=== PATIENT | male | born 1950 | race Caucasian/White ===

== ENCOUNTER 2016-10-21 09:46 | Inpatient (IN) | payer MEDICARE, BC ==
[2016-10-21] MEDS ORDERED: SODIUM CHLORIDE 0.9% 1,000 ML IV ONE (10:01)
--- NOTE | 2016-10-21 10:16 | ED ---
Altered Mental Status HPI - General Chief Complaint: Altered Mental Status Stated Complaint: Lethargic, Confusion Time Seen by Provider: 10/21/16 09:49 Source: EMS, RN notes reviewed Mode of arrival: EMS - History of Present Illness Initial Comments: 66-year-old male presents to the emergency department with a chief complaint of lethargic and altered mental status from the residential. The patient per the residential woke up feeling confused. The patient he doesn't remember waking up in the residential last thing he remembers is waking up in the ambulance. The patient has no complaints. He does suffer from chronic back pain and leg pain the state that he got something for pain in the ambulance and now he is feeling better. The patient at this time has no complaints. The states that they called because he said that he was confused. The patient did suffer a recent hip surgery and is currently at rehabilitation to get better. The states that he normally knows what year it is. The patient at this time thinks it is 2071 when asked. Patient denies any pain at this time. Patient denies any chest pain or shortness of breath he denies headache. - Related Data Home Medications Medication Instructions Recorded Confirmed Aspirin 81 mg PO DAILY 12/21/15 10/21/16 Ergocalciferol [Vitamin D2 50,000 unit PO Q14D 12/21/15 10/21/16 (DRISDOL)] Ranolazine [Ranexa] 500 mg PO BID 12/21/15 10/21/16 Sevelamer [Renvela] 800 mg PO TID 12/21/15 10/21/16 Tamsulosin HCl [Flomax] 0.4 mg PO DAILY 12/21/15 10/21/16 Nitroglycerin Sl Tabs [Nitrostat] 0.4 mg SUBLINGUAL Q5M PRN 02/16/16 10/21/16 Allopurinol [Zyloprim] 200 mg PO HS 06/14/16 10/21/16 Pramipexole [Mirapex] 1 mg PO BID 06/14/16 10/21/16 Rosuvastatin Calcium [Crestor] 5 mg PO DAILY 06/14/16 10/21/16 Imatinib Mesylate [Gleevec] 200 mg PO BID 08/20/16 10/21/16 Cinacalcet [Sensipar] 30 mg PO MOWEFR 09/07/16 10/21/16 Magnesium Oxide [Mag-Ox] 400 mg PO BID 09/07/16 10/21/16 Acetaminophen Tab [Tylenol] 650 mg PO Q6HR PRN 10/21/16 10/21/16 Bisacodyl [Dulcolax] 10 mg RECTAL DAILY PRN 10/21/16 10/21/16 Darbepoetin Richy [Aranesp] 100 mcg SQ DAILY 10/21/16 10/21/16 Folic Acid-Vit B Complex-Vit C 1 cap PO DAILY 10/21/16 10/21/16 [Nephrocaps] Fosrenol Chew Tab 1 tab PO AC-TID 10/21/16 10/21/16 HYDROcodone/APAP 7.5-325MG [[place] 1 tab PO Q4H PRN 10/21/16 10/21/16 7.5-325] INSULIN LISPRO (humaLOG) [humaLOG 0 unit SQ ACHS 10/21/16 10/21/16 (formulary)] Levothyroxine Sodium [Synthroid] 300 mcg PO MOTUWETHFRSA 10/21/16 10/21/16 Levothyroxine Sodium [Synthroid] 450 mcg PO LEON 10/21/16 10/21/16 Magnesium Hydroxide [Milk of 2,400 mg PO BID 10/21/16 10/21/16 Magnesia] Midodrine HCl [ProAmatine] 10 mg PO AC-TID 10/21/16 10/21/16 Midodrine [ProAmatine] 10 mg PO TUTHSA 10/21/16 10/21/16 Na Phos,M-B/Na Phos,Di-Ba [[place] 133 ml RECTAL DAILY PRN 10/21/16 10/21/16 Adult] Sulfamethox-Tmp 800-160Mg [Bactrim 1 tab PO Q12HR 10/21/16 10/21/16 DS 800-160 mg] Warfarin [Coumadin] 2.5 mg PO SUMOTUTHSA 10/21/16 10/21/16 Warfarin [Coumadin] 5 mg PO WEFR 10/21/16 10/21/16 Previous Rx's Medication Instructions Recorded Budesonide-Formot 160-4.5 Mcg 2 puff INHALATION RT-BID puff 10/01/16 [Symbicort 160-4.5 Mcg Inhaler] Furosemide [Lasix] 80 mg PO BID@0900,1600 tab 10/01/16 INSULIN LISPRO (humaLOG) [humaLOG 5 unit SQ AC-TID vial 10/01/16 (formulary)] Insulin Glargine [Lantus] 15 unit SQ DAILY vial 10/01/16 Ipratropium-Albuterol Nebulize 3 ml INHALATION RT-QID ampul.neb 10/01/16 [Duoneb 0.5 mg-3 mg/3 ml Soln] Isosorbide Mononitrate ER [Imdur] 15 mg PO DAILY #30 dose 10/01/16 Lactulose [Cephulac] 30 gm PO TID PRN #0 ml 10/01/16 Lisinopril [Zestril] 2.5 mg PO DAILY #30 tablet 10/01/16 Metoprolol Tartrate 12.5 mg PO DAILY #30 tab 10/01/16 Pantoprazole [Protonix] 40 mg PO AC-BRKFST tablet. 10/01/16 Pregabalin [Lyrica] 50 mg PO HS #30 cap 10/01/16 Allergies Allergy/AdvReac Type Severity Reaction Status Date / Time No Known Allergies Allergy Verified 10/21/16 11:58 Review of Systems ROS Statement: Those systems with pertinent positive or pertinent negative responses have been documented in the HPI. ROS Other: All systems not noted in ROS Statement are negative. Past Medical History Past Medical History: Atrial Fibrillation, Coronary Artery Disease (CAD), Cancer , Chest Pain / Angina, COPD, CVA/TIA, Diabetes Mellitus, Dialysis, Eye Disorder , Hyperlipidemia, Hypertension, Myocardial Infarction ([place]), Prostate Disorder, Renal Disease, Sleep Apnea/CPAP/BIPAP, Thyroid Disorder Additional Past Medical History / Comment(s): Pt recently admitted to [facility] on with cellulitis bilateral lower extremities, toe cyanosis, mild acute/ chronic CHF. 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 Last Myocardial Infarction Date:: unknown History of Any Multi-Drug Resistant Organisms: None Reported Past Surgical History: Back Surgery, Cholecystectomy, Heart Catheterization, Orthopedic Surgery Additional Past Surgical History / Comment(s): 10/21/15 Unsuccessful PTCA proximal RCA, laminectomy, L knee surgery (stapled ligaments back to bone), heart cath x3 (no stents), insertion of peritoneal catheter, Removal of benign cyst from neck, colonoscopy. Past Anesthesia/Blood Transfusion Reactions: No Reported Reaction Past Psychological History: No Psychological Hx Reported Additional Psychological History / Comment(s): Pt resides with his spouse. He has a walker. He no longer drives, his spouse can drive. Smoking Status: Current every day smoker Past Alcohol Use History: None Reported Additional Past Alcohol Use History / Comment(s): started smoking age 13, now down to less than 1 PPD Past Drug Use History: None Reported Additional Drug Use History / Comment(s): . - Past Family History Mother Family Medical History: Cancer Additional Family Medical History / Comment(s): Mother of lung cancer at 86 yrs of age. Father Family Medical History: Cancer Additional Family Medical History / Comment(s): Patient has 2 brothers and 2 sisters which patient states are in good health. General Exam General appearance: alert, in no apparent distress Eye exam: Present: normal appearance, PERRL, EOMI. Absent: scleral icterus, conjunctival injection, periorbital swelling ENT exam: Present: normal exam, mucous membranes moist Neck exam: Present: normal inspection. Absent: tenderness, meningismus, lymphadenopathy Respiratory exam: Present: normal lung sounds bilaterally. Absent: respiratory distress, wheezes, rales, rhonchi, stridor Cardiovascular Exam: Present: regular rate, normal rhythm, normal heart sounds. Absent: systolic murmur, diastolic murmur, rubs, gallop, clicks GI/Abdominal exam: Present: soft, normal bowel sounds. Absent: distended, tenderness, guarding, rebound, rigid Neurological exam: Present: alert, altered (Patient is oriented to self and birthday patient is on oriented to day and date time.), CN II-XII intact. Absent: motor sensory deficit Psychiatric exam: Present: normal affect, normal mood Skin exam: Present: warm, dry, intact, normal color. Absent: rash Course Vital Signs 10/21/16 10/21/16 09:50 11:38 Temperature 97.8 F Pulse Rate 80 75 Respiratory 16 18 Rate Blood Pressure 102/59 97/52 O2 Sat by Pulse 94 L 99 Oximetry Medical Decision Making - Medical Decision Making 66-year-old male presents to the emergency department chief complaint of altered mental status. At this time patient's mentation has returned returned to normal. Laboratory is reviewed that does show stable hemoglobin as well as stable kidney function patient does appear to have an elevated BNP and there is fluid overloaded and evident on the x-ray. This time we will admit the patient we will consult nephrology for fluid assessment due to the fact the patient does not cry urine Lasix will not be used. This was discussed with the patient and family and their plan. All questions have been answered. Patient's admitting physician was contacted who does agree. Dr. Erickson was contacted. - Lab Data Result diagrams: 10/21/16 10:15 10/21/16 10:15 Lab Results 10/21/16 10/21/16 10/21/16 Range/Units 10:15 10:15 10:15 WBC 8.0 (3.8-10.6) k/uL RBC 2.56 L (4.30-5.90) m/uL Hgb 7.5 L (13.0-17.5) gm/dL Hct 24.9 L (39.0-53.0) % MCV 97.2 D (80.0-100.0) fL MCH 29.3 (25.0-35.0) pg MCHC 30.1 L (31.0-37.0) g/dL RDW 18.3 H (11.5-15.5) % Plt Count 177 (150-450) k/uL Neutrophils % 78 % Lymphocytes % 13 % Monocytes % 6 % Eosinophils % 1 % Basophils % 0 % Neutrophils # 6.2 (1.3-7.7) k/uL Lymphocytes # 1.1 (1.0-4.8) k/uL Monocytes # 0.5 (0-1.0) k/uL Eosinophils # 0.1 (0-0.7) k/uL Basophils # 0.0 (0-0.2) k/uL Hypochromasia Slight Anisocytosis Slight Macrocytosis Slight PT (9.0-12.0) sec INR (<1.1) APTT (22.0-30.0) sec Sodium (137-145) mmol/L Potassium (3.5-5.1) mmol/L Chloride (98-107) mmol/L Carbon Dioxide (22-30) mmol/L Anion Gap mmol/L BUN (9-20) mg/dL Creatinine (0.66-1.25) mg/dL Est GFR (MDRD) Af Amer (>60 ml/min/1.73 sqM) Est GFR (MDRD) Non-Af (>60 ml/min/1.73 sqM) Glucose (74-99) mg/dL Calcium (8.4-10.2) mg/dL Total Bilirubin (0.2-1.3) mg/dL AST (17-59) U/L ALT (21-72) U/L Alkaline Phosphatase (38-126) U/L Ammonia <9 (<30) umol/L Total Creatine Kinase 81 (55-170) U/L CK-MB (CK-2) 5.0 H* (0.0-2.4) ng/mL CK-MB (CK-2) Rel Index 6.2 Troponin I 0.067 H* (0.000-0.034) ng/mL NT-Pro-B Natriuret Pep pg/mL Total Protein (6.3-8.2) g/dL Albumin (3.5-5.0) g/dL 10/21/16 10/21/16 10/21/16 Range/Units 10:15 10:15 11:30 WBC (3.8-10.6) k/uL RBC (4.30-5.90) m/uL Hgb (13.0-17.5) gm/dL Hct (39.0-53.0) % MCV (80.0-100.0) fL MCH (25.0-35.0) pg MCHC (31.0-37.0) g/dL RDW (11.5-15.5) % Plt Count (150-450) k/uL Neutrophils % % Lymphocytes % % Monocytes % % Eosinophils % % Basophils % % Neutrophils # (1.3-7.7) k/uL Lymphocytes # (1.0-4.8) k/uL Monocytes # (0-1.0) k/uL Eosinophils # (0-0.7) k/uL Basophils # (0-0.2) k/uL Hypochromasia Anisocytosis Macrocytosis PT 18.4 H (9.0-12.0) sec INR 1.9 (<1.1) APTT 35.8 H (22.0-30.0) sec Sodium 139 (137-145) mmol/L Potassium 4.6 (3.5-5.1) mmol/L Chloride 97 L (98-107) mmol/L Carbon Dioxide 32 H (22-30) mmol/L Anion Gap 10 mmol/L BUN 26 H (9-20) mg/dL Creatinine 3.44 H (0.66-1.25) mg/dL Est GFR (MDRD) Af Amer 22 (>60 ml/min/1.73 sqM) Est GFR (MDRD) Non-Af 18 (>60 ml/min/1.73 sqM) Glucose 68 L (74-99) mg/dL Calcium 7.4 L (8.4-10.2) mg/dL Total Bilirubin 0.4 (0.2-1.3) mg/dL AST 22 (17-59) U/L ALT 29 (21-72) U/L Alkaline Phosphatase 143 H (38-126) U/L Ammonia (<30) umol/L Total Creatine Kinase (55-170) U/L CK-MB (CK-2) (0.0-2.4) ng/mL CK-MB (CK-2) Rel Index Troponin I (0.000-0.034) ng/mL NT-Pro-B Natriuret Pep 03883 pg/mL Total Protein 4.8 L (6.3-8.2) g/dL Albumin 2.5 L (3.5-5.0) g/dL - Radiology Data Radiology results: report reviewed, image reviewed Disposition Clinical Impression: CHF (congestive heart failure), Altered mental status, Elevated troponin I level, Anemia, Acute exacerbation of chronic low back pain, End stage renal failure on dialysis, Volume overload Disposition: ADMITTED IP TO THIS [facility] Condition: Stable Time of Disposition: 13:04 Decision Date: 10/21/16 Decision Time: 13:04
[2016-10-21 10:38] LABS: Anisocytosis Slight; Basophils % (A) 0 %; CH 30.6; CHCM 31.7; Eosinophils # (A) 0.1 k/uL (0-0.7); Eosinophils % (A) 1 %; HCT 24.9 % (39.0-53.0); HDW 3.18; HGB 7.5 gm/dL (13.0-17.5); Hypochromasia Slight; Luc # (Auto) 0.09; Luc % (Auto) 1; Lymphocytes # (A) 1.1 k/uL (1.0-4.8); Lymphocytes % (A) 13 %; MCH 29.3 pg (25.0-35.0); MCHC 30.1 g/dL (31.0-37.0); Macrocytosis Slight; Mean Platelet Volume 8.5; Monocytes # (A) 0.5 k/uL (0-1.0); Monocytes % (A) 6 %; Neutrophils # (A) 6.2 k/uL (1.3-7.7); Neutrophils % (A) 78 %; RBC 2.56 m/uL (4.30-5.90); RDW 18.3 % (11.5-15.5); WBC (Perox) 8.35
[2016-10-21 10:41] LABS: MCV 97.2 fL (80.0-100.0)
[2016-10-21 10:47] LABS: Calcium 7.4 mg/dL (8.4-10.2); INR 1.9 (<1.1); Partial Thromboplastin Time 35.8 sec (22.0-30.0); Potassium 4.6 mmol/L (3.5-5.1); Prothrombin Time 18.4 sec (9.0-12.0); Total Bilirubin 0.4 mg/dL (0.2-1.3); Total Protein 4.8 g/dL (6.3-8.2)
[2016-10-21 11:20] LABS: Troponin I 0.067 ng/mL (0.000-0.034)
--- NOTE | 2016-10-21 11:24 | CT ---
EXAMINATION TYPE: CT brain wo con DATE OF EXAM: 10/21/2016 10:42 AM COMPARISON: 09/14/2016 HISTORY: altered mental status, lethargic CT DLP: 978.[address] of the brain was performed. The ventricles, basal cisterns and sulci overlying the cerebral convexities demonstrate mild enlargem ent. There is no evidence for intracranial hemorrhage or sulcal effacement. There is decreased attenuation about the periventricular white matter and deep white matter of both c erebral hemispheres, compatible with chronic small vessel ischemia. Differential diagnosis does inclu de demyelination. No mass effects are seen.No midline shift. Osseous calvarium is intact. Chronic sinusitis right maxillary sinus. If symptoms persist consider MRI. IMPRESSION: 1. Age related atrophic and chronic small vessel ischemic change without acute intracranial process s een at this time.
--- NOTE | 2016-10-21 11:26 | XR ---
EXAMINATION TYPE: XR chest 2V DATE OF EXAM: 10/21/2016 10:46 AM COMPARISON: 09/29/2016 HISTORY: Shortness of breath TECHNIQUE: Frontal and lateral views of the chest are obtained. FINDINGS: Large bore central venous line. Scattered senescent parenchymal changes noted. Hyperinflation compatible with COPD. The heart is enlarged. Pulmonary venous congestion with scattered areas of infiltrate may reflect vas cular overload. Mediastinal structures are stable and grossly unremarkable. No evidence for hilar prominence. Degenerative changes dorsal spine. IMPRESSION: 1. The heart is enlarged. Pulmonary venous congestion with scattered areas of infiltrate may reflect vascular overload.
[2016-10-21] MEDS ORDERED: ACETAMINOPHEN TAB 325 MG TAB PO PRN (13:05)
[2016-10-21] MEDS ORDERED: NITROGLYCERIN SL TABS 0.4 MG TAB SUBLINGUAL PRN (13:05)
[2016-10-21] MEDS ORDERED: NA PHOS,M-B/NA PHOS,DI-BA 133 ML ENEMA RECTAL PRN (13:05)
[2016-10-21] MEDS ORDERED: LACTULOSE 20 GM/30 ML CUP PO PRN (13:05)
[2016-10-21] MEDS ORDERED: BISACODYL 10 MG SUPP RECTAL PRN (13:05)
[2016-10-21] MEDS: HYDROcodone/APAP 7.5-325MG 1 EACH TAB PO PRN ×3 (13:39→20:16)
[2016-10-21] MEDS: SEVELAMER 800 MG TAB PO SCH ×2 (15:31→15:32)
[2016-10-21] MEDS: IPRATROPIUM-ALBUTEROL 3 ML NEB INHALATION SCH ×2 (15:34→19:53)
[2016-10-21 16:49] LABS: Glucose,Whole Blood 135 mg/dL (75-99)
[2016-10-21] MEDS: MIDODRINE 5 MG TAB PO SCH (16:49)
[2016-10-21] MEDS: COLLAGENASE 250 UNIT/GM OINTMENT 30 GM TUBE TOPICAL SCH (16:49)
[2016-10-21] MEDS ORDERED: WARFARIN 2.5 MG TAB PO SCH (18:00)
[2016-10-21] MEDS: INSULIN LISPRO (humaLOG) 300 UNIT/3 ML VIAL SQ SCH ×2 (18:05→21:34)
[2016-10-21] MEDS: FUROSEMIDE 80 MG TAB PO SCH (18:30)
[2016-10-21] MEDS: SYMBICORT 160-4.5 MCG INHALER INHALATION SCH (19:52)
[2016-10-21 20:10] LABS: Creatine Kinase MB 6.2 ng/mL (0.0-2.4); Troponin I 0.072 ng/mL (0.000-0.034)
[2016-10-21] MEDS: ALLOPURINOL 100 MG TAB PO SCH (20:19)
[2016-10-21] MEDS: MAGNESIUM OXIDE 400 MG TAB PO SCH (20:20)
[2016-10-21] MEDS: PRAMIPEXOLE 1 MG TAB PO SCH (20:20)
[2016-10-21] MEDS: MAGNESIUM HYDROXIDE 2,400 MG/10 ML CUP PO SCH ×2 (20:20→20:26)
[2016-10-21] MEDS: PREGABALIN 50 MG CAP PO SCH (20:21)
[2016-10-21] MEDS: RANOLAZINE 500 MG TAB.ER.12H PO SCH (20:21)
[2016-10-21] MEDS: SULFAMETHOX-TMP 800-160MG 1 EACH TAB PO SCH (20:21)
[2016-10-21 20:45] LABS: Glucose,Whole Blood 159 mg/dL (75-99)
[2016-10-22] MEDS: HYDROcodone/APAP 7.5-325MG 1 EACH TAB PO PRN ×3 (00:08→13:51)
[2016-10-22] MEDS ORDERED: HEPARIN SODIUM,PORCINE 5,000 UNIT/ML 1 ML VIAL ONE (01:10)
[2016-10-22 02:29] LABS: Creatine Kinase MB 6.2 ng/mL (0.0-2.4)
[2016-10-22 02:30] LABS: Troponin I 0.067 ng/mL (0.000-0.034)
[2016-10-22 05:48] LABS: Glucose,Whole Blood 115 mg/dL (75-99)
[2016-10-22 06:14] LABS: Anisocytosis Slight; Basophils % (A) 0 %; CH 29.9; CHCM 30.1; Eosinophils # (A) 0.1 k/uL (0-0.7); Eosinophils % (A) 1 %; HCT 25.5 % (39.0-53.0); HDW 3.06; HGB 7.8 gm/dL (13.0-17.5); Hypochromasia Marked; Luc # (Auto) 0.11; Luc % (Auto) 2; Lymphocytes # (A) 0.7 k/uL (1.0-4.8); Lymphocytes % (A) 10 %; MCH 30.6 pg (25.0-35.0); MCHC 30.6 g/dL (31.0-37.0); MCV 100.1 fL (80.0-100.0); Macrocytosis Slight; Mean Platelet Volume 7.8; Monocytes # (A) 0.4 k/uL (0-1.0); Monocytes % (A) 5 %; Neutrophils # (A) 6.3 k/uL (1.3-7.7); Neutrophils % (A) 83 %; RBC 2.55 m/uL (4.30-5.90); RDW 17.9 % (11.5-15.5); WBC 7.7 k/uL (3.8-10.6); WBC (Perox) 8.19
[2016-10-22 06:20] LABS: INR 1.9 (<1.1); Prothrombin Time 18.5 sec (9.0-12.0)
[2016-10-22 06:29] LABS: Calcium 7.6 mg/dL (8.4-10.2); Potassium 4.9 mmol/L (3.5-5.1); Total Bilirubin 0.4 mg/dL (0.2-1.3); Total Protein 4.8 g/dL (6.3-8.2)
[2016-10-22] MEDS: MIDODRINE 5 MG TAB PO SCH ×3 (06:40→17:21)
[2016-10-22] MEDS: INSULIN LISPRO (humaLOG) 300 UNIT/3 ML VIAL SQ SCH ×3 (06:40→17:23)
[2016-10-22] MEDS: LEVOTHYROXINE 100 MCG TAB PO SCH (06:40)
[2016-10-22] MEDS: SEVELAMER 800 MG TAB PO SCH ×3 (06:40→17:21)
[2016-10-22] MEDS: PANTOPRAZOLE 40 MG TABLET PO SCH (06:40)
--- NOTE | 2016-10-22 07:59 | P.HPIM ---
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 under the care of hematology oncology, was recently hospitalized at [facility] for a prolonged period of time after he fell at dialysis ended up with left intertrochanteric hip fracture subsequently was found to have a third-degree of blood for which she was placed on transvenous pacemaker subsequent he was switched to a permanent pacemaker because of that, his hospital stay was complicated by acute respiratory failure , severe medical debility, pneumonia, he ended up getting transferred to [facility] for physical therapy rehabitation patient has been doing fine up until recently when he developed to have a significant pain and the gangrenous changes in the bilateral total secondary to severe PAD and has been under the care of Dr. Farrell and he was supposed to follow-up with him as an outpatient. Yesterday in the morning patient became quite unresponsive his blood glucose dropped to 67 and the patient became quite unresponsive he was transferred to the emergency department at [facility] and computed tomography scan the brain did not show any evidence of acute infarct or bleed a chest x-ray showed congestive heart failure even though the patient didn't receive dialysis 4 times last week, and the patient was having severe gangrenous changes and his left foot for which we contacted Dr. Farrell for possible amputation while his in the hospital. Review of Systems Constitutional: Reports chronic pain, Reports fatigue, Reports lethargy, Reports malaise, Reports weakness, Reports weight loss Eyes: bilateral blurred vision, denies bulging eye, denies decreased vision, denies diplopia Ears: bilateral: decreased hearing Ears, nose, mouth and throat: Denies dysphagia, Denies neck lump, Denies sore throat Cardiovascular: Reports decreased exercise tolerance, Reports dyspnea on exertion, Reports high blood pressure, Reports irregular heart beat, Reports shortness of breath, Denies chest pain, Denies rapid heart beat, Denies syncope Respiratory: Reports dyspnea, Reports sleep apnea, Reports snoring, Denies congestion, Denies cough, Denies cough with sputum, Denies home oxygen, Denies wheezing Gastrointestinal: Reports nausea, Denies abdominal pain, Denies bloating, Denies BRBPR, Denies heartburn, Denies hematemesis, Denies hematochezia, Denies indigestion, Denies melena, Denies vomiting Genitourinary: Reports dysuria, Denies polyuria Musculoskeletal: Reports fractures, Reports frequent falls, Reports gait dysfunction, Reports low back pain, Reports morning stiffness Musculoskeletal: left: ankle pain, ankle stiffness, ankle swelling, hip pain, bilateral: foot pain, absent: as per HPI, elbow pain, elbow stiffness, elbow swelling, foot stiffness, hand pain, hand stiffness, hand swelling, hip stiffness, hip swelling, knee pain, knee stiffness, knee swelling, shoulder pain , shoulder stiffness, shoulder swelling, wrist pain, wrist stiffness, wrist swelling Integumentary: Denies pruritus, Denies rash Neurological: Reports confusion, Reports gait dysfunction, Reports weakness, Reports visual changes Psychiatric: Reports anxiety, Reports depression, Reports sleep disturbances, Denies suicidal ideation Endocrine: Denies fatigue, Denies weight change Past Medical History Past Medical History: Atrial Fibrillation, Coronary Artery Disease (CAD), Cancer , Chest Pain / Angina, COPD, CVA/TIA, Diabetes Mellitus, Dialysis, Eye Disorder , Hyperlipidemia, Hypertension, Myocardial Infarction (CA), Prostate Disorder, Renal Disease, Sleep Apnea/CPAP/BIPAP, Thyroid Disorder Additional Past Medical History / Comment(s): Pt recently admitted to [facility] on with cellulitis bilateral lower extremities, toe cyanosis, mild acute/ chronic CHF. Other HX: IDDM type II-insulin pump, ESRD dialysis-peritoneal , nephrolithiasis, chronic anemia, leukemia-CML, metabolic bone disease, abnormal [place] chromosome, "slight stroke"-no deficits, htn cardiovascular disease, chronic CHF, PAD, current discolored toes, chronic low back pain-nerve damage from injury, SAMANTHA doesn't wear his bipap, diabetic neuropathy bilateral legs and feet, diabetic retinopathy, gout, DDD, diverticulosis, vertigo, RLS, BPH. Last Myocardial Infarction Date:: unknown History of Any Multi-Drug Resistant Organisms: None Reported Past Surgical History: Back Surgery, Cholecystectomy, Heart Catheterization, Orthopedic Surgery Additional Past Surgical History / Comment(s): 10/21/15 Unsuccessful PTCA proximal RCA, laminectomy, L knee surgery (stapled ligaments back to bone), heart cath x3 (no stents), insertion of peritoneal catheter, Removal of benign cyst from neck, colonoscopy. Past Anesthesia/Blood Transfusion Reactions: No Reported Reaction Past Psychological History: No Psychological Hx Reported Additional Psychological History / Comment(s): Pt resides with his spouse. He has a walker. He no longer drives, his spouse can drive. Smoking Status: Current every day smoker Past Alcohol Use History: None Reported Additional Past Alcohol Use History / Comment(s): started smoking age 13, now down to less than 1 PPD Past Drug Use History: None Reported Additional Drug Use History / Comment(s): . - Past Family History Mother Family Medical History: Cancer Additional Family Medical History / Comment(s): Mother of lung cancer at 86 yrs of age. Father Family Medical History: Cancer Additional Family Medical History / Comment(s): Patient has 2 brothers and 2 sisters which patient states are in good health. Medications and Allergies Home Medications Medication Instructions Recorded Confirmed Type Aspirin 81 mg PO DAILY 12/21/15 10/21/16 History Ergocalciferol [Vitamin D2 50,000 unit PO Q14D 12/21/15 10/21/16 History (DRISDOL)] Ranolazine [Ranexa] 500 mg PO BID 12/21/15 10/21/16 History Sevelamer [Renvela] 800 mg PO TID 12/21/15 10/21/16 History Tamsulosin HCl [Flomax] 0.4 mg PO DAILY 12/21/15 10/21/16 History Nitroglycerin Sl Tabs [Nitrostat] 0.4 mg SUBLINGUAL Q5M PRN 02/16/16 10/21/16 History Allopurinol [Zyloprim] 200 mg PO HS 06/14/16 10/21/16 History Pramipexole [Mirapex] 1 mg PO BID 06/14/16 10/21/16 History Rosuvastatin Calcium [Crestor] 5 mg PO DAILY 06/14/16 10/21/16 History Imatinib Mesylate [Gleevec] 200 mg PO BID 08/20/16 10/21/16 History Cinacalcet [Sensipar] 30 mg PO MOWEFR 09/07/16 10/21/16 History Magnesium Oxide [Mag-Ox] 400 mg PO BID 09/07/16 10/21/16 History Acetaminophen Tab [Tylenol] 650 mg PO Q6HR PRN 10/21/16 10/21/16 History Bisacodyl [Dulcolax] 10 mg RECTAL DAILY PRN 10/21/16 10/21/16 History Darbepoetin Richy [Aranesp] 100 mcg SQ DAILY 10/21/16 10/21/16 History Folic Acid-Vit B Complex-Vit C 1 cap PO DAILY 10/21/16 10/21/16 History [Nephrocaps] Fosrenol Chew Tab 1 tab PO AC-TID 10/21/16 10/21/16 History HYDROcodone/APAP 7.5-325MG [[place] 1 tab PO Q4H PRN 10/21/16 10/21/16 History 7.5-325] INSULIN LISPRO (humaLOG) [humaLOG 0 unit SQ ACHS 10/21/16 10/21/16 History (formulary)] Levothyroxine Sodium [Synthroid] 300 mcg PO MOTUWETHFRSA 10/21/16 10/21/16 History Levothyroxine Sodium [Synthroid] 450 mcg PO LEON 10/21/16 10/21/16 History Magnesium Hydroxide [Milk of 2,400 mg PO BID 10/21/16 10/21/16 History Magnesia] Midodrine HCl [ProAmatine] 10 mg PO AC-TID 10/21/16 10/21/16 History Midodrine [ProAmatine] 10 mg PO TUTHSA 10/21/16 10/21/16 History Na Phos,M-B/Na Phos,Di-Ba [Fleet 133 ml RECTAL DAILY PRN 10/21/16 10/21/16 History Adult] Sulfamethox-Tmp 800-160Mg [Bactrim 1 tab PO Q12HR 10/21/16 10/21/16 History DS 800-160 mg] Warfarin [Coumadin] 2.5 mg PO SUMOTUTHSA 10/21/16 10/21/16 History Warfarin [Coumadin] 5 mg PO WEFR 10/21/16 10/21/16 History Allergies Allergy/AdvReac Type Severity Reaction Status Date / Time No Known Allergies Allergy Verified 10/21/16 11:58 Physical Exam Vitals: Vital Signs Temp Pulse Resp BP Pulse Ox 10/21/16 13:29 98.0 F 77 18 97/51 96 - Constitutional General appearance: average body habitus, mild distress - EENT Eyes: anicteric sclerae, EOMI, PERRLA, no ptosis, no scleral icterus, normal appearance ENT: hard of hearing, normal oropharynx, no thrush Ears: bilateral: normal - Neck Neck: no lymphadenopathy, normal ROM, no rigidity, no stridor, no thyromegaly Carotids: bilateral: upstroke delayed Thyroid: bilateral: normal size - Respiratory Respiratory: bilateral: diminished, negative: dullness, rales, rhonchi, wheezing , prolonged expiration - Cardiovascular Rhythm: irregularly irregular Heart sounds: normal: S1, S2 Abnormal Heart Sounds: systolic murmur, no rub (Permanent pacemaker ), no click - Gastrointestinal General gastrointestinal: normal bowel sounds, soft, no splenomegaly, no tenderness, no umbilical hernia, no ventral hernia - Integumentary Integumentary: normal, normal turgor, ulcer (Left heel and the right heel with gangrenous changes especially in the left foot more than the right toes.) - Neurologic Neurologic: CNII-XII intact - Musculoskeletal Musculoskeletal: generalized weakness, strength equal bilaterally - Psychiatric Psychiatric: A&O x's 3, appropriate affect, intact judgment & insight Results CBC & Chem 7: 10/22/16 05:28 10/22/16 05:28 Thrombosis Risk Factor Assmnt - DVT/VTE Prophylaxis DVT/VTE Prophylaxis: Pharmacologic Prophylaxis ordered, Mechanical Prophylaxis ordered Assessment and Plan Plan: Assessment and plan: 1. Altered level of consciousness most likely secondary to metabolic encephalopathy and hypoglycemia, has recovered very well since he was seen in the emergency department. 2. Acute diastolic heart failure. Patient will be going for another session of dialysis. Meanwhile continue Lasix 80 mg orally twice every day, lisinopril 2.5 mg orally once every day, metoprolol 12.5 mg orally once every day. 3. Atherosclerotic cardiovascular disease . Continue Imdur 15 mg orally once every day, metoprolol 12.5 mg orally once every day, Lipitor 20 mg orally once every day, aspirin 81 mg orally once every day, Plavix 75 mg orally once every day. 4. Severe PAD . With gangrenous changes to the left foot and the right toes consult general surgery for possible amputation. 5. Chronic diastolic heart failure with mild exacerbation. Continue patient on peritoneal dialysis.IV diuretics Lasix 80 mg every 12 hours. 6. Diabetes mellitus type 2. Hold off his Lantus as well as his Humalog because of hyperglycemia. Restart tomorrow morning 7. hypothyroidism continue levothyroxine to 300 g orally daily. 8. hyperlipidemia. We'll continue Lipitor 10 mg orally once every day. 9.End-stage renal disease . Continue patient on hemodialysis through permanent catheter, patient will have his PD catheter removed by Dr. reis supposedly on Saturday. Continue Sensipar 30 mg and Saturday, continue Renvela 800 mg orally 3 times every day, continue Aranesp 100 g once every week. 10. Hypertension and hypertensive cardiovascular disease. Continue lisinopril 2.5 mg orally once every day, metoprolol 12.5 mg orally once every day. 11. Restless leg syndrome. Continue Mirapex 1 mg orally twice every day. 12. Gout. Stable. 13. Paroxysmal atrial fibrillation. Continue Coumadin keep his INR between 2- 3. 14. 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 15. CML. Stable. 16. BPH. Continue with Flomax 0.4 mg orally once every day. 17.Peripheral neuropathy . Continue Lyrica 50 mg orally bedtime. 18. Status post left IT fracture with IM nail with an infected wound currently on Bactrim double strength twice every day. 19. DVT prophylaxis. Continue Coumadin for now. 20. GI prophylaxis. Continue Protonix 40 mg orally once every day. 21. Patient would want CPR but he does not want intubation. 22. Overall prognosis is guarded. 23. Admit to inpatient. Estimate a length of stay 2 midnights.
[2016-10-22] MEDS: COLLAGENASE 250 UNIT/GM OINTMENT 30 GM TUBE TOPICAL SCH (08:44)
[2016-10-22] MEDS: MAGNESIUM OXIDE 400 MG TAB PO SCH ×2 (08:52→20:38)
[2016-10-22] MEDS: ISOSORBIDE MONONITRATE ER 15 MG TAB PO SCH (08:52)
[2016-10-22] MEDS: FOLIC ACID-VIT B COMPLEX-VIT C 1 CAP PO SCH (08:53)
[2016-10-22] MEDS: ATORVASTATIN 10 MG TAB PO SCH (08:53)
[2016-10-22] MEDS: SULFAMETHOX-TMP 800-160MG 1 EACH TAB PO SCH (08:53)
[2016-10-22] MEDS: TAMSULOSIN 0.4 MG CAP.ER.24H PO SCH (08:53)
[2016-10-22] MEDS: FUROSEMIDE 80 MG TAB PO SCH ×2 (08:53→16:04)
[2016-10-22] MEDS: ASPIRIN 81 MG CHEW PO SCH (08:53)
[2016-10-22] MEDS: MAGNESIUM HYDROXIDE 2,400 MG/10 ML CUP PO SCH ×2 (08:53→20:38)
[2016-10-22] MEDS: PRAMIPEXOLE 1 MG TAB PO SCH ×2 (08:53→20:37)
[2016-10-22] MEDS: LISINOPRIL 2.5 MG TAB PO SCH (08:53)
[2016-10-22] MEDS: METOPROLOL TARTRATE 12.5 MG TAB PO SCH (08:54)
[2016-10-22] MEDS: RANOLAZINE 500 MG TAB.ER.12H PO SCH ×2 (09:02→20:38)
[2016-10-22] MEDS: IPRATROPIUM-ALBUTEROL 3 ML NEB INHALATION SCH ×4 (10:32→20:45)
[2016-10-22] MEDS: SYMBICORT 160-4.5 MCG INHALER INHALATION SCH ×2 (10:32→20:45)
[2016-10-22 11:41] VITALS: BMI 38.1
[2016-10-22] MEDS: DARBEPOETIN ALFA 100MCG/0.5ML SYRINGE SQ SCH (11:41)
[2016-10-22 11:55] LABS: Glucose,Whole Blood 131 mg/dL (75-99)
[2016-10-22] MEDS ORDERED: ASPIRIN 325 MG TAB PO SCH (12:00)
[2016-10-22] MEDS ORDERED: CINACALCET 30 MG TAB PO SCH (12:00)
--- NOTE | 2016-10-22 14:09 | P.PN ---
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 for physical therapy rehabitation patient has been doing fine up until recently when he developed to have a significant pain and the gangrenous changes in the bilateral total secondary to severe PAD and has been under the care of Dr. Farrell and he was supposed to follow-up with him as an outpatient. Yesterday in the morning patient became quite unresponsive his blood glucose dropped to 67 and the patient became quite unresponsive he was transferred to the emergency department at [facility] and computed tomography scan the brain did not show any evidence of acute infarct or bleed a chest x-ray showed congestive heart failure even though the patient didn't receive dialysis 4 times last week, and the patient was having severe gangrenous changes and his left foot for which we contacted Dr. Farrell for possible amputation while his in the hospital. 10/22: Repeat BUN 23 and creatinine 3.27. INR 1.9, alkaline phosphatase 152. Hemoglobin 7.8. Complete blood glucose running between 115 and 159. Consult pending for Dr. Farrell and nephrology are following. Consult with Dr. Winters as patient is scheduled for CAPD removal on Saturday. Objective - Vital Signs Vital signs: Vital Signs Temp 97.0 F L 10/22/16 04:00 Pulse 56 L 10/22/16 04:00 Resp 18 10/22/16 04:00 BP 112/60 10/22/16 04:00 Pulse Ox 90 L 10/22/16 04:00 Intake & Output 10/21/16 10/22/16 10/22/16 18:59 06:59 18:59 Output Total 220 Balance -220 Weight 114 kg 110.5 kg Output: Urine 220 Other: # Voids 1 - Exam General appearance: average body habitus, mild distress - EENT Eyes: anicteric sclerae, EOMI, PERRLA, no ptosis, no scleral icterus, normal appearance ENT: hard of hearing, normal oropharynx, no thrush Ears: bilateral: normal - Neck Neck: no lymphadenopathy, normal ROM, no rigidity, no stridor, no thyromegaly Carotids: bilateral: upstroke delayed Thyroid: bilateral: normal size - Respiratory Respiratory: bilateral: diminished, negative: dullness, rales, rhonchi, wheezing , prolonged expiration - Cardiovascular Rhythm: irregularly irregular Heart sounds: normal: S1, S2 Abnormal Heart Sounds: systolic murmur, no rub (Permanent pacemaker ), no click - Gastrointestinal General gastrointestinal: normal bowel sounds, soft, no splenomegaly, no tenderness, no umbilical hernia, no ventral hernia - Integumentary Integumentary: normal, normal turgor, ulcer (Left heel and the right heel with gangrenous changes especially in the left foot more than the right toes.) - Neurologic Neurologic: CNII-XII intact - Musculoskeletal Musculoskeletal: generalized weakness, strength equal bilaterally - Psychiatric Psychiatric: A&O x's 3, appropriate affect, intact judgment & insight - Labs CBC & Chem 7: 10/22/16 05:28 10/22/16 05:28 Labs: Abnormal Lab Results - Last 24 Hours (Table) 10/21/16 10/21/16 10/21/16 Range/Units 16:48 18:57 20:44 RBC (4.30-5.90) m/uL Hgb (13.0-17.5) gm/dL Hct (39.0-53.0) % MCV (80.0-100.0) fL MCHC (31.0-37.0) g/dL RDW (11.5-15.5) % Lymphocytes # (1.0-4.8) k/uL PT (9.0-12.0) sec Chloride (98-107) mmol/L Carbon Dioxide (22-30) mmol/L BUN (9-20) mg/dL Creatinine (0.66-1.25) mg/dL Glucose (74-99) mg/dL POC Glucose (mg/dL) 135 H 159 H (75-99) mg/dL Calcium (8.4-10.2) mg/dL Alkaline Phosphatase (38-126) U/L CK-MB (CK-2) 6.2 H* (0.0-2.4) ng/mL Troponin I 0.072 H* (0.000-0.034) ng/mL Total Protein (6.3-8.2) g/dL Albumin (3.5-5.0) g/dL 10/22/16 10/22/16 10/22/16 Range/Units 01:26 05:28 05:28 RBC 2.55 L (4.30-5.90) m/uL Hgb 7.8 L (13.0-17.5) gm/dL Hct 25.5 L (39.0-53.0) % MCV 100.1 H (80.0-100.0) fL MCHC 30.6 L (31.0-37.0) g/dL RDW 17.9 H (11.5-15.5) % Lymphocytes # 0.7 L (1.0-4.8) k/uL PT 18.5 H (9.0-12.0) sec Chloride (98-107) mmol/L Carbon Dioxide (22-30) mmol/L BUN (9-20) mg/dL Creatinine (0.66-1.25) mg/dL Glucose (74-99) mg/dL POC Glucose (mg/dL) (75-99) mg/dL Calcium (8.4-10.2) mg/dL Alkaline Phosphatase (38-126) U/L CK-MB (CK-2) 6.2 H* (0.0-2.4) ng/mL Troponin I 0.067 H* (0.000-0.034) ng/mL Total Protein (6.3-8.2) g/dL Albumin (3.5-5.0) g/dL 10/22/16 10/22/16 Range/Units 05:28 05:46 RBC (4.30-5.90) m/uL Hgb (13.0-17.5) gm/dL Hct (39.0-53.0) % MCV (80.0-100.0) fL MCHC (31.0-37.0) g/dL RDW (11.5-15.5) % Lymphocytes # (1.0-4.8) k/uL PT (9.0-12.0) sec Chloride 97 L (98-107) mmol/L Carbon Dioxide 32 H (22-30) mmol/L BUN 23 H (9-20) mg/dL Creatinine 3.27 H (0.66-1.25) mg/dL Glucose 105 H (74-99) mg/dL POC Glucose (mg/dL) 115 H (75-99) mg/dL Calcium 7.6 L (8.4-10.2) mg/dL Alkaline Phosphatase 152 H (38-126) U/L CK-MB (CK-2) (0.0-2.4) ng/mL Troponin I (0.000-0.034) ng/mL Total Protein 4.8 L (6.3-8.2) g/dL Albumin 2.5 L (3.5-5.0) g/dL Assessment and Plan Plan: 1. Metabolic encephalopathy and hypoglycemia, has recovered very well since he was seen in the emergency department. 2. Acute diastolic heart failure. Patient will be going for another session of dialysis. Meanwhile continue Lasix 80 mg orally twice every day, lisinopril 2.5 mg orally once every day, metoprolol 12.5 mg orally once every day. 3. Atherosclerotic cardiovascular disease . Continue Imdur 15 mg orally once every day, metoprolol 12.5 mg orally once every day, Lipitor 20 mg orally once every day, aspirin 81 mg orally once every day, Plavix 75 mg orally once every day. 4. Severe PAD . With gangrenous changes to the left foot and the right toes consult general surgery for possible amputation. 5. Chronic diastolic heart failure with mild exacerbation. Continue patient on peritoneal dialysis.IV diuretics Lasix 80 mg every 12 hours. 6. Diabetes mellitus type 2. Hold off his Lantus as well as his Humalog because of hyperglycemia. Restart tomorrow morning 7. hypothyroidism continue levothyroxine to 300 g orally daily. 8. hyperlipidemia. We'll continue Lipitor 10 mg orally once every day. 9.End-stage renal disease . Continue patient on hemodialysis through permanent catheter, patient will have his PD catheter removed by Dr. reis supposedly on Saturday. Continue Sensipar 30 mg and Saturday, continue Renvela 800 mg orally 3 times every day, continue Aranesp 100 g once every week. Consult for Dr. Winters for CAPD removal 10. Hypertension and hypertensive cardiovascular disease. Continue lisinopril 2.5 mg orally once every day, metoprolol 12.5 mg orally once every day. 11. Restless leg syndrome. Continue Mirapex 1 mg orally twice every day. 12. Gout. Stable. 13. Paroxysmal atrial fibrillation. Continue Coumadin keep his INR between 2- 3. 14. 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 15. CML. Stable. 16. BPH. Continue with Flomax 0.4 mg orally once every day. 17.Peripheral neuropathy . Continue Lyrica 50 mg orally bedtime. 18. Status post left IT fracture with IM nail with an infected wound currently on Bactrim double strength twice every day. 19. DVT prophylaxis. Continue Coumadin for now. 20. GI prophylaxis. Continue Protonix 40 mg orally once every day. 21. Patient would want CPR but he does not want intubation. 22. Overall prognosis is guarded. Discharge plan: Impression and plan of care have been directed as dictated by the signing physician. Lacey Peck nurse practitioner acting as scribe for signing physician. Time with Patient: Greater than 30
--- NOTE | 2016-10-22 16:20 | P.GSCN ---
History of Present Illness Consult date: 10/22/16 Reason for Consult: Renal failure History of present illness: Patient is well known to our service. The patient is a history of renal failure. We placed a peritoneal dialysis catheter previously. He is having good flow but apparently the filtration is poor and for that reason he stopped using the peritoneal catheter. He is actually scheduled as an outpatient to have the catheter removed on 10/24. We are asked to see this patient for possibly removing the catheter while he is here. Review of Systems The patient denies any acute changes in his vision or hearing, no dysphagia or odynophagia, no chest pain or shortness of breath, no dysuria or hematuria, no headache, no runny nose, no rectal bleeding or melena, no unexplained weight loss Past Medical History Past Medical History: Atrial Fibrillation, Coronary Artery Disease (CAD), Cancer , Chest Pain / Angina, COPD, CVA/TIA, Diabetes Mellitus, Dialysis, Eye Disorder , Hyperlipidemia, Hypertension, Myocardial Infarction ([place]), Prostate Disorder, Renal Disease, Sleep Apnea/CPAP/BIPAP, Thyroid Disorder Additional Past Medical History / Comment(s): Pt recently admitted to [facility] on with cellulitis bilateral lower extremities, toe cyanosis, mild acute/ chronic CHF. Other HX: IDDM type II-insulin pump, ESRD dialysis-peritoneal , nephrolithiasis, chronic anemia, leukemia-CML, metabolic bone disease, abnormal [place] chromosome, "slight stroke"-no deficits, htn cardiovascular disease, chronic CHF, PAD, current discolored toes, chronic low back pain-nerve damage from injury, SAMANTHA doesn't wear his bipap, diabetic neuropathy bilateral legs and feet, diabetic retinopathy, gout, DDD, diverticulosis, vertigo, RLS, BPH. Last Myocardial Infarction Date:: unknown History of Any Multi-Drug Resistant Organisms: None Reported Past Surgical History: Back Surgery, Cholecystectomy, Heart Catheterization, Orthopedic Surgery Additional Past Surgical History / Comment(s): 10/21/15 Unsuccessful PTCA proximal RCA, laminectomy, L knee surgery (stapled ligaments back to bone), heart cath x3 (no stents), insertion of peritoneal catheter, Removal of benign cyst from neck, colonoscopy. Past Anesthesia/Blood Transfusion Reactions: No Reported Reaction Past Psychological History: No Psychological Hx Reported Additional Psychological History / Comment(s): Pt resides with his spouse. He has a walker. He no longer drives, his spouse can drive. Smoking Status: Current every day smoker Past Alcohol Use History: None Reported Additional Past Alcohol Use History / Comment(s): started smoking age 13, now down to less than 1 PPD Past Drug Use History: None Reported Additional Drug Use History / Comment(s): . - Past Family History Mother Family Medical History: Cancer Additional Family Medical History / Comment(s): Mother of lung cancer at 86 yrs of age. Father Family Medical History: Cancer Additional Family Medical History / Comment(s): Patient has 2 brothers and 2 sisters which patient states are in good health. Medications and Allergies Home Medications Medication Instructions Recorded Confirmed Type Aspirin 81 mg PO DAILY 12/21/15 10/21/16 History Ergocalciferol [Vitamin D2 50,000 unit PO Q14D 12/21/15 10/21/16 History (DRISDOL)] Ranolazine [Ranexa] 500 mg PO BID 12/21/15 10/21/16 History Sevelamer [Renvela] 800 mg PO TID 12/21/15 10/21/16 History Tamsulosin HCl [Flomax] 0.4 mg PO DAILY 12/21/15 10/21/16 History Nitroglycerin Sl Tabs [Nitrostat] 0.4 mg SUBLINGUAL Q5M PRN 02/16/16 10/21/16 History Allopurinol [Zyloprim] 200 mg PO HS 06/14/16 10/21/16 History Pramipexole [Mirapex] 1 mg PO BID 06/14/16 10/21/16 History Rosuvastatin Calcium [Crestor] 5 mg PO DAILY 06/14/16 10/21/16 History Imatinib Mesylate [Gleevec] 200 mg PO BID 08/20/16 10/21/16 History Cinacalcet [Sensipar] 30 mg PO MOWEFR 09/07/16 10/21/16 History Magnesium Oxide [Mag-Ox] 400 mg PO BID 09/07/16 10/21/16 History Acetaminophen Tab [Tylenol] 650 mg PO Q6HR PRN 10/21/16 10/21/16 History Bisacodyl [Dulcolax] 10 mg RECTAL DAILY PRN 10/21/16 10/21/16 History Darbepoetin Richy [Aranesp] 100 mcg SQ DAILY 10/21/16 10/21/16 History Folic Acid-Vit B Complex-Vit C 1 cap PO DAILY 10/21/16 10/21/16 History [Nephrocaps] HYDROcodone/APAP 7.5-325MG [[place] 1 tab PO Q4H PRN 10/21/16 10/21/16 History 7.5-325] INSULIN LISPRO (humaLOG) [humaLOG 0 unit SQ ACHS 10/21/16 10/21/16 History (formulary)] Levothyroxine Sodium [Synthroid] 300 mcg PO MOTUWETHFRSA 10/21/16 10/21/16 History Levothyroxine Sodium [Synthroid] 450 mcg PO LEON 10/21/16 10/21/16 History Magnesium Hydroxide [Milk of 2,400 mg PO BID 10/21/16 10/21/16 History Magnesia] Midodrine HCl [ProAmatine] 10 mg PO AC-TID 10/21/16 10/21/16 History Midodrine [ProAmatine] 10 mg PO TUTHSA 10/21/16 10/21/16 History Na Phos,M-B/Na Phos,Di-Ba [Fleet 133 ml RECTAL DAILY PRN 10/21/16 10/21/16 History Adult] Sulfamethox-Tmp 800-160Mg [Bactrim 1 tab PO Q12HR 10/21/16 10/21/16 History DS 800-160 mg] Warfarin [Coumadin] 2.5 mg PO SUMOTUTHSA 10/21/16 10/21/16 History Warfarin [Coumadin] 5 mg PO WEFR 10/21/16 10/21/16 History Lanthanum Carbonate [Fosrenol] 1,000 mg PO DIRECTED 10/22/16 10/22/16 History Allergies Allergy/AdvReac Type Severity Reaction Status Date / Time No Known Allergies Allergy Verified 10/21/16 11:58 Surgical - Exam Vital Signs Temp Pulse Resp BP Pulse Ox 97.8 F 80 16 102/59 94 L 10/21/16 09:50 10/21/16 09:50 10/21/16 09:50 10/21/16 09:50 10/21/16 09:50 Physical exam: General: Well-developed, well-nourished HEENT: Normocephalic, sclerae nonicteric Abdomen: Nontender, nondistended, pd Catheter noted Extremities: No edema Neuro: Confused Results - Labs 10/22/16 05:28 10/22/16 05:28 Abnormal Lab Results - Last 24 Hours (Table) 10/21/16 10/21/16 10/21/16 Range/Units 16:48 18:57 20:44 RBC (4.30-5.90) m/uL Hgb (13.0-17.5) gm/dL Hct (39.0-53.0) % MCV (80.0-100.0) fL MCHC (31.0-37.0) g/dL RDW (11.5-15.5) % Lymphocytes # (1.0-4.8) k/uL PT (9.0-12.0) sec Chloride (98-107) mmol/L Carbon Dioxide (22-30) mmol/L BUN (9-20) mg/dL Creatinine (0.66-1.25) mg/dL Glucose (74-99) mg/dL POC Glucose (mg/dL) 135 H 159 H (75-99) mg/dL Calcium (8.4-10.2) mg/dL Alkaline Phosphatase (38-126) U/L CK-MB (CK-2) 6.2 H* (0.0-2.4) ng/mL Troponin I 0.072 H* (0.000-0.034) ng/mL Total Protein (6.3-8.2) g/dL Albumin (3.5-5.0) g/dL 10/22/16 10/22/16 10/22/16 Range/Units 01:26 05:28 05:28 RBC 2.55 L (4.30-5.90) m/uL Hgb 7.8 L (13.0-17.5) gm/dL Hct 25.5 L (39.0-53.0) % MCV 100.1 H (80.0-100.0) fL MCHC 30.6 L (31.0-37.0) g/dL RDW 17.9 H (11.5-15.5) % Lymphocytes # 0.7 L (1.0-4.8) k/uL PT 18.5 H (9.0-12.0) sec Chloride (98-107) mmol/L Carbon Dioxide (22-30) mmol/L BUN (9-20) mg/dL Creatinine (0.66-1.25) mg/dL Glucose (74-99) mg/dL POC Glucose (mg/dL) (75-99) mg/dL Calcium (8.4-10.2) mg/dL Alkaline Phosphatase (38-126) U/L CK-MB (CK-2) 6.2 H* (0.0-2.4) ng/mL Troponin I 0.067 H* (0.000-0.034) ng/mL Total Protein (6.3-8.2) g/dL Albumin (3.5-5.0) g/dL 10/22/16 10/22/16 10/22/16 Range/Units 05:28 05:46 11:54 RBC (4.30-5.90) m/uL Hgb (13.0-17.5) gm/dL Hct (39.0-53.0) % MCV (80.0-100.0) fL MCHC (31.0-37.0) g/dL RDW (11.5-15.5) % Lymphocytes # (1.0-4.8) k/uL PT (9.0-12.0) sec Chloride 97 L (98-107) mmol/L Carbon Dioxide 32 H (22-30) mmol/L BUN 23 H (9-20) mg/dL Creatinine 3.27 H (0.66-1.25) mg/dL Glucose 105 H (74-99) mg/dL POC Glucose (mg/dL) 115 H 131 H (75-99) mg/dL Calcium 7.6 L (8.4-10.2) mg/dL Alkaline Phosphatase 152 H (38-126) U/L CK-MB (CK-2) (0.0-2.4) ng/mL Troponin I (0.000-0.034) ng/mL Total Protein 4.8 L (6.3-8.2) g/dL Albumin 2.5 L (3.5-5.0) g/dL Diabetes panel 10/22/16 Range/Units 05:28 Sodium 138 (137-145) mmol/L Potassium 4.9 (3.5-5.1) mmol/L Chloride 97 L (98-107) mmol/L Carbon Dioxide 32 H (22-30) mmol/L BUN 23 H (9-20) mg/dL Creatinine 3.27 H (0.66-1.25) mg/dL Glucose 105 H (74-99) mg/dL Calcium 7.6 L (8.4-10.2) mg/dL AST 20 (17-59) U/L ALT 28 (21-72) U/L Alkaline Phosphatase 152 H (38-126) U/L Total Protein 4.8 L (6.3-8.2) g/dL Albumin 2.5 L (3.5-5.0) g/dL Calcium panel 10/22/16 Range/Units 05:28 Calcium 7.6 L (8.4-10.2) mg/dL Albumin 2.5 L (3.5-5.0) g/dL Pituitary panel 10/22/16 Range/Units 05:28 Sodium 138 (137-145) mmol/L Potassium 4.9 (3.5-5.1) mmol/L Chloride 97 L (98-107) mmol/L Carbon Dioxide 32 H (22-30) mmol/L BUN 23 H (9-20) mg/dL Creatinine 3.27 H (0.66-1.25) mg/dL Glucose 105 H (74-99) mg/dL Calcium 7.6 L (8.4-10.2) mg/dL Adrenal panel 10/22/16 Range/Units 05:28 Sodium 138 (137-145) mmol/L Potassium 4.9 (3.5-5.1) mmol/L Chloride 97 L (98-107) mmol/L Carbon Dioxide 32 H (22-30) mmol/L BUN 23 H (9-20) mg/dL Creatinine 3.27 H (0.66-1.25) mg/dL Glucose 105 H (74-99) mg/dL Calcium 7.6 L (8.4-10.2) mg/dL Total Bilirubin 0.4 (0.2-1.3) mg/dL AST 20 (17-59) U/L ALT 28 (21-72) U/L Alkaline Phosphatase 152 H (38-126) U/L Total Protein 4.8 L (6.3-8.2) g/dL Albumin 2.5 L (3.5-5.0) g/dL Assessment and Plan (1) Chronic renal failure Narrative/Plan: Will tentatively schedule for PD catheter removal in the next 2 days. Hold Coumadin for now. Status: Acute
--- NOTE | 2016-10-22 16:47 | P.GSCN ---
History of Present Illness History of present illness: 66 old white female, patient is known to me from the past patient had a dry gangrene of the left foot involving the toes and also right foot second toe patient was seen in the last admission when he was in intensive care unit he also has a history of acute chronic renal failure he had this peritoneal dialysis catheter placed which has been infected and scheduled to have a ray removal we placed a right IJ catheter for dialysis Medical history history of cardiovascular hypertensive disease, end-stage renal failure, history of congestive heart failure, history of diabetes mellitus, history of obesity, history of ALLERGY and his leukemia, surgical history patient had a pacemaker placed also patient had a cholecystectomy and a dialysis catheter placed in the past On examination patient was seen in his room his neck is supple chest few crackles the lung bases abdomen soft Patient has a femorals are 1+ bilateral patient has a dry gangrene of the toes and Y involving the right foot and also her left foot at this point the gangrene is dry there is no sign of infection noted we don't have to pulido for any amputation at this point when patient is stable we will consider doing's some toe amputation or BK amputation depending on his circulation at this point to his gangrene is a dry and we will wait till patient is stable for surgical intervention thank you Past Medical History Past Medical History: Atrial Fibrillation, Coronary Artery Disease (CAD), Cancer , Chest Pain / Angina, COPD, CVA/TIA, Diabetes Mellitus, Dialysis, Eye Disorder , Hyperlipidemia, Hypertension, Myocardial Infarction ([place]), Prostate Disorder, Renal Disease, Sleep Apnea/CPAP/BIPAP, Thyroid Disorder Additional Past Medical History / Comment(s): Pt recently admitted to [facility] on with cellulitis bilateral lower extremities, toe cyanosis, mild acute/ chronic CHF. Other HX: IDDM type II-insulin pump, ESRD dialysis-peritoneal , nephrolithiasis, chronic anemia, leukemia-CML, metabolic bone disease, abnormal [place] chromosome, "slight stroke"-no deficits, htn cardiovascular disease, chronic CHF, PAD, current discolored toes, chronic low back pain-nerve damage from injury, SAMANTHA doesn't wear his bipap, diabetic neuropathy bilateral legs and feet, diabetic retinopathy, gout, DDD, diverticulosis, vertigo, RLS, BPH. Last Myocardial Infarction Date:: unknown History of Any Multi-Drug Resistant Organisms: None Reported Past Surgical History: Back Surgery, Cholecystectomy, Heart Catheterization, Orthopedic Surgery Additional Past Surgical History / Comment(s): 10/21/15 Unsuccessful PTCA proximal RCA, laminectomy, L knee surgery (stapled ligaments back to bone), heart cath x3 (no stents), insertion of peritoneal catheter, Removal of benign cyst from neck, colonoscopy. Past Anesthesia/Blood Transfusion Reactions: No Reported Reaction Past Psychological History: No Psychological Hx Reported Additional Psychological History / Comment(s): Pt resides with his spouse. He has a walker. He no longer drives, his spouse can drive. Smoking Status: Current every day smoker Past Alcohol Use History: None Reported Additional Past Alcohol Use History / Comment(s): started smoking age 13, now down to less than 1 PPD Past Drug Use History: None Reported Additional Drug Use History / Comment(s): . - Past Family History Mother Family Medical History: Cancer Additional Family Medical History / Comment(s): Mother of lung cancer at 86 yrs of age. Father Family Medical History: Cancer Additional Family Medical History / Comment(s): Patient has 2 brothers and 2 sisters which patient states are in good health. Medications and Allergies Home Medications Medication Instructions Recorded Confirmed Type Aspirin 81 mg PO DAILY 12/21/15 10/21/16 History Ergocalciferol [Vitamin D2 50,000 unit PO Q14D 12/21/15 10/21/16 History (DRISDOL)] Ranolazine [Ranexa] 500 mg PO BID 12/21/15 10/21/16 History Sevelamer [Renvela] 800 mg PO TID 12/21/15 10/21/16 History Tamsulosin HCl [Flomax] 0.4 mg PO DAILY 12/21/15 10/21/16 History Nitroglycerin Sl Tabs [Nitrostat] 0.4 mg SUBLINGUAL Q5M PRN 02/16/16 10/21/16 History Allopurinol [Zyloprim] 200 mg PO HS 06/14/16 10/21/16 History Pramipexole [Mirapex] 1 mg PO BID 06/14/16 10/21/16 History Rosuvastatin Calcium [Crestor] 5 mg PO DAILY 06/14/16 10/21/16 History Imatinib Mesylate [Gleevec] 200 mg PO BID 08/20/16 10/21/16 History Cinacalcet [Sensipar] 30 mg PO MOWEFR 09/07/16 10/21/16 History Magnesium Oxide [Mag-Ox] 400 mg PO BID 09/07/16 10/21/16 History Acetaminophen Tab [Tylenol] 650 mg PO Q6HR PRN 10/21/16 10/21/16 History Bisacodyl [Dulcolax] 10 mg RECTAL DAILY PRN 10/21/16 10/21/16 History Darbepoetin Richy [Aranesp] 100 mcg SQ DAILY 10/21/16 10/21/16 History Folic Acid-Vit B Complex-Vit C 1 cap PO DAILY 10/21/16 10/21/16 History [Nephrocaps] HYDROcodone/APAP 7.5-325MG [[place] 1 tab PO Q4H PRN 10/21/16 10/21/16 History 7.5-325] INSULIN LISPRO (humaLOG) [humaLOG 0 unit SQ ACHS 10/21/16 10/21/16 History (formulary)] Levothyroxine Sodium [Synthroid] 300 mcg PO MOTUWETHFRSA 10/21/16 10/21/16 History Levothyroxine Sodium [Synthroid] 450 mcg PO LEON 10/21/16 10/21/16 History Magnesium Hydroxide [Milk of 2,400 mg PO BID 10/21/16 10/21/16 History Magnesia] Midodrine HCl [ProAmatine] 10 mg PO AC-TID 10/21/16 10/21/16 History Midodrine [ProAmatine] 10 mg PO TUTHSA 10/21/16 10/21/16 History Na Phos,M-B/Na Phos,Di-Ba [Fleet 133 ml RECTAL DAILY PRN 10/21/16 10/21/16 History Adult] Sulfamethox-Tmp 800-160Mg [Bactrim 1 tab PO Q12HR 10/21/16 10/21/16 History DS 800-160 mg] Warfarin [Coumadin] 2.5 mg PO SUMOTUTHSA 10/21/16 10/21/16 History Warfarin [Coumadin] 5 mg PO WEFR 10/21/16 10/21/16 History Lanthanum Carbonate [Fosrenol] 1,000 mg PO DIRECTED 10/22/16 10/22/16 History Allergies Allergy/AdvReac Type Severity Reaction Status Date / Time No Known Allergies Allergy Verified 10/21/16 11:58 Surgical - Exam Vital Signs Temp Pulse Resp BP Pulse Ox 97.8 F 80 16 102/59 94 L 10/21/16 09:50 10/21/16 09:50 10/21/16 09:50 10/21/16 09:50 10/21/16 09:50 Results - Labs 10/22/16 05:28 10/22/16 05:28 Abnormal Lab Results - Last 24 Hours (Table) 10/21/16 10/21/16 10/21/16 Range/Units 16:48 18:57 20:44 RBC (4.30-5.90) m/uL Hgb (13.0-17.5) gm/dL Hct (39.0-53.0) % MCV (80.0-100.0) fL MCHC (31.0-37.0) g/dL RDW (11.5-15.5) % Lymphocytes # (1.0-4.8) k/uL PT (9.0-12.0) sec Chloride (98-107) mmol/L Carbon Dioxide (22-30) mmol/L BUN (9-20) mg/dL Creatinine (0.66-1.25) mg/dL Glucose (74-99) mg/dL POC Glucose (mg/dL) 135 H 159 H (75-99) mg/dL Calcium (8.4-10.2) mg/dL Alkaline Phosphatase (38-126) U/L CK-MB (CK-2) 6.2 H* (0.0-2.4) ng/mL Troponin I 0.072 H* (0.000-0.034) ng/mL Total Protein (6.3-8.2) g/dL Albumin (3.5-5.0) g/dL 10/22/16 10/22/16 10/22/16 Range/Units 01:26 05:28 05:28 RBC 2.55 L (4.30-5.90) m/uL Hgb 7.8 L (13.0-17.5) gm/dL Hct 25.5 L (39.0-53.0) % MCV 100.1 H (80.0-100.0) fL MCHC 30.6 L (31.0-37.0) g/dL RDW 17.9 H (11.5-15.5) % Lymphocytes # 0.7 L (1.0-4.8) k/uL PT 18.5 H (9.0-12.0) sec Chloride (98-107) mmol/L Carbon Dioxide (22-30) mmol/L BUN (9-20) mg/dL Creatinine (0.66-1.25) mg/dL Glucose (74-99) mg/dL POC Glucose (mg/dL) (75-99) mg/dL Calcium (8.4-10.2) mg/dL Alkaline Phosphatase (38-126) U/L CK-MB (CK-2) 6.2 H* (0.0-2.4) ng/mL Troponin I 0.067 H* (0.000-0.034) ng/mL Total Protein (6.3-8.2) g/dL Albumin (3.5-5.0) g/dL 10/22/16 10/22/16 10/22/16 Range/Units 05:28 05:46 11:54 RBC (4.30-5.90) m/uL Hgb (13.0-17.5) gm/dL Hct (39.0-53.0) % MCV (80.0-100.0) fL MCHC (31.0-37.0) g/dL RDW (11.5-15.5) % Lymphocytes # (1.0-4.8) k/uL PT (9.0-12.0) sec Chloride 97 L (98-107) mmol/L Carbon Dioxide 32 H (22-30) mmol/L BUN 23 H (9-20) mg/dL Creatinine 3.27 H (0.66-1.25) mg/dL Glucose 105 H (74-99) mg/dL POC Glucose (mg/dL) 115 H 131 H (75-99) mg/dL Calcium 7.6 L (8.4-10.2) mg/dL Alkaline Phosphatase 152 H (38-126) U/L CK-MB (CK-2) (0.0-2.4) ng/mL Troponin I (0.000-0.034) ng/mL Total Protein 4.8 L (6.3-8.2) g/dL Albumin 2.5 L (3.5-5.0) g/dL Diabetes panel 10/22/16 Range/Units 05:28 Sodium 138 (137-145) mmol/L Potassium 4.9 (3.5-5.1) mmol/L Chloride 97 L (98-107) mmol/L Carbon Dioxide 32 H (22-30) mmol/L BUN 23 H (9-20) mg/dL Creatinine 3.27 H (0.66-1.25) mg/dL Glucose 105 H (74-99) mg/dL Calcium 7.6 L (8.4-10.2) mg/dL AST 20 (17-59) U/L ALT 28 (21-72) U/L Alkaline Phosphatase 152 H (38-126) U/L Total Protein 4.8 L (6.3-8.2) g/dL Albumin 2.5 L (3.5-5.0) g/dL Calcium panel 10/22/16 Range/Units 05:28 Calcium 7.6 L (8.4-10.2) mg/dL Albumin 2.5 L (3.5-5.0) g/dL Pituitary panel 10/22/16 Range/Units 05:28 Sodium 138 (137-145) mmol/L Potassium 4.9 (3.5-5.1) mmol/L Chloride 97 L (98-107) mmol/L Carbon Dioxide 32 H (22-30) mmol/L BUN 23 H (9-20) mg/dL Creatinine 3.27 H (0.66-1.25) mg/dL Glucose 105 H (74-99) mg/dL Calcium 7.6 L (8.4-10.2) mg/dL Adrenal panel 10/22/16 Range/Units 05:28 Sodium 138 (137-145) mmol/L Potassium 4.9 (3.5-5.1) mmol/L Chloride 97 L (98-107) mmol/L Carbon Dioxide 32 H (22-30) mmol/L BUN 23 H (9-20) mg/dL Creatinine 3.27 H (0.66-1.25) mg/dL Glucose 105 H (74-99) mg/dL Calcium 7.6 L (8.4-10.2) mg/dL Total Bilirubin 0.4 (0.2-1.3) mg/dL AST 20 (17-59) U/L ALT 28 (21-72) U/L Alkaline Phosphatase 152 H (38-126) U/L Total Protein 4.8 L (6.3-8.2) g/dL Albumin 2.5 L (3.5-5.0) g/dL
[2016-10-22 17:00] LABS: Glucose,Whole Blood 104 mg/dL (75-99)
--- NOTE | 2016-10-22 20:03 | CONS ---
DATE OF CONSULTATION: 10/22/2016 REASON FOR CONSULTATION: End-stage renal disease. HISTORY OF PRESENT ILLNESS: Patient is a 66-year-old white male who was admitted to the hospital with complaints of weakness, short of breath, not feeling well. He had his dialysis yesterday and came in with altered mentation as well, along with some shortness of breath and weakness. Patient's x-ray did show evidence of CHF and he was dialyzed last night. He is normally on a Saturday, , Saturday schedule for dialysis. His hemoglobin was noted to be low at 7.8 g/dL, previously he had been as low as 7.1 and did receive packed RBC transfusion recently as outpatient. There are no fever, chills, nausea, vomiting. He is currently awake, comfortable. He denies any major complaints. Patient was recently switched over from peritoneal dialysis to hemodialysis on his last admission. He is currently doing fairly well with hemodialysis and volume status has been much better controlled. PAST MEDICAL HISTORY: Significant for end-stage renal disease, type 2 diabetes, COPD, CVA, TIA, hyperlipidemia, hypertension, obstructive sleep apnea, peripheral vascular disease, diverticulosis, CML, atrial fibrillation, benign prostatic hypertrophy. PAST SURGICAL HISTORY: Back surgery, cholecystectomy, cardiac catheterization, recent orthopedic surgery on the left hip, previous cardiac catheterization, Perm-A-Cath placement, PD catheter placement and removal, status post pacemaker placement, hip surgery on last admission for left intertrochanteric hip fracture. Medications at home: Please see list. ALLERGIES: None. REVIEW OF SYSTEMS: As per HPI. Other systems negative. On examination, the patient is comfortable, awake, alert, oriented x3, not in any acute distress. Blood pressure 112/60, heart rate 56 per minute. He is afebrile. Examination of the heart S1 and S2. Examination of the lungs: Bilateral breath sounds are heard. The abdomen is soft, obese, nontender. Examination of lower extremities shows no significant edema. Chronic skin changes are noted. Labs show sodium 138, potassium 4.9, hemoglobin 7.8 g/dL. ASSESSMENT: 1. End-stage renal disease on hemodialysis on a Saturday, , Saturday schedule via IJ Perm-A-Cath. We will plan for hemodialysis tomorrow. Patient was dialyzed yesterday. 2. Fluid overload. Status post dialysis yesterday. Currently significantly improved. 3. Anemia with no active bleeding noted, maintained on Procrit as outpatient, status post packed RBC transfusion as outpatient sometime last week. We will arrange for a unit of packed RBCs to be transfused with hemodialysis tomorrow. 4. Chronic kidney bone mineral disorder. 5. Recent surgery on the left hip with cellulitis and drain at the site of the surgery. PLAN: Hemodialysis in a.m. Transfuse 1 unit packed RBCs with dialysis tomorrow. Increase UF as tolerated.
[2016-10-22] MEDS: ALLOPURINOL 100 MG TAB PO SCH (20:36)
[2016-10-22] MEDS: PREGABALIN 50 MG CAP PO SCH (20:38)
[2016-10-22] MEDS: SULFAMETHOX-TMP 400-80MG 1 EACH TAB PO SCH (20:39)
[2016-10-22 21:00] LABS: Hemoglobin A1C 5.3 % (4.2-6.1)
[2016-10-22 21:09] LABS: Glucose,Whole Blood 115 mg/dL (75-99)
[2016-10-23] MEDS: INSULIN LISPRO (humaLOG) 300 UNIT/3 ML VIAL SQ SCH ×5 (00:10→22:11)
[2016-10-23] MEDS: HYDROcodone/APAP 7.5-325MG 1 EACH TAB PO PRN ×3 (00:15→12:58)
[2016-10-23 01:17] LABS: Glucose,Whole Blood 123 mg/dL (75-99)
[2016-10-23 05:34] LABS: Glucose,Whole Blood 120 mg/dL (75-99)
[2016-10-23] MEDS: LEVOTHYROXINE 100 MCG TAB PO SCH (07:08)
[2016-10-23] MEDS: MIDODRINE 5 MG TAB PO SCH ×3 (07:09→18:41)
[2016-10-23] MEDS: SEVELAMER 800 MG TAB PO SCH ×3 (07:11→18:42)
[2016-10-23] MEDS: PANTOPRAZOLE 40 MG TABLET PO SCH (07:11)
[2016-10-23 07:22] LABS: Anisocytosis Slight; CH 30.3; CHCM 30.3; HCT 25.5 % (39.0-53.0); HDW 3.06; HGB 7.7 gm/dL (13.0-17.5); Hypochromasia Marked; MCH 30.5 pg (25.0-35.0); MCHC 30.2 g/dL (31.0-37.0); Macrocytosis Moderate; Mean Platelet Volume 8.5; RBC 2.53 m/uL (4.30-5.90); RDW 18.5 % (11.5-15.5); WBC 9.5 k/uL (3.8-10.6)
[2016-10-23 07:50] LABS: Calcium 7.7 mg/dL (8.4-10.2); Potassium 4.5 mmol/L (3.5-5.1)
[2016-10-23 07:55] LABS: INR 1.8 (<1.1); Prothrombin Time 17.1 sec (9.0-12.0)
[2016-10-23] MEDS: IPRATROPIUM-ALBUTEROL 3 ML NEB INHALATION SCH ×4 (08:48→20:24)
[2016-10-23] MEDS: SYMBICORT 160-4.5 MCG INHALER INHALATION SCH ×2 (08:48→20:24)
[2016-10-23] MEDS: DARBEPOETIN ALFA 100MCG/0.5ML SYRINGE SQ SCH (09:00)
[2016-10-23] MEDS: ATORVASTATIN 10 MG TAB PO SCH (10:24)
[2016-10-23] MEDS: FOLIC ACID-VIT B COMPLEX-VIT C 1 CAP PO SCH (10:25)
[2016-10-23] MEDS: FUROSEMIDE 80 MG TAB PO SCH ×2 (10:25→18:41)
[2016-10-23] MEDS: ISOSORBIDE MONONITRATE ER 15 MG TAB PO SCH (10:25)
[2016-10-23] MEDS: LISINOPRIL 2.5 MG TAB PO SCH (10:25)
[2016-10-23] MEDS: MAGNESIUM HYDROXIDE 2,400 MG/10 ML CUP PO SCH ×2 (10:26→22:15)
[2016-10-23] MEDS: METOPROLOL TARTRATE 12.5 MG TAB PO SCH (10:27)
[2016-10-23] MEDS: MAGNESIUM OXIDE 400 MG TAB PO SCH ×2 (10:27→22:15)
[2016-10-23] MEDS: PRAMIPEXOLE 1 MG TAB PO SCH ×2 (10:28→22:15)
[2016-10-23] MEDS: RANOLAZINE 500 MG TAB.ER.12H PO SCH ×2 (10:29→22:15)
[2016-10-23] MEDS: TAMSULOSIN 0.4 MG CAP.ER.24H PO SCH (10:29)
[2016-10-23] MEDS: SULFAMETHOX-TMP 400-80MG 1 EACH TAB PO SCH ×2 (10:29→22:15)
[2016-10-23 10:41] LABS: Glucose,Whole Blood 98 mg/dL (75-99)
--- NOTE | 2016-10-23 11:11 | XR ---
EXAMINATION TYPE: XR chest 2V DATE OF EXAM: 10/23/2016 11:00 AM COMPARISON: 10/21/2016 HISTORY: 66-year-old male CHF TECHNIQUE: Frontal and lateral views FINDINGS: Heart remains enlarged. Atherosclerotic arch calcifications. Diffuse interstitial opacities persist, stable to minimally improved. Trace effusions also stable to minimally improved. Right-sided double-l umen hemodialysis catheter with tips in the SVC. Left anterior chest wall pacemaker generator with ri ght atrial and right ventricular leads. IMPRESSION: CHF with pulmonary vascular congestion/interstitial edema, stable to minimally improved. Trace effusi ons.
[2016-10-23] MEDS: ASPIRIN 81 MG CHEW PO SCH (11:22)
[2016-10-23 12:12] LABS: Glucose,Whole Blood 102 mg/dL (75-99)
[2016-10-23] MEDS: COLLAGENASE 250 UNIT/GM OINTMENT 30 GM TUBE TOPICAL SCH (12:45)
[2016-10-23] MEDS: GLEEVEC 100 MG PO SCH ×2 (12:53→22:13)
[2016-10-23] MEDS ORDERED: MIDODRINE 5 MG TAB PO SCH (13:05)
[2016-10-23] MEDS: DEXTROSE 5% IN WATER 1,000 ML IV SCH (13:22)
--- NOTE | 2016-10-23 13:54 | P.PN ---
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 under the care of hematology oncology, was recently hospitalized at [facility] for a prolonged period of time after he fell at dialysis ended up with left intertrochanteric hip fracture subsequently was found to have a third-degree of blood for which she was placed on transvenous pacemaker subsequent he was switched to a permanent pacemaker because of that, his hospital stay was complicated by acute respiratory failure , severe medical debility, pneumonia, he ended up getting transferred to [facility] for physical therapy rehabitation patient has been doing fine up until recently when he developed to have a significant pain and the gangrenous changes in the bilateral total secondary to severe PAD and has been under the care of Dr. Farrell and he was supposed to follow-up with him as an outpatient. Yesterday in the morning patient became quite unresponsive his blood glucose dropped to 67 and the patient became quite unresponsive he was transferred to the emergency department at [facility] and computed tomography scan the brain did not show any evidence of acute infarct or bleed a chest x-ray showed congestive heart failure even though the patient didn't receive dialysis 4 times last week, and the patient was having severe gangrenous changes and his left foot for which we contacted Dr. Farrell for possible amputation while his in the hospital. 10/22: Repeat BUN 23 and creatinine 3.27. INR 1.9, alkaline phosphatase 152. Hemoglobin 7.8. Complete blood glucose running between 115 and 159. Consult pending for Dr. Farrell and nephrology are following. Consult with Dr. Winters as patient is scheduled for CAPD removal on Saturday. 10/23: Patient has been seen by Dr. Winters and plan is to schedule PD catheter removal in the next 2 days. Coumadin will be placed on hold. Dr. Farrell has evaluated the patient with no immediate plan for surgical intervention and will wait until patient is stable. Patient has been scheduled for hemodialysis this morning and 1 unit packed RBCs with dialysis by Dr. Manuel. Repeat hemoglobin 7.7, BUN 18 and creatinine 2.91. Patient is complaining of pain in legs from ischemia. Fentanyl patch added. Objective - Vital Signs Vital signs: Vital Signs Temp 97.3 F L 10/23/16 07:56 Pulse 84 10/23/16 08:57 Resp 17 10/23/16 07:56 BP 120/54 10/23/16 07:56 Pulse Ox 94 L 10/23/16 07:56 Intake & Output 10/22/16 10/23/16 10/23/16 18:59 06:59 18:59 Intake Total 480 Output Total 0 1 Balance 480 -1 Weight 110.5 kg 104.5 kg Intake: Oral 480 Output: Urine 0 Stool 1 - Exam General appearance: average body habitus, mild distress - EENT Eyes: anicteric sclerae, EOMI, PERRLA, no ptosis, no scleral icterus, normal appearance ENT: hard of hearing, normal oropharynx, no thrush Ears: bilateral: normal - Neck Neck: no lymphadenopathy, normal ROM, no rigidity, no stridor, no thyromegaly Carotids: bilateral: upstroke delayed Thyroid: bilateral: normal size - Respiratory Respiratory: bilateral: diminished, negative: dullness, rales, rhonchi, wheezing , prolonged expiration - Cardiovascular Rhythm: irregularly irregular Heart sounds: normal: S1, S2 Abnormal Heart Sounds: systolic murmur, no rub (Permanent pacemaker ), no click - Gastrointestinal General gastrointestinal: normal bowel sounds, soft, no splenomegaly, no tenderness, no umbilical hernia, no ventral hernia - Integumentary Integumentary: normal, normal turgor, ulcer (Left heel and the right heel with gangrenous changes especially in the left foot more than the right toes.) - Neurologic Neurologic: CNII-XII intact - Musculoskeletal Musculoskeletal: generalized weakness, strength equal bilaterally - Psychiatric Psychiatric: A&O x's 3, appropriate affect, intact judgment & insight - Labs CBC & Chem 7: 10/23/16 06:42 10/23/16 06:42 Labs: Abnormal Lab Results - Last 24 Hours (Table) 10/22/16 10/22/16 10/22/16 Range/Units 11:54 16:57 21:00 RBC (4.30-5.90) m/uL Hgb (13.0-17.5) gm/dL Hct (39.0-53.0) % MCV (80.0-100.0) fL MCHC (31.0-37.0) g/dL RDW (11.5-15.5) % PT (9.0-12.0) sec Carbon Dioxide (22-30) mmol/L Creatinine (0.66-1.25) mg/dL Glucose (74-99) mg/dL POC Glucose (mg/dL) 131 H 104 H 115 H (75-99) mg/dL Calcium (8.4-10.2) mg/dL 10/23/16 10/23/16 10/23/16 Range/Units 01:15 05:32 06:42 RBC 2.53 L (4.30-5.90) m/uL Hgb 7.7 L (13.0-17.5) gm/dL Hct 25.5 L (39.0-53.0) % MCV 101.0 H (80.0-100.0) fL MCHC 30.2 L (31.0-37.0) g/dL RDW 18.5 H (11.5-15.5) % PT (9.0-12.0) sec Carbon Dioxide (22-30) mmol/L Creatinine (0.66-1.25) mg/dL Glucose (74-99) mg/dL POC Glucose (mg/dL) 123 H 120 H (75-99) mg/dL Calcium (8.4-10.2) mg/dL 10/23/16 10/23/16 Range/Units 06:42 06:42 RBC (4.30-5.90) m/uL Hgb (13.0-17.5) gm/dL Hct (39.0-53.0) % MCV (80.0-100.0) fL MCHC (31.0-37.0) g/dL RDW (11.5-15.5) % PT 17.1 H (9.0-12.0) sec Carbon Dioxide 31 H (22-30) mmol/L Creatinine 2.91 H (0.66-1.25) mg/dL Glucose 102 H (74-99) mg/dL POC Glucose (mg/dL) (75-99) mg/dL Calcium 7.7 L (8.4-10.2) mg/dL Assessment and Plan Plan: 1. Metabolic encephalopathy and hypoglycemia, has recovered very well since he was seen in the emergency department. 2. Acute diastolic heart failure. Patient will be going for another session of dialysis. Meanwhile continue Lasix 80 mg orally twice every day, lisinopril 2.5 mg orally once every day, metoprolol 12.5 mg orally once every day. 3. Atherosclerotic cardiovascular disease. Continue Imdur 15 mg orally once every day, metoprolol 12.5 mg orally once every day, Lipitor 20 mg orally once every day, aspirin 81 mg orally once every day, Plavix 75 mg orally once every day. 4. Severe PAD with dry gangrenous changes to the left foot and the right toes consult general surgery for possible amputation which will be done at a later time once patient is stable. Fentanyl patch. 5. Chronic diastolic heart failure with mild exacerbation. Continue patient on peritoneal dialysis.IV diuretics Lasix 80 mg every 12 hours. 6. Diabetes mellitus type 2. Hold off his Lantus as well as his Humalog because of hyperglycemia. Restart tomorrow morning 7. hypothyroidism continue levothyroxine to 300 g orally daily. 8. hyperlipidemia. We'll continue Lipitor 10 mg orally once every day. 9.End-stage renal disease . Continue patient on hemodialysis through permanent catheter, patient will have his PD catheter removed by Dr. reis supposedly on Saturday. Continue Sensipar 30 mg and Saturday, continue Renvela 800 mg orally 3 times every day, continue Aranesp 100 g once every week. Consult for Dr. Winters for CAPD removal 10. Hypertension and hypertensive cardiovascular disease. Continue lisinopril 2.5 mg orally once every day, metoprolol 12.5 mg orally once every day. 11. Restless leg syndrome. Continue Mirapex 1 mg orally twice every day. 12. Gout. Stable. 13. Paroxysmal atrial fibrillation. Continue Coumadin keep his INR between 2- 3. 14. 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 15. CML. Stable. 16. BPH. Continue with Flomax 0.4 mg orally once every day. 17.Peripheral neuropathy . Continue Lyrica 50 mg orally bedtime. 18. Status post left IT fracture with IM nail with an infected wound currently on Bactrim double strength twice every day. 19. DVT prophylaxis. Continue Coumadin for now. 20. GI prophylaxis. Continue Protonix 40 mg orally once every day. 21. Patient would want CPR but he does not want intubation. 22. Overall prognosis is guarded. Discharge plan: Return to [facility] Impression and plan of care have been directed as dictated by the signing physician. Lacey Peck nurse practitioner acting as scribe for signing physician. Time with Patient: Greater than 30
[2016-10-23] MEDS ORDERED: IV FLUID CONTINUATION 1,000 ML IV ONE (16:22)
[2016-10-23] MEDS ORDERED: MIDAZOLAM 2 MG/2 ML VIAL ONE (16:50)
[2016-10-23] MEDS ORDERED: fentaNYL (PF) 50 MCG/ML 2 ML AMP ONE (16:50)
[2016-10-23] MEDS ORDERED: SODIUM CHLORIDE 0.9% 500 ML IV ONE (16:50)
[2016-10-23] MEDS ORDERED: PROPOFOL 10 MG/ML 20 ML VIAL IV ONE (16:50)
[2016-10-23 16:54] LABS: Glucose,Whole Blood 102 mg/dL (75-99)
[2016-10-23] MEDS ORDERED: LIDOCAINE 1%-EPI 1:100,000 20 ML VIAL SQ ONE (17:01)
--- NOTE | 2016-10-23 17:55 | P.PCN ---
Date of Procedure: 10/23/16 Procedure(s) Performed: PREOPERATIVE DIAGNOSIS: Renal failure POSTOPERATIVE DIAGNOSIS: Same PROCEDURE: PD cath removal SURGEON: Vianey EBL: 2 mL ANESTHESIA: Sedation and local COMPLICATIONS: None OPERATIVE PROCEDURE: Patient was placed in the supine position. The abdomen was prepped and draped in usual sterile fashion. The previous paramedian incision was re-incised after localizing the skin. The subcutaneous tissues were divided using electrocautery. Blunt dissection around the cuff that was present at the fascia and peritoneum took place. The cuff was fully mobilized. The catheter was removed from the perineal cavity. The outer cuff was dissected from the saphenous fascia using electrocautery. The catheter was cut on the other side of that cuff and the catheter was removed. The fascial defect was closed using a single [id number] 0 Vicryl stitch. The subcutaneous tissues were closed using 3-0 Vicryl sutures and the skin using 4- 0 Monocryl sutures. Steri-Strips and sterile dressings were applied. DISPOSITION: Stable to recovery room
[2016-10-23 18:06] LABS: Glucose,Whole Blood 100 mg/dL (75-99)
--- NOTE | 2016-10-23 20:00 | PN ---
Patient is seen for followup for end-stage renal disease. He was admitted to the hospital with fluid overload and some degree of encephalopathy. This has all improved. Patient is scheduled for removal of PD catheter today. He is currently comfortable, doing much better on hemodialysis. He denies any significant complaints. On examination, blood pressure is 119/56, heart rate 98 per minute. He is afebrile. EXAMINATION OF THE HEART: S1 and S2. EXAMINATION OF THE LUNGS: Bilateral breath sounds are heard. ABDOMEN: Soft, obese, nontender. Examination of lower extremities shows chronic skin changes. No significant edema is noted. There is blackish discoloration of the toes on both feet, left worse than the right. [employer] exam shows patient is moving all 4 extremities. Labs show hemoglobin 7.7; sodium 140, potassium 4.5. ASSESSMENT: 1. End-stage renal disease, on hemodialysis normally on a Saturday, , Saturday schedule. Patient will be dialyzed today; however, if it is too late after he returns from the PD catheter placement, we will dialyze him tomorrow. A unit of packed RBCs will be given with dialysis as well. 2. Hypotension, currently improved. 3. Chronic kidney disease bone mineral disorder. Continue with the PhosLo and the Renvela. Discontinue the Fleet enema. 4. Hypothyroidism. PLAN: Hemodialysis today; however, if it is late, we will dialyze him tomorrow morning. He was just dialyzed yesterday. Normally patient is on a Saturday, , Saturday schedule as outpatient. Transfuse a unit of packed RBCs with dialysis. Patient's is concerned regarding his pain medications. She feels he may benefit from a lower dose of [place].
[2016-10-23 20:56] LABS: Glucose,Whole Blood 130 mg/dL (75-99)
[2016-10-23] MEDS: ALLOPURINOL 100 MG TAB PO SCH (22:15)
[2016-10-23] MEDS: PREGABALIN 50 MG CAP PO SCH (22:15)
[2016-10-24] MEDS: FOSRENOL PO SCH ×3 (00:33→04:26)
[2016-10-24 06:11] LABS: Glucose,Whole Blood 104 mg/dL (75-99)
[2016-10-24] MEDS: INSULIN LISPRO (humaLOG) 300 UNIT/3 ML VIAL SQ SCH ×2 (06:25→12:31)
[2016-10-24] MEDS: SEVELAMER 800 MG TAB PO SCH (06:26)
[2016-10-24] MEDS: LEVOTHYROXINE 100 MCG TAB PO SCH (06:26)
[2016-10-24] MEDS: MIDODRINE 5 MG TAB PO SCH ×2 (06:27→10:57)
[2016-10-24] MEDS: PANTOPRAZOLE 40 MG TABLET PO SCH (06:27)
[2016-10-24] MEDS: HYDROcodone/APAP 5-325MG 1 EACH TAB PO PRN ×2 (06:36→13:12)
[2016-10-24 07:02] LABS: Anisocytosis Slight; CH 29.8; CHCM 29.7; HCT 24.2 % (39.0-53.0); HDW 2.97; HGB 7.3 gm/dL (13.0-17.5); Hypochromasia Marked; MCH 30.6 pg (25.0-35.0); MCHC 30.2 g/dL (31.0-37.0); MCV 101.2 fL (80.0-100.0); Macrocytosis Moderate; Mean Platelet Volume 7.8; Prothrombin Time 19.7 sec (9.0-12.0); RBC 2.39 m/uL (4.30-5.90); RDW 17.9 % (11.5-15.5); WBC 9.2 k/uL (3.8-10.6)
[2016-10-24 07:32] LABS: Calcium 7.7 mg/dL (8.4-10.2); Potassium 4.9 mmol/L (3.5-5.1)
[2016-10-24] MEDS: IPRATROPIUM-ALBUTEROL 3 ML NEB INHALATION SCH ×4 (08:11→19:43)
[2016-10-24] MEDS: SYMBICORT 160-4.5 MCG INHALER INHALATION SCH ×2 (08:11→19:45)
[2016-10-24] MEDS ORDERED: DARBEPOETIN ALFA 100MCG/0.5ML SYRINGE SQ SCH (09:00)
[2016-10-24] MEDS: ASPIRIN 81 MG CHEW PO SCH (09:12)
[2016-10-24] MEDS: FUROSEMIDE 80 MG TAB PO SCH (09:15)
[2016-10-24] MEDS: ATORVASTATIN 10 MG TAB PO SCH (09:15)
[2016-10-24] MEDS: FOLIC ACID-VIT B COMPLEX-VIT C 1 CAP PO SCH (09:15)
[2016-10-24] MEDS: GLEEVEC 100 MG PO SCH (09:15)
[2016-10-24] MEDS: ISOSORBIDE MONONITRATE ER 15 MG TAB PO SCH (09:16)
[2016-10-24] MEDS: MAGNESIUM HYDROXIDE 2,400 MG/10 ML CUP PO SCH (09:16)
[2016-10-24] MEDS: LISINOPRIL 2.5 MG TAB PO SCH (09:16)
[2016-10-24] MEDS: METOPROLOL TARTRATE 12.5 MG TAB PO SCH (09:17)
[2016-10-24] MEDS: MAGNESIUM OXIDE 400 MG TAB PO SCH (09:17)
[2016-10-24] MEDS: RANOLAZINE 500 MG TAB.ER.12H PO SCH (09:17)
[2016-10-24] MEDS: SULFAMETHOX-TMP 400-80MG 1 EACH TAB PO SCH (09:17)
[2016-10-24] MEDS: PRAMIPEXOLE 1 MG TAB PO SCH (09:17)
[2016-10-24] MEDS: TAMSULOSIN 0.4 MG CAP.ER.24H PO SCH (09:18)
[2016-10-24] MEDS: COLLAGENASE 250 UNIT/GM OINTMENT 30 GM TUBE TOPICAL SCH (11:34)
[2016-10-24 12:05] LABS: Glucose,Whole Blood 101 mg/dL (75-99)
--- NOTE | 2016-10-24 12:23 | P.PN ---
Subjective Principal diagnosis: Renal failure Patient doing well today. Denies abdominal pain. Tolerating diet. Objective - Vital Signs Vital signs: Vital Signs Temp 96.2 F L 10/24/16 11:15 Pulse 80 10/24/16 11:15 Resp 18 10/24/16 11:15 BP 105/53 10/24/16 11:15 Pulse Ox 96 10/24/16 11:15 Intake & Output 10/23/16 10/24/16 10/24/16 18:59 06:59 18:59 Intake Total 400 240 200 Output Total 5 4 Balance 395 236 200 Weight 107 kg Intake: IV 100 Intake, IV Titration 200 Amount Dextrose 5% in Water 1, 200 000 ml @ 20 mls/hr IV . Q24H [facility] Rx#:[id number] Oral 100 240 200 Output: Urine 0 Stool 4 Estimated Blood Loss 5 Other: # Voids 1 # Bowel Movements 1 - Exam Abdomen: Soft, nondistended, mild tenderness incision site, dressings intact - Labs CBC & Chem 7: 10/24/16 06:40 10/24/16 06:40 Labs: Abnormal Lab Results - Last 24 Hours (Table) 10/23/16 10/23/16 10/23/16 Range/Units 16:42 18:05 20:54 RBC (4.30-5.90) m/uL Hgb (13.0-17.5) gm/dL Hct (39.0-53.0) % MCV (80.0-100.0) fL MCHC (31.0-37.0) g/dL RDW (11.5-15.5) % PT (9.0-12.0) sec BUN (9-20) mg/dL Creatinine (0.66-1.25) mg/dL POC Glucose (mg/dL) 102 H 100 H 130 H (75-99) mg/dL Calcium (8.4-10.2) mg/dL 10/24/16 10/24/16 10/24/16 Range/Units 06:09 06:40 06:40 RBC 2.39 L (4.30-5.90) m/uL Hgb 7.3 L (13.0-17.5) gm/dL Hct 24.2 L (39.0-53.0) % MCV 101.2 H (80.0-100.0) fL MCHC 30.2 L (31.0-37.0) g/dL RDW 17.9 H (11.5-15.5) % PT (9.0-12.0) sec BUN 29 H (9-20) mg/dL Creatinine 4.12 H (0.66-1.25) mg/dL POC Glucose (mg/dL) 104 H (75-99) mg/dL Calcium 7.7 L (8.4-10.2) mg/dL 10/24/16 10/24/16 Range/Units 06:40 12:02 RBC (4.30-5.90) m/uL Hgb (13.0-17.5) gm/dL Hct (39.0-53.0) % MCV (80.0-100.0) fL MCHC (31.0-37.0) g/dL RDW (11.5-15.5) % PT 19.7 H (9.0-12.0) sec BUN (9-20) mg/dL Creatinine (0.66-1.25) mg/dL POC Glucose (mg/dL) 101 H (75-99) mg/dL Calcium (8.4-10.2) mg/dL Microbiology - Last 24 Hours (Table) 10/22/16 23:59 Gram Stain - Preliminary Hip - Left Wound Culture - Preliminary Gram Neg Bacilli 10/22/16 23:59 Anaerobic Culture - Preliminary Hip - Left Assessment and Plan (1) Chronic renal failure Narrative/Plan: Continue hemodialysis. Remove dressing tomorrow. I will be leaving town today. We'll sign off at this point. Please contact my coverage if issues arise. Status: Acute
[2016-10-24] MEDS ORDERED: HEPARIN SODIUM,PORCINE 5,000 UNIT/ML 1 ML VIAL ONE (14:00)
[2016-10-24] MEDS: DEXTROSE 5% IN WATER 1,000 ML IV SCH (14:28)
--- NOTE | 2016-10-24 14:45 | PN ---
Patient is seen for followup for end-stage renal disease. He is currently lying in bed. He is sleeping but easily arousable. Patient had his PD catheter removed yesterday. On examination, blood pressure is 105/53, heart rate 80 per minute, he is afebrile. Examination of the heart, S1 and S2. Examination of the lungs, decreased breath sounds in the bases. Abdomen is soft, nontender. Examination of the lower extremities shows chronic skin changes. There are gangrenous changes noted on the toes on bilateral feet. Labs show sodium 139, potassium 4.9, hemoglobin at 7.3 g/dL. ASSESSMENT: 1. End-stage renal disease on hemodialysis on a Saturday, , Saturday schedule. Will arrange for hemodialysis today. 2. Anemia, transfused 1 unit packed RBCs with hemodialysis today. 3. Altered mentation, currently improved. 4. Fluid overload on initial admission, currently improved. PLAN: Hemodialysis today with increased UF as tolerated and transfused 1 unit packed RBCs with hemodialysis today. Patient is stable for discharge post dialysis.
--- NOTE | 2016-10-24 15:17 | P.DS ---
Providers Date of admission: 10/21/16 12:47 Expected date of discharge: 10/24/16 Attending physician: Peggy Erickson Consults: 10/21/16 13:12 Consult Physician Routine Consulting Provider: Rosibel Manuel Consult Reason/Comments: ESRD on dialysis, volume overload Do you want consulting provider notified?: Yes 10/21/16 14:17 Consult Physician Routine Consulting Provider: Paco Farrell Consult Reason/Comments: gangrenous left foot Do you want consulting provider notified?: Yes 10/22/16 10:54 Consult Physician Routine Consulting Provider: Constantine Winters Consult Reason/Comments: Peritoneal dialysis catheter removal Do you want consulting provider notified?: Yes Primary care physician: Peggy Erickson Hospital Course: This is a 65-year-old gentleman one of Dr Erickson patients, with history significant for hypertension and hypertensive cardiovascular disease, hyperlipidemia, end-stage renal disease on CAPD,chronic diastolic CHF diabetes mellitus type 2 currently on insulin pump, hypothyroidism, obesity with obstructive sleep apnea currently on a CPAP, 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 for physical therapy rehabitation patient has been doing fine up until recently when he developed to have a significant pain and the gangrenous changes in the bilateral total secondary to severe PAD and has been under the care of Dr. Farrell and he was supposed to follow-up with him as an outpatient. Yesterday in the morning patient became quite unresponsive his blood glucose dropped to 67 and the patient became quite unresponsive he was transferred to the emergency department at [facility] and computed tomography scan the brain did not show any evidence of acute infarct or bleed a chest x-ray showed congestive heart failure even though the patient didn't receive dialysis 4 times last week, and the patient was having severe gangrenous changes and his left foot for which we contacted Dr. Farrell for possible amputation while his in the hospital. 10/22: Repeat BUN 23 and creatinine 3.27. INR 1.9, alkaline phosphatase 152. Hemoglobin 7.8. Complete blood glucose running between 115 and 159. Consult pending for Dr. Farrell and nephrology are following. Consult with Dr. Winters as patient is scheduled for CAPD removal on Saturday. 10/23: Patient has been seen by Dr. Winters and plan is to schedule PD catheter removal in the next 2 days. Coumadin will be placed on hold. Dr. Farrell has evaluated the patient with no immediate plan for surgical intervention and will wait until patient is stable. Patient has been scheduled for hemodialysis this morning and 1 unit packed RBCs with dialysis by Dr. Manuel. Repeat hemoglobin 7.7, BUN 18 and creatinine 2.91. Patient is complaining of pain in legs from ischemia. Fentanyl patch added. 10/24: Dr. Winters removed CAPD catheter yesterday afternoon. Patient did not have any postop complications. Hgb 7.3, BUN 29, Creatinine 4.12. Patient is undergoing hemodialysis today. He states he is eating okay. He denies any diarrhea. Patient will be transferred back to [facility] today in stable condition. Discharge Diagnoses: 1. Metabolic encephalopathy and hypoglycemia 2. Acute diastolic heart failure. 3. Atherosclerotic cardiovascular disease. 4. Severe PAD with dry gangrenous changes to the left foot and the right toes 5. Chronic diastolic heart failure with mild exacerbation. 6. Diabetes mellitus type 2. 7. hypothyroidism 8. hyperlipidemia. 9. End-stage renal disease 10. Hypertension and hypertensive cardiovascular disease. 11. Restless leg syndrome. 12. Gout unspecified 13. Paroxysmal atrial fibrillation. 14. 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 15. CML. Stable. 16. BPH. 17.Peripheral neuropathy 18. Status post left IT fracture with IM nail with an infected wound currently on Bactrim double strength twice every day. Discharge plan: Return to [facility] Impression and plan of care have been directed as dictated by the signing physician. Lacey Peck nurse practitioner acting as scribe for signing physician. Patient Condition at Discharge: Good Plan - Discharge Summary New Discharge Prescriptions: HYDROcodone/APAP 7.5-325MG [[place] 7.5-325] 1 tab PO Q4H PRN #100 tab PRN Reason: Pain Pregabalin [Lyrica] 50 mg PO HS #30 cap fentaNYL 12MCG/HR PATCH [Duragesic 12MCG/HR] 1 patch TRANSDERM Q72H #10 patch Discharge Medication List Aspirin 81 mg PO DAILY 12/21/15 [History] Ergocalciferol [Vitamin D2 (DRISDOL)] 50,000 unit PO Q14D 12/21/15 [History] Ranolazine [Ranexa] 500 mg PO BID 12/21/15 [History] Sevelamer [Renvela] 800 mg PO TID 12/21/15 [History] Tamsulosin HCl [Flomax] 0.4 mg PO DAILY 12/21/15 [History] Nitroglycerin Sl Tabs [Nitrostat] 0.4 mg SUBLINGUAL Q5M PRN 02/16/16 [History] Allopurinol [Zyloprim] 200 mg PO HS 06/14/16 [History] Pramipexole [Mirapex] 1 mg PO BID 06/14/16 [History] Rosuvastatin Calcium [Crestor] 5 mg PO DAILY 06/14/16 [History] Imatinib Mesylate [Gleevec] 200 mg PO BID 08/20/16 [History] Cinacalcet [Sensipar] 30 mg PO MOWEFR 09/07/16 [History] Magnesium Oxide [Mag-Ox] 400 mg PO BID 09/07/16 [History] Budesonide-Formot 160-4.5 Mcg [Symbicort 160-4.5 Mcg Inhaler] 2 puff INHALATION RT-BID puff 10/01/16 [Rx] Furosemide [Lasix] 80 mg PO BID@0900,1600 tab 10/01/16 [Rx] INSULIN LISPRO (humaLOG) [humaLOG (formulary)] 5 unit SQ AC-TID vial 10/01/16 [ Rx] Ipratropium-Albuterol Nebulize [Duoneb 0.5 mg-3 mg/3 ml Soln] 3 ml INHALATION RT -QID ampul.neb 10/01/16 [Rx] Isosorbide Mononitrate ER [Imdur] 15 mg PO DAILY #30 dose 10/01/16 [Rx] Lactulose [Cephulac] 30 gm PO TID PRN #0 ml 10/01/16 [Rx] Lisinopril [Zestril] 2.5 mg PO DAILY #30 tablet 10/01/16 [Rx] Metoprolol Tartrate 12.5 mg PO DAILY #30 tab 10/01/16 [Rx] Pantoprazole [Protonix] 40 mg PO AC-BRKFST tablet. 10/01/16 [Rx] Acetaminophen Tab [Tylenol] 650 mg PO Q6HR PRN 10/21/16 [History] Bisacodyl [Dulcolax] 10 mg RECTAL DAILY PRN 10/21/16 [History] Darbepoetin Richy [Aranesp] 100 mcg SQ Q7D 10/21/16 [History] Folic Acid-Vit B Complex-Vit C [Nephrocaps] 1 cap PO DAILY 10/21/16 [History] INSULIN LISPRO (humaLOG) [humaLOG (formulary)] 0 unit SQ ACHS 10/21/16 [History] Levothyroxine Sodium [Synthroid] 300 mcg PO MOTUWETHFRSA 10/21/16 [History] Levothyroxine Sodium [Synthroid] 450 mcg PO LEON 10/21/16 [History] Magnesium Hydroxide [Milk of Magnesia] 2,400 mg PO BID 10/21/16 [History] Midodrine HCl [ProAmatine] 10 mg PO AC-TID 10/21/16 [History] Midodrine [ProAmatine] 10 mg PO TUTHSA 10/21/16 [History] Na Phos,M-B/Na Phos,Di-Ba [Fleet Adult] 133 ml RECTAL DAILY PRN 10/21/16 [ History] Sulfamethox-Tmp 800-160Mg [Bactrim DS 800-160 mg] 1 tab PO Q12HR 10/21/16 [ History] Warfarin [Coumadin] 2.5 mg PO SUMOTUTHSA 10/21/16 [History] Warfarin [Coumadin] 5 mg PO WEFR 10/21/16 [History] Lanthanum Carbonate [Fosrenol] 1,000 mg PO DIRECTED 10/22/16 [History] HYDROcodone/APAP 7.5-325MG [[place] 7.5-325] 1 tab PO Q4H PRN #100 tab 10/24/16 [ Rx] Pregabalin [Lyrica] 50 mg PO HS #30 cap 10/24/16 [Rx] fentaNYL 12MCG/HR PATCH [Duragesic 12MCG/HR] 1 patch TRANSDERM Q72H #10 patch [Rx] Follow up Appointment(s)/Referral(s): Peggy Erickson MD [Primary Care Provider] - 1 Week ([address] [facility] )
[2016-10-24 16:53] LABS: Glucose,Whole Blood 100 mg/dL (75-99)
[2016-10-24] MEDS ORDERED: WARFARIN 5 MG TAB PO SCH (18:00)
[2016-10-24 21:16] VITALS: BP 117/58; PULSE 62; RESP 18; TEMP 96.7
[2016-10-28] MEDS ORDERED: LEVOTHYROXINE 75 MCG TAB PO SCH (06:30)
[2016-11-03] MEDS ORDERED: ERGOCALCIFEROL 50,000 UNIT CAP PO SCH (09:00)
== END 2016-10-24 22:19 | DRG 981 ==
LOC: EC 09:46 → 6SEL 12:47
PROVIDERS: ADMIT Internal Medicine; ATTEND Internal Medicine
PROC: 5A1D60Z (ICD-10-PCS; 2016-10-21)
PROC: 0WPG03Z Removal of Infusion Device from Peritoneal Cavity, Open Approach (ICD-10-PCS; principal; 2016-10-23 12:30)
DX: I13.2 Hypertensive heart and chronic kidney disease with heart failure and with stage 5 chronic kidney disease, or end stage renal disease (principal); I50.33 Acute on chronic diastolic (congestive) heart failure; G93.41 Metabolic encephalopathy; N18.6 End stage renal disease; E11.52 Type 2 diabetes mellitus with diabetic peripheral angiopathy with gangrene; C92.10 Chronic myeloid leukemia, BCR/ABL-positive, not having achieved remission; I48.0 Paroxysmal atrial fibrillation; E11.22 Type 2 diabetes mellitus with diabetic chronic kidney disease; E11.40 Type 2 diabetes mellitus with diabetic neuropathy, unspecified; L03.116 Cellulitis of left lower limb; G25.81 Restless legs syndrome; T81.4XXA Infection following a procedure, initial encounter; E11.649 Type 2 diabetes mellitus with hypoglycemia without coma; E11.319 Type 2 diabetes mellitus with unspecified diabetic retinopathy without macular edema; J44.9 Chronic obstructive pulmonary disease, unspecified; E03.9 Hypothyroidism, unspecified; E78.5 Hyperlipidemia, unspecified; M10.9 Gout, unspecified; I25.10 Atherosclerotic heart disease of native coronary artery without angina pectoris; K57.90 Diverticulosis of intestine, part unspecified, without perforation or abscess without bleeding; F17.200 Nicotine dependence, unspecified, uncomplicated; I25.2 Old myocardial infarction; G89.29 Other chronic pain; M54.5 Low back pain; G47.33 Obstructive sleep apnea (adult) (pediatric); E66.9 Obesity, unspecified; D64.9 Anemia, unspecified; N40.0 Benign prostatic hyperplasia without lower urinary tract symptoms; Z95.0 Presence of cardiac pacemaker; Z99.2 Dependence on renal dialysis; Z96.41 Presence of insulin pump (external) (internal); Z87.442 Personal history of urinary calculi; Z86.73 Personal history of transient ischemic attack (TIA), and cerebral infarction without residual deficits; Z90.49 Acquired absence of other specified parts of digestive tract; Z71.3 Dietary counseling and surveillance; Z68.36 Body mass index [BMI] 36.0-36.9, adult; Z79.01 Long term (current) use of anticoagulants; Z79.82 Long term (current) use of aspirin; Z79.4 Long term (current) use of insulin; Z79.51 Long term (current) use of inhaled steroids; Z79.899 Other long term (current) drug therapy
CPT/HCPCS: 36415; 70450; 71020; 80048; 80053; 82140; 82550; 82553; 83036; 83735; 83880; 84484; 85025; 85027; 85610; 85730; 86850; 86900; 86901; 86920; 87070; 87075; 87077; 87186; 87205; 90935; 94640; 94760; 99285

== ENCOUNTER 2016-10-29 18:19 | Inpatient (IN) | payer MEDICARE, BC ==
[2016-10-29] MEDS ORDERED: SODIUM CHLORIDE 0.9% 500 ML IV SCH (18:30)
--- NOTE | 2016-10-29 18:35 | ED ---
Altered Mental Status HPI - General Chief Complaint: Altered Mental Status Stated Complaint: Fever Time Seen by Provider: 10/29/16 18:30 Source: patient, EMS Mode of arrival: EMS - History of Present Illness Initial Comments: This is a 66-year-old male with multiple comorbidities including end-stage renal disease on dialysis, CAD, PVD with gangrenous changes to bilateral lower extremities, and diabetes presents emergency department for mental status changes at rehab. The patient was reportedly having worsening mental status changes for the last 4 or 5 days. Today he noted that he was much less responsive. They were getting inaccurate blood sugar readings at the care home however given some juice. When EMS arrived they stated that he was not responsive to them. Their initial blood sugar reading was 118. The patient became more coherent throughout the trip to the hospital. Of note the patient' s blood pressure was low at 70/40 at the nursing facility however was normotensive in route to the hospital. No fevers or chills were reported. The patient has essentially no complaints. He denies any shortness of breath or cough. No abdominal pain. No lower extremity pain. Dr. Erickson did call ahead and stated that he believes that the patient was septic from his lower extremity gangrene. - Related Data Home Medications Medication Instructions Recorded Confirmed Aspirin 81 mg PO DAILY@1700 12/21/15 10/29/16 Ergocalciferol [Vitamin D2 50,000 unit PO Q14D 12/21/15 10/29/16 (DRISDOL)] Ranolazine [Ranexa] 500 mg PO BID 12/21/15 10/29/16 Sevelamer [Renvela] 800 mg PO TID 12/21/15 10/29/16 Tamsulosin HCl [Flomax] 0.4 mg PO DAILY 12/21/15 10/29/16 Nitroglycerin Sl Tabs [Nitrostat] 0.4 mg SUBLINGUAL Q5M PRN 02/16/16 10/29/16 Allopurinol [Zyloprim] 200 mg PO HS 06/14/16 10/29/16 Pramipexole [Mirapex] 1 mg PO BID 06/14/16 10/29/16 Rosuvastatin Calcium [Crestor] 5 mg PO DAILY 06/14/16 10/29/16 Imatinib Mesylate [Gleevec] 200 mg PO BID 08/20/16 10/29/16 Cinacalcet [Sensipar] 30 mg PO MOWEFR 09/07/16 10/29/16 Magnesium Oxide [Mag-Ox] 400 mg PO BID 09/07/16 10/29/16 Acetaminophen Tab [Tylenol] 650 mg PO Q6HR PRN 10/21/16 10/29/16 Bisacodyl [Dulcolax] 10 mg RECTAL DAILY PRN 10/21/16 10/29/16 Darbepoetin Richy [Aranesp] 100 mcg SQ Q7D 10/21/16 10/29/16 Folic Acid-Vit B Complex-Vit C 1 cap PO DAILY@1700 10/21/16 10/29/16 [Nephrocaps] INSULIN LISPRO (humaLOG) [humaLOG See Protocol SQ ACHS 10/21/16 10/29/16 (formulary)] Levothyroxine Sodium [Synthroid] 300 mcg PO MOTUWETHFRSA 10/21/16 10/29/16 Levothyroxine Sodium [Synthroid] 450 mcg PO LEON 10/21/16 10/29/16 Magnesium Hydroxide [Milk of 2,400 mg PO BID 10/21/16 10/29/16 Magnesia] Midodrine HCl [ProAmatine] 10 mg PO AC-TID 10/21/16 10/29/16 Midodrine [ProAmatine] 10 mg PO TUTHSA 10/21/16 10/29/16 Na Phos,M-B/Na Phos,Di-Ba [Fleet 133 ml RECTAL DAILY PRN 10/21/16 10/29/16 Adult] Sulfamethox-Tmp 800-160Mg [Bactrim 1 tab PO Q12HR 10/21/16 10/29/16 DS 800-160 mg] Warfarin [Coumadin] 2.5 mg PO SUMOTUTHSA 10/21/16 10/29/16 Warfarin [Coumadin] 5 mg PO WEFR 10/21/16 10/29/16 Lanthanum Carbonate [Fosrenol] 1,000 mg PO DIRECTED 10/22/16 10/29/16 Nystatin 100,000 Unit/ml Susp 5 ml PO QID 10/29/16 10/29/16 [Mycostatin Oral Susp] Previous Rx's Medication Instructions Recorded Budesonide-Formot 160-4.5 Mcg 2 puff INHALATION RT-BID puff 10/01/16 [Symbicort 160-4.5 Mcg Inhaler] Furosemide [Lasix] 80 mg PO BID@0900,1600 tab 10/01/16 INSULIN LISPRO (humaLOG) [humaLOG 5 unit SQ AC-TID vial 10/01/16 (formulary)] Ipratropium-Albuterol Nebulize 3 ml INHALATION RT-QID ampul.neb 10/01/16 [Duoneb 0.5 mg-3 mg/3 ml Soln] Isosorbide Mononitrate ER [Imdur] 15 mg PO DAILY #30 dose 10/01/16 Lactulose [Cephulac] 30 gm PO TID PRN #0 ml 10/01/16 Lisinopril [Zestril] 2.5 mg PO DAILY #30 tablet 10/01/16 Metoprolol Tartrate 12.5 mg PO DAILY #30 tab 10/01/16 Pantoprazole [Protonix] 40 mg PO AC-BRKFST tablet. 10/01/16 HYDROcodone/APAP 7.5-325MG [[place] 1 tab PO Q4H PRN #100 tab 10/24/16 7.5-325] Pregabalin [Lyrica] 50 mg PO HS #30 cap 10/24/16 fentaNYL 12MCG/HR PATCH [Duragesic 1 patch TRANSDERM Q72H #10 patch 10/24/16 12MCG/HR] Allergies Allergy/AdvReac Type Severity Reaction Status Date / Time No Known Allergies Allergy Verified 10/29/16 18:35 Review of Systems ROS Statement: Those systems with pertinent positive or pertinent negative responses have been documented in the HPI. ROS Other: All systems not noted in ROS Statement are negative. Past Medical History Past Medical History: Atrial Fibrillation, Coronary Artery Disease (CAD), Cancer , Chest Pain / Angina, COPD, CVA/TIA, Diabetes Mellitus, Dialysis, Eye Disorder , Hyperlipidemia, Hypertension, Myocardial Infarction ([place]), Prostate Disorder, Renal Disease, Sleep Apnea/CPAP/BIPAP, Thyroid Disorder Additional Past Medical History / Comment(s): Pt recently admitted to [facility] on with cellulitis bilateral lower extremities, toe cyanosis, mild acute/ chronic CHF. 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 Last Myocardial Infarction Date:: unknown History of Any Multi-Drug Resistant Organisms: None Reported Past Surgical History: Back Surgery, Cholecystectomy, Heart Catheterization, Orthopedic Surgery Additional Past Surgical History / Comment(s): 10/21/15 Unsuccessful PTCA proximal RCA, laminectomy, L knee surgery (stapled ligaments back to bone), heart cath x3 (no stents), insertion of peritoneal catheter, Removal of benign cyst from neck, colonoscopy. Past Anesthesia/Blood Transfusion Reactions: No Reported Reaction Past Psychological History: No Psychological Hx Reported Additional Psychological History / Comment(s): Pt resides with his spouse. He has a walker. He no longer drives, his spouse can drive. Smoking Status: Current every day smoker Past Alcohol Use History: None Reported Additional Past Alcohol Use History / Comment(s): started smoking age 13, now down to less than 1 PPD Past Drug Use History: None Reported Additional Drug Use History / Comment(s): . - Past Family History Mother Family Medical History: Cancer Additional Family Medical History / Comment(s): Mother of lung cancer at 86 yrs of age. Father Family Medical History: Cancer Additional Family Medical History / Comment(s): Patient has 2 brothers and 2 sisters which patient states are in good health. General Exam - General Exam Comments Initial Comments: Constitutional: Awake alert Appears comfortable Head: Normocephalic atraumatic Eyes: no conjunctival injection No scleral icterus EOMI Neck: No JVD Supple Heart: Regular rate rhythm normal S1-S2 no murmurs Lungs: Clear to auscultation bilaterally wheezing and rhonchi at the left base Abdomen: Soft nondistended nontender Extremities: Non edematous DP pulses intact Radial pulses intact, there are dry gangrenous changes to the left foot and toes with a little bit of surrounding erythema however no warmth, the right second toe also has dry gangrene changes Neuro: A&Ox3 No focal neurologic deficits Psych: Appropriate mood and affect Course Vital Signs 10/29/16 10/29/16 18:21 21:00 Temperature 99.2 F 98.5 F Pulse Rate 85 85 Respiratory 20 18 Rate Blood Pressure 118/58 95/49 O2 Sat by Pulse 88 L 95 Oximetry - Reevaluation(s) Reevaluation #1: 10/29/16 19:08 EKG showing ventricular paced rhythm with a rate of 84. Appropriate ST segment changes consistent with ventricular paced rhythm. QTC is 562 and prolonged. QRS is also prolonged at 134 due to the pacemaker. No ectopy. Medical Decision Making - Medical Decision Making Is a 66-year-old male who presents emergency department for mental status changes and worsening gangrene his left lower extremity. Work was reviewed and unchanged from previous. The patient is awake and alert here. He does have some erythema around his gangrene which I'm told from the is different from previous. I spoke with Dr. Farrell who stated that he wanted to see the patient in the morning to determine whether he needed surgery. He agreed with vancomycin and Zosyn to cover him for infection at this time. Spoke with Dr. morton to except admission. The patient will be admitted for vascular surgery consultation and further monitoring. Patient family were updated and agree. - Lab Data Result diagrams: 10/29/16 19:25 10/29/16 19:25 Lab Results 10/29/16 10/29/16 10/29/16 Range/Units 18:38 18:55 19:25 WBC (3.8-10.6) k/uL RBC (4.30-5.90) m/uL Hgb (13.0-17.5) gm/dL Hct (39.0-53.0) % MCV (80.0-100.0) fL MCH (25.0-35.0) pg MCHC (31.0-37.0) g/dL RDW (11.5-15.5) % Plt Count (150-450) k/uL Neutrophils % % Lymphocytes % % Monocytes % % Eosinophils % % Basophils % % Neutrophils # (1.3-7.7) k/uL Lymphocytes # (1.0-4.8) k/uL Monocytes # (0-1.0) k/uL Eosinophils # (0-0.7) k/uL Basophils # (0-0.2) k/uL Hypochromasia Anisocytosis Macrocytosis PT (9.0-12.0) sec INR (<1.1) APTT (22.0-30.0) sec VBG pH (7.31-7.41) VBG pCO2 (37-51) mmHg VBG HCO3 (24-28) mmol/L Sodium (137-145) mmol/L Potassium (3.5-5.1) mmol/L Chloride (98-107) mmol/L Carbon Dioxide (22-30) mmol/L Anion Gap mmol/L BUN (9-20) mg/dL Creatinine (0.66-1.25) mg/dL Est GFR (MDRD) Af Amer (>60 ml/min/1.73 sqM) Est GFR (MDRD) Non-Af (>60 ml/min/1.73 sqM) Glucose (74-99) mg/dL POC Glucose (mg/dL) 84 (75-99) mg/dL POC Glu Toggle Press Folder And Feeder ID Leela Mane Plasma Lactic Acid Kd 1.0 (0.7-2.0) mmol/L Calcium (8.4-10.2) mg/dL Total Bilirubin (0.2-1.3) mg/dL AST (17-59) U/L ALT (21-72) U/L Alkaline Phosphatase (38-126) U/L Total Creatine Kinase (55-170) U/L CK-MB (CK-2) (0.0-2.4) ng/mL CK-MB (CK-2) Rel Index Troponin I (0.000-0.034) ng/mL NT-Pro-B Natriuret Pep pg/mL Total Protein (6.3-8.2) g/dL Albumin (3.5-5.0) g/dL Cortisol ug/dL Influenza Type A RNA Not Detected (Not Detectd) Influenza Type B (PCR) Not Detected (Not Detectd) 10/29/16 10/29/16 10/29/16 Range/Units 19:25 19:25 19:25 WBC 10.6 (3.8-10.6) k/uL RBC 2.31 L (4.30-5.90) m/uL Hgb 7.2 L (13.0-17.5) gm/dL Hct 22.8 L (39.0-53.0) % MCV 98.6 (80.0-100.0) fL MCH 31.0 (25.0-35.0) pg MCHC 31.4 (31.0-37.0) g/dL RDW 17.2 H (11.5-15.5) % Plt Count 279 (150-450) k/uL Neutrophils % 85 % Lymphocytes % 8 % Monocytes % 5 % Eosinophils % 0 % Basophils % 0 % Neutrophils # 9.0 H (1.3-7.7) k/uL Lymphocytes # 0.9 L (1.0-4.8) k/uL Monocytes # 0.5 (0-1.0) k/uL Eosinophils # 0.0 (0-0.7) k/uL Basophils # 0.0 (0-0.2) k/uL Hypochromasia Moderate Anisocytosis Slight Macrocytosis Slight PT 37.8 H (9.0-12.0) sec INR 3.9 (<1.1) APTT 44.4 H (22.0-30.0) sec VBG pH (7.31-7.41) VBG pCO2 (37-51) mmHg VBG HCO3 (24-28) mmol/L Sodium 136 L (137-145) mmol/L Potassium 4.9 (3.5-5.1) mmol/L Chloride 98 (98-107) mmol/L Carbon Dioxide 28 (22-30) mmol/L Anion Gap 10 mmol/L BUN 52 H (9-20) mg/dL Creatinine 5.23 H* (0.66-1.25) mg/dL Est GFR (MDRD) Af Amer 13 (>60 ml/min/1.73 sqM) Est GFR (MDRD) Non-Af 11 (>60 ml/min/1.73 sqM) Glucose 101 H (74-99) mg/dL POC Glucose (mg/dL) (75-99) mg/dL POC Glu Toggle Press Folder And Feeder ID Plasma Lactic Acid Kd (0.7-2.0) mmol/L Calcium 6.9 L (8.4-10.2) mg/dL Total Bilirubin 0.5 (0.2-1.3) mg/dL AST 34 (17-59) U/L ALT 39 (21-72) U/L Alkaline Phosphatase 141 H (38-126) U/L Total Creatine Kinase (55-170) U/L CK-MB (CK-2) (0.0-2.4) ng/mL CK-MB (CK-2) Rel Index Troponin I (0.000-0.034) ng/mL NT-Pro-B Natriuret Pep pg/mL Total Protein 4.6 L (6.3-8.2) g/dL Albumin 2.3 L (3.5-5.0) g/dL Cortisol 24 ug/dL Influenza Type A RNA (Not Detectd) Influenza Type B (PCR) (Not Detectd) 10/29/16 10/29/16 10/29/16 Range/Units 19:25 19:25 19:25 WBC (3.8-10.6) k/uL RBC (4.30-5.90) m/uL Hgb (13.0-17.5) gm/dL Hct (39.0-53.0) % MCV (80.0-100.0) fL MCH (25.0-35.0) pg MCHC (31.0-37.0) g/dL RDW (11.5-15.5) % Plt Count (150-450) k/uL Neutrophils % % Lymphocytes % % Monocytes % % Eosinophils % % Basophils % % Neutrophils # (1.3-7.7) k/uL Lymphocytes # (1.0-4.8) k/uL Monocytes # (0-1.0) k/uL Eosinophils # (0-0.7) k/uL Basophils # (0-0.2) k/uL Hypochromasia Anisocytosis Macrocytosis PT (9.0-12.0) sec INR (<1.1) APTT (22.0-30.0) sec VBG pH 7.48 H (7.31-7.41) VBG pCO2 39 (37-51) mmHg VBG HCO3 29 H (24-28) mmol/L Sodium (137-145) mmol/L Potassium (3.5-5.1) mmol/L Chloride (98-107) mmol/L Carbon Dioxide (22-30) mmol/L Anion Gap mmol/L BUN (9-20) mg/dL Creatinine (0.66-1.25) mg/dL Est GFR (MDRD) Af Amer (>60 ml/min/1.73 sqM) Est GFR (MDRD) Non-Af (>60 ml/min/1.73 sqM) Glucose (74-99) mg/dL POC Glucose (mg/dL) (75-99) mg/dL POC Glu Toggle Press Folder And Feeder ID Plasma Lactic Acid Kd (0.7-2.0) mmol/L Calcium (8.4-10.2) mg/dL Total Bilirubin (0.2-1.3) mg/dL AST (17-59) U/L ALT (21-72) U/L Alkaline Phosphatase (38-126) U/L Total Creatine Kinase 186 H (55-170) U/L CK-MB (CK-2) 5.2 H* (0.0-2.4) ng/mL CK-MB (CK-2) Rel Index 2.8 Troponin I 0.214 H* (0.000-0.034) ng/mL NT-Pro-B Natriuret Pep 64537 pg/mL Total Protein (6.3-8.2) g/dL Albumin (3.5-5.0) g/dL Cortisol ug/dL Influenza Type A RNA (Not Detectd) Influenza Type B (PCR) (Not Detectd) Disposition Clinical Impression: Gangrene, Cellulitis, ESRD (end stage renal disease) Disposition: ADMITTED IP TO THIS HOSP Condition: Stable
[2016-10-29 18:49] LABS: Glucose,Whole Blood 84 mg/dL (75-99)
[2016-10-29 19:37] LABS: VBG PH 7.48 (7.31-7.41)
[2016-10-29 19:39] LABS: Anisocytosis Slight; Basophils % (A) 0 %; CHCM 30.7; Eosinophils % (A) 0 %; HCT 22.8 % (39.0-53.0); HDW 3.15; HGB 7.2 gm/dL (13.0-17.5); Hypochromasia Moderate; Luc # (Auto) 0.13; Luc % (Auto) 1; Lymphocytes # (A) 0.9 k/uL (1.0-4.8); Lymphocytes % (A) 8 %; MCHC 31.4 g/dL (31.0-37.0); MCV 98.6 fL (80.0-100.0); Macrocytosis Slight; Mean Platelet Volume 7.4; Monocytes # (A) 0.5 k/uL (0-1.0); Monocytes % (A) 5 %; Neutrophils % (A) 85 %; RBC 2.31 m/uL (4.30-5.90); RDW 17.2 % (11.5-15.5); WBC 10.6 k/uL (3.8-10.6)
[2016-10-29 19:49] LABS: INR 3.9 (<1.1); Partial Thromboplastin Time 44.4 sec (22.0-30.0); Prothrombin Time 37.8 sec (9.0-12.0)
[2016-10-29 19:52] LABS: Calcium 6.9 mg/dL (8.4-10.2); Potassium 4.9 mmol/L (3.5-5.1); Total Bilirubin 0.5 mg/dL (0.2-1.3); Total Protein 4.6 g/dL (6.3-8.2)
--- NOTE | 2016-10-29 19:59 | CT ---
EXAMINATION TYPE: CT brain wo con DATE OF EXAM: 10/29/2016 7:52 PM COMPARISON: 10/21/2016 HISTORY: Altered mental status. CT DLP: 1043.30 mGycm Automated exposure control for dose reduction was used. FINDINGS: There is cerebral cortical atrophy. There is no mass effect nor midline shift. There is no sign of in tracranial hemorrhage. Exam is limited slightly by motion. Calvarium is intact. There is mild hypoden sity in the periventricular white matter. IMPRESSION: Cerebral atrophy and mild chronic small vessel ischemia. No acute intracranial abnormality. No change .
--- NOTE | 2016-10-29 20:24 | XR ---
EXAMINATION TYPE: XR chest 1V portable DATE OF EXAM: 10/29/2016 8:11 PM COMPARISON: 10/23/2016 HISTORY: Fever and hypotension TECHNIQUE: Single frontal view of the chest is obtained. FINDINGS: Heart is enlarged. There is pulmonary vascular congestion. Thoracic aorta is atheromatous. There is a right side central venous catheter with tip in the superior vena cava. There is a left ax illary pacemaker. IMPRESSION: Congestive heart failure. Pulmonary congestion is not significantly different than last exam.
--- NOTE | 2016-10-29 20:25 | XR ---
EXAMINATION TYPE: XR foot complete bilateral DATE OF EXAM: 10/29/2016 8:11 PM COMPARISON: NONE HISTORY: Gangrene TECHNIQUE: 5 views FINDINGS: There is vascular calcification. There is a plantar calcaneal spur bilaterally. Metatarsals are intact. I see no focal bone destruction. IMPRESSION: No acute abnormality. No sign of osteomyelitis.
[2016-10-29 20:32] LABS: Creatine Kinase MB 5.2 ng/mL (0.0-2.4); Troponin I 0.214 ng/mL (0.000-0.034)
[2016-10-29] MEDS ORDERED: IV VANCOMYCIN PER PHARMACY 1 EACH MISC MISCELLANE PRN (21:15)
[2016-10-29] MEDS ORDERED: PIPERACILLIN-TAZOBACTAM 3.375 GM in DEXTROSE/WATER 1 50ML.BAG IVPB STA (21:15)
[2016-10-29] MEDS ORDERED: NALOXONE 0.4 MG/ML 1 ML VIAL IV PRN (21:43)
[2016-10-29] MEDS ORDERED: VANCOMYCIN 1,750 MG in SODIUM CHLORIDE 0.9% 250 ML IVPB STA (21:50)
[2016-10-29] MEDS ORDERED: MORPHINE SULFATE 4 MG/ML SYRINGE IVP STA (22:19)
[2016-10-30 02:29] LABS: Creatine Kinase MB 6.5 ng/mL (0.0-2.4); Troponin I 0.202 ng/mL (0.000-0.034)
[2016-10-30 05:50] LABS: Glucose,Whole Blood 104 mg/dL (75-99)
[2016-10-30 08:53] LABS: Creatine Kinase MB 5.9 ng/mL (0.0-2.4)
[2016-10-30 08:54] LABS: Troponin I 0.189 ng/mL (0.000-0.034)
[2016-10-30] MEDS: INSULIN LISPRO (humaLOG) 300 UNIT/3 ML VIAL SQ SCH ×3 (12:43→16:51)
[2016-10-30 12:45] LABS: Glucose,Whole Blood 110 mg/dL (75-99)
[2016-10-30] MEDS ORDERED: LACTULOSE 20 GM/30 ML CUP PO PRN (12:58)
[2016-10-30] MEDS ORDERED: HYDROcodone/APAP 7.5-325MG 1 EACH TAB PO PRN (12:58)
[2016-10-30] MEDS ORDERED: NA PHOS,M-B/NA PHOS,DI-BA 133 ML ENEMA RECTAL PRN (12:58)
[2016-10-30] MEDS ORDERED: NITROGLYCERIN SL TABS 0.4 MG TAB SUBLINGUAL PRN (12:58)
[2016-10-30] MEDS ORDERED: ACETAMINOPHEN TAB 325 MG TAB PO PRN (12:58)
[2016-10-30] MEDS ORDERED: BISACODYL 10 MG SUPP RECTAL PRN (12:58)
[2016-10-30] MEDS ORDERED: WARFARIN 2.5 MG TAB PO SCH (13:00)
[2016-10-30 13:08] LABS: Hemoglobin A1C 5.1 % (4.2-6.1)
[2016-10-30] MEDS: NYSTATIN 100,000 UNIT/ML SUSP 500,000 UNIT/5 ML CUP PO SCH ×2 (13:54→16:24)
[2016-10-30] MEDS: LEVOTHYROXINE 100 MCG TAB PO SCH (13:54)
[2016-10-30] MEDS: FUROSEMIDE 80 MG TAB PO SCH (16:24)
[2016-10-30] MEDS: MIDODRINE 5 MG TAB PO SCH ×2 (16:24→23:01)
--- NOTE | 2016-10-30 16:27 | P.GSCN ---
History of Present Illness History of present illness: 66 white male, patient came to the emergency room with history of some mental status changes patient given the ER and found to have blood sugars 70/40 this patient has recently been discharged with multiple medical problems patient has history of end-stage renal disease and is on dialysis 3 times a week and also has history of coronary artery disease peripheral vascular disease patient has a gangrene of the left foot toes and also right foot second toe the gangrene is dry patient also has a history of diabetes patient also history A. fib on Coumadin Surgical history patient had a laminectomy, history of recently left hip surgery Nonsmoker no known ALLERGIES On examination his temperature is 99.2, ulcers 85, [id number] The chest patient has a wheezing at the lung bases first and second sound present Abdomen soft nontender femoral pulses are present posterior to dorsal pedal not palpable a gangrene of the left foot involving all the toes and involving the plantar aspect of the foot and also gangrene changes noted in the right foot second toe Patient had a aortogram with runoff done in the past and endings were patient has a severe infrapopliteal occlusive disease with single-vessel runoff stop at the lower one third of the left lower leg with multiple collaterals We had a long discussion with the patient and patient's family and patient has severe infrapopliteal occlusive disease and flow noted of the foot is only collaterals are noted and not a case for any kind of surgical intervention he Plan is we will again review the angiogram most likely patient will need major amputation is likely [id number] amputation. I have also discussed about 2 below-knee amputation but risk of nonhealing is about 40% impression: We will proceed with surgery patient scheduled to be seen by cardiology for clearance if medically stable we will proceed to surgery on Saturday risk and complication discussed with the patient and the family they understand Past Medical History Past Medical History: Atrial Fibrillation, Coronary Artery Disease (CAD), Cancer , Chest Pain / Angina, COPD, CVA/TIA, Diabetes Mellitus, Dialysis, Eye Disorder , Hyperlipidemia, Hypertension, Myocardial Infarction ([place]), Prostate Disorder, Renal Disease, Sleep Apnea/CPAP/BIPAP, Thyroid Disorder Additional Past Medical History / Comment(s): Pt recently admitted to [facility] on with cellulitis bilateral lower extremities, toe cyanosis, mild acute/ chronic CHF. Other HX: IDDM type II-insulin pump, ESRD dialysis-peritoneal , nephrolithiasis, chronic anemia, leukemia-CML, metabolic bone disease, abnormal [place] chromosome, "slight stroke"-no deficits, htn cardiovascular disease, chronic CHF, PAD, current discolored toes, chronic low back pain-nerve damage from injury, SAMANTHA doesn't wear his bipap, diabetic neuropathy bilateral legs and feet, diabetic retinopathy, gout, DDD, diverticulosis, vertigo, RLS, BPH. Last Myocardial Infarction Date:: unknown History of Any Multi-Drug Resistant Organisms: None Reported Past Surgical History: Back Surgery, Cholecystectomy, Heart Catheterization, Orthopedic Surgery Additional Past Surgical History / Comment(s): 10/21/15 Unsuccessful PTCA proximal RCA, laminectomy, L knee surgery (stapled ligaments back to bone), heart cath x3 (no stents), insertion of peritoneal catheter, Removal of benign cyst from neck, colonoscopy. Past Anesthesia/Blood Transfusion Reactions: No Reported Reaction Past Psychological History: No Psychological Hx Reported Additional Psychological History / Comment(s): Pt resides with his spouse. He has a walker. He no longer drives, his spouse can drive. pt was at [facility] for rehab prior to admit 10/29/2016 Smoking Status: Former smoker Past Alcohol Use History: None Reported Additional Past Alcohol Use History / Comment(s): started smoking age 13, quit in 2016 Past Drug Use History: None Reported Additional Drug Use History / Comment(s): . - Past Family History Mother Family Medical History: Cancer Additional Family Medical History / Comment(s): Mother of lung cancer at 86 yrs of age. Father Family Medical History: Cancer Additional Family Medical History / Comment(s): Patient has 2 brothers and 2 sisters which patient states are in good health. Medications and Allergies Home Medications Medication Instructions Recorded Confirmed Type Aspirin 81 mg PO DAILY@1700 12/21/15 10/29/16 History Ergocalciferol [Vitamin D2 50,000 unit PO Q14D 12/21/15 10/29/16 History (DRISDOL)] Ranolazine [Ranexa] 500 mg PO BID 12/21/15 10/29/16 History Sevelamer [Renvela] 800 mg PO TID 12/21/15 10/29/16 History Tamsulosin HCl [Flomax] 0.4 mg PO DAILY 12/21/15 10/29/16 History Nitroglycerin Sl Tabs [Nitrostat] 0.4 mg SUBLINGUAL Q5M PRN 02/16/16 10/29/16 History Allopurinol [Zyloprim] 200 mg PO HS 06/14/16 10/29/16 History Pramipexole [Mirapex] 1 mg PO BID 06/14/16 10/29/16 History Rosuvastatin Calcium [Crestor] 5 mg PO DAILY 06/14/16 10/29/16 History Imatinib Mesylate [Gleevec] 200 mg PO BID 08/20/16 10/29/16 History Cinacalcet [Sensipar] 30 mg PO MOWEFR 09/07/16 10/29/16 History Magnesium Oxide [Mag-Ox] 400 mg PO BID 09/07/16 10/29/16 History Acetaminophen Tab [Tylenol] 650 mg PO Q6HR PRN 10/21/16 10/29/16 History Bisacodyl [Dulcolax] 10 mg RECTAL DAILY PRN 10/21/16 10/29/16 History Darbepoetin Richy [Aranesp] 100 mcg SQ Q7D 10/21/16 10/29/16 History Folic Acid-Vit B Complex-Vit C 1 cap PO DAILY@1700 10/21/16 10/29/16 History [Nephrocaps] INSULIN LISPRO (humaLOG) [humaLOG See Protocol SQ ACHS 10/21/16 10/29/16 History (formulary)] Levothyroxine Sodium [Synthroid] 300 mcg PO MOTUWETHFRSA 10/21/16 10/29/16 History Levothyroxine Sodium [Synthroid] 450 mcg PO LEON 10/21/16 10/29/16 History Magnesium Hydroxide [Milk of 2,400 mg PO BID 10/21/16 10/29/16 History Magnesia] Midodrine HCl [ProAmatine] 10 mg PO AC-TID 10/21/16 10/29/16 History Midodrine [ProAmatine] 10 mg PO TUTHSA 10/21/16 10/29/16 History Na Phos,M-B/Na Phos,Di-Ba [Fleet 133 ml RECTAL DAILY PRN 10/21/16 10/29/16 History Adult] Sulfamethox-Tmp 800-160Mg [Bactrim 1 tab PO Q12HR 10/21/16 10/29/16 History DS 800-160 mg] Warfarin [Coumadin] 2.5 mg PO SUMOTUTHSA 10/21/16 10/29/16 History Warfarin [Coumadin] 5 mg PO WEFR 10/21/16 10/29/16 History Lanthanum Carbonate [Fosrenol] 1,000 mg PO DIRECTED 10/22/16 10/29/16 History Nystatin 100,000 Unit/ml Susp 5 ml PO QID 10/29/16 10/29/16 History [Mycostatin Oral Susp] Allergies Allergy/AdvReac Type Severity Reaction Status Date / Time No Known Allergies Allergy Verified 10/29/16 18:35 Surgical - Exam Vital Signs Temp Pulse Resp BP Pulse Ox 99.2 F 85 20 118/58 88 L 10/29/16 18:21 10/29/16 18:21 10/29/16 18:21 10/29/16 18:21 10/29/16 18:21 Results - Labs 10/29/16 19:25 10/29/16 19:25 Abnormal Lab Results - Last 24 Hours (Table) 10/30/16 10/30/16 10/30/16 Range/Units 01:21 05:48 07:22 POC Glucose (mg/dL) 104 H (75-99) mg/dL Total Creatine Kinase 221 H 235 H (55-170) U/L CK-MB (CK-2) 6.5 H* 5.9 H* (0.0-2.4) ng/mL Troponin I 0.202 H* 0.189 H* (0.000-0.034) ng/mL 10/30/16 Range/Units 12:39 POC Glucose (mg/dL) 110 H (75-99) mg/dL Total Creatine Kinase (55-170) U/L CK-MB (CK-2) (0.0-2.4) ng/mL Troponin I (0.000-0.034) ng/mL Diabetes panel 10/30/16 Range/Units 07:22 Hemoglobin A1c 5.1 (4.2-6.1) %
[2016-10-30] MEDS: IPRATROPIUM-ALBUTEROL 3 ML NEB INHALATION SCH ×2 (16:29→20:06)
[2016-10-30 16:36] LABS: Glucose,Whole Blood 156 mg/dL (75-99)
[2016-10-30] MEDS: FOLIC ACID-VIT B COMPLEX-VIT C 1 CAP PO SCH (16:38)
[2016-10-30] MEDS: ASPIRIN 81 MG CHEW PO SCH (16:38)
[2016-10-30] MEDS: SEVELAMER 800 MG TAB PO SCH (16:51)
--- NOTE | 2016-10-30 18:14 | CONS ---
DATE OF CONSULTATION: CHIEF COMPLAINT: Preop cardiac evaluation. Fracisco is a 66-year-old gentleman with history of chronic atrial fibrillation, coronary artery disease on medical therapy with a normal stress test a year ago with normal myocardial perfusion functions, history of pacemaker implantation and history of unsuccessful angioplasty of the right coronary artery who presented to hospital with gangrene of the left foot and the patient is to undergo amputation by Dr. Farrell and I have been consulted for preop cardiac evaluation. Patient may need a bony amputation. He has severe infrapopliteal occlusive disease. The patient has a history of A. fib and takes Coumadin. Coumadin is currently on hold because of elevated INR. Past medical history is significant for CAD, COPD, hypertension, and dyslipidemia, renal failure, sleep apnea, thyroid disorder, atrial fibrillation, diabetes, and diabetic neuropathy, peripheral vascular disease, history of unsuccessful PTCA. FAMILY HISTORY: Negative for premature coronary artery disease. SOCIAL HISTORY: Significant for smoking. REVIEW OF SYSTEMS: HEENT: He has had mild confusion on his initial presentation. CARDIAC: Negative. RESPIRATORY: Negative. GI: Negative. GENITOURINARY: Negative. Allergy/immunology: Negative. SKIN: Significant gangrene of the toes, blackish discoloration bilaterally. 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 PSYCHOSOCIAL: Negative. ENDOCRINE: Negative. HEMATOLOGICAL: Negative. CONSTITUTIONAL: Negative. Oncological: Negative. HEMATOLOGICAL: Negative. The rest of the system review is not relevant. On exam he is comfortable. Heart rate is 90 beats per minute, blood pressure 102/50. Respiratory rate 18. Chest exam reveals diminished air entry at the bases. Heart exam reveals first and second heart sounds. No gallop. There is a systolic murmur in the left lower sternal border. ABDOMEN: Soft. Exam of the extremities reveals absent pulses both posterior tibial and dorsalis pedis bilaterally. He has gangrene of the toes more on the left side. Right side also there is blackish discoloration of the toes. Labs show a potassium of 4.9. BUN is 50. Creatinine is 5.2, troponin is 8.2, BNP is elevated at 63,700. EKG shows paced rhythm. ASSESSMENT: 1. Preop cardiac evaluation. 2. End-stage renal disease on hemodialysis. 3. Complete heart block status post permanent pacemaker. 4. Peripheral vascular disease with gangrene of the left foot and impending gangrene on the right side. 5. Coronary artery disease. 6. Paroxysmal atrial fibrillation. PLAN: The patient had an echo done in August that showed normal LV function with mitral regurgitation and moderate mitral stenosis and mild troponin elevation on this admission is felt to be related to be renal failure. The patient is clinically not in congestive heart failure while the BNP is elevated. He needs a life-saving surgery and it is a high risk surgery given all these medical problems, however ( ) will proceed with it.
--- NOTE | 2016-10-30 19:35 | CONS ---
DATE OF CONSULTATION: 10/30/2016. REASON FOR CONSULTATION: End-stage renal disease. HISTORY OF PRESENT ILLNESS: Patient is a 67-year-old white male with end-stage renal disease on hemodialysis on a Saturday, , Saturday schedule. He was admitted to the hospital with complaints of altered mentation and was sent over from the rehab facility. His blood pressure was low with systolic around 70s at the time of admission. There was question of possible hypoglycemia as well. Patient does have bilateral ischemic feet and gangrenous changes on toes on both feet. There was no fever. No nausea, vomiting, or abdominal pain. He has been short of breath. Chest x-ray from today shows evidence of pulmonary vascular congestion. PAST MEDICAL HISTORY: End-stage renal disease. Peripheral vascular disease. 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 Osteoarthritis. Neuropathy and BPH, and obstructive sleep apnea, CVA/TIA and COPD. PAST SURGICAL HISTORY: Back surgery, cholecystectomy, cardiac catheterization, coronary stents, PD catheter placement and removal, Perm-A-Cath placement. SOCIAL HISTORY: Positive for smoking. No history of drug abuse or alcohol abuse. REVIEW OF SYSTEMS: As per HPI. Other systems negative. Medications are reviewed. ALLERGIES: None. On examination, the patient is comfortable. He is awake. He is not in any acute distress. Blood pressure is 102/52, heart rate about 61 per minute. The patient is afebrile. Examination of the heart S1 and S2. Examination of the lungs: Bilateral breath sounds are heard. ABDOMEN: Soft, nontender, obese. Examination of lower extremities shows chronic skin changes. No significant edema is noted. There are gangrenous changes on toes on both feet on bilateral feet. 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 Labs reveal hemoglobin 7.2, sodium 136, potassium 4.9. ASSESSMENT: 1. End-stage renal disease on hemodialysis on a Saturday, , Saturday schedule. 2. Anemia of chronic disease with hemoglobin staying at about 7.2 and 7.3 g/dL with resistance to equal secondary to chronic inflammatory state with gangrenous changes both feet. 3. Altered mentation possibly related to medications. Expect improvement with dialysis. Need to avoid the higher dose of Peck. 4. Hypertension. Blood pressure currently on the lower side. We will use Midodrine prior to dialysis, he is on a very low dose of Lisinopril at 2.5 mg for which I will also add parameters. 5. Metabolic bone disease, maintained on Sensipar, which we can continue. 6. Peripheral vascular disease with gangrene both feet, status post evaluation by vascular. PLAN: Hemodialysis today with UF as tolerated. We will give Midodrine prior to treatment. Decrease the dose of Peck. Thank you for this consultation. Will continue to follow the patient with you during his hospitalization.
[2016-10-30] MEDS: SYMBICORT 160-4.5 MCG INHALER INHALATION SCH (20:06)
[2016-10-30 20:51] LABS: Glucose,Whole Blood 97 mg/dL (75-99)
--- NOTE | 2016-10-30 23:45 | P.HPIM ---
History of Present Illness H&P Date: 10/30/16 Chief Complaint: Alt her mental status, sepsis, worsening gangrene of the toes, intractable 66-year-old male one of Dr. Erickson's patient with multiple medical problem was known to have end-stage renal disease on hemodialysis 3 times a week history of CAD, PVD with gangrene change of bilateral lower extremity more than the left on the right side also has history of diabetes history of COPD and carbon dioxide retention as well. Patient was hospitalized few weeks ago for rapid left hip fracture ended up requiring ORIF with Dr. Grady and was transferred to [facility] still have limited weightbearing on the hip area watch his in [facility] developed to have significant mental status change along with intractable worsening pain and discomfort with low-grade temperature and hypotension with symptoms more consistent with sepsis possible worsening condition with his gangrenous toes with infection might be somewhere else patient ended up coming to the emergency department at [facility] where was seen and evaluated his workup initially did not show whole a lot of a change but continued to have significant altered mental status along with worsening gangrene of the left side. Dr. Farrell was contacted with his current condition been seen at the wound clinic decided to admit patient to the hospital start him on IV antibiotic and evaluated while he is in the hospital for potential need for urgent amputation. Review of Systems Constitutional: Reports chronic headaches, Reports chronic pain, Reports fatigue , Reports lethargy, Reports malaise, Reports poor appetite, Reports weakness, Reports weight gain, Denies as per HPI, Denies anorexia, Denies chills, Denies daytime sleepiness, Denies fever, Denies night sweats, Denies sweats, Denies weight loss Eyes: bilateral as per HPI Ears: bilateral: decreased hearing Ears, nose, mouth and throat: Reports ant. neck pain, Reports nasal congestion, Reports nasal discharge, Reports neck fullness/pressure, Reports sinus pain, Reports sinus pressure, Denies as per HPI, Denies bleeding gums, Denies dental pain, Denies dysphagia, Denies epistaxis, Denies headache, Denies hoarseness, Denies mouth pain, Denies neck lump, Denies nose pain, Denies odynophagia, Denies post-nasal drip, Denies swelling in mouth, Denies swelling in throat, Denies sore throat, Denies vertigo, Denies voice changes Cardiovascular: Reports chest pain, Reports decreased exercise tolerance, Reports dyspnea on exertion, Reports edema, Reports irregular heart beat, Reports leg edema, Reports palpitations, Reports rapid heart beat, Reports shortness of breath, Denies as per HPI, Denies claudication, Denies high blood pressure, Denies lightheadedness, Denies orthopnea, Denies paroxysmal nocturnal dyspnea, Denies phlebitis, Denies syncope Respiratory: Reports congestion, Reports cough, Reports pain on inspiration, Reports sleep apnea, Denies as per HPI, Denies cough with sputum, Denies dyspnea , Denies excessive sputum, Denies hemoptysis, Denies home oxygen, Denies pain, Denies pleurisy, Denies respiratory infections, Denies snoring, Denies wheezing Gastrointestinal: Reports abdominal pain, Reports bloating, Reports constipation , Reports dyspepsia, Reports indigestion, Reports loss of appetite, Reports nausea, Denies as per HPI, Denies belching, Denies BRBPR, Denies change in bowel habits, Denies coffee ground emesis, Denies diarrhea, Denies early satiety , Denies excessive gas, Denies heartburn, Denies hematemesis, Denies hematochezia, Denies jaundice, Denies lactose intolerance, Denies melena, Denies vomiting Genitourinary: Denies as per HPI, Denies decreased libido, Denies difficulties fathering child, Denies discharge, Denies dysuria, Denies erectile dysfunction, Denies flank pain, Denies genital pain, Denies genital sores, Denies hematuria, Denies impotence, Denies incontinence, Denies kidney stones, Denies nocturia, Denies polyuria, Denies testicular lump, Denies testicular pain, Denies urinary frequency, Denies urinary hesitancy, Denies urinary retention Musculoskeletal: Reports leg numbness/tingling, Reports low back pain, Reports myalgias, Reports neck pain, Reports neck stiffness, Denies as per HPI, Denies arm numbness/tingling, Denies atrophy, Denies fractures, Denies frequent falls, Denies gait dysfunction, Denies hot joints, Denies limitation of motion, Denies loss of height, Denies morning stiffness, Denies muscle cramps, Denies muscle weakness, Denies prior amputations, Denies redness of joints, Denies shooting arm pain, Denies shooting leg pain Musculoskeletal: left: hip pain, hip stiffness, hip swelling Integumentary: Reports pruritus, Reports rash, Denies as per HPI, Denies acne, Denies boils, Denies brittle nails, Denies change in hair/nails, Denies color changes, Denies darkening of skin, Denies depigmentation, Denies dryness, Denies foot/leg ulcers, Denies growths, Denies hirsutism, Denies lesions, Denies onychomycosis, Denies sores, Denies striae, Denies unusual bruising, Denies wounds Neurological: Reports aphasia, Reports ataxia, Reports confusion, Reports numbness, Reports paresthesias, Reports tingling, Reports tremors, Denies as per HPI, Denies balance difficulties, Denies burning pain, Denies change in mentation, Denies change in smell/taste, Denies change in speech, Denies convulsions, Denies double vision, Denies gait dysfunction, Denies head injury, Denies headaches, Denies hearing difficulties, Denies lack of coordination, Denies loss of vision, Denies memory loss, Denies migraines, Denies motor disturbance, Denies paralysis, Denies seizures, Denies sensory deficit, Denies spasticity, Denies syncope, Denies tic, Denies transient paralysis, Denies vertigo, Denies weakness, Denies visual changes Psychiatric: Reports anhedonia, Reports depression, Reports memory loss, Reports sadness/tearfulness, Denies as per HPI, Denies anxiety, Denies anxiety attacks, Denies change in appetite, Denies change in libido, Denies change in sleep habits, Denies confusion, Denies difficulty concentrating, Denies disorientation, Denies hallucinations, Denies hopelessness, Denies hypersomnia, Denies insomnia, Denies irritability, Denies mood swings, Denies paranoia, Denies sleep disturbances, Denies suicidal ideation Endocrine: Reports excessive thirst, Reports high blood sugars, Reports polyphagia, Reports polyuria, Denies as per HPI, Denies cold intolerance, Denies deepening of the voice, Denies excessive sweating, Denies fatigue, Denies flushing, Denies heat intolerance, Denies increase in ring/shoe/hat size , Denies low blood sugars, Denies nocturia, Denies palpitations, Denies polydipsia, Denies proptosis, Denies recent glucocorticoid use, Denies thyroid mass, Denies weight change Hematologic/Lymphatic: Reports easy bruising, Denies as per HPI, Denies easy bleeding, Denies lymphadenopathy, Denies lymphedema, Denies thrombophilia Allergic/Immunologic: Denies as per HPI, Denies allergic rhinitis, Denies anaphylaxis, Denies angioedema, Denies gluten intolerance, Denies persistent infections, Denies seasonal allergies, Denies urticaria, Denies wheezing Past Medical History Past Medical History: Atrial Fibrillation, Coronary Artery Disease (CAD), Cancer , Chest Pain / Angina, COPD, CVA/TIA, Diabetes Mellitus, Dialysis, Eye Disorder , Hyperlipidemia, Hypertension, Myocardial Infarction (WA), Prostate Disorder, Renal Disease, Sleep Apnea/CPAP/BIPAP, Thyroid Disorder Additional Past Medical History / Comment(s): Pt recently admitted to [facility] on with cellulitis bilateral lower extremities, toe cyanosis, mild acute/ chronic CHF. Other HX: IDDM type II-insulin pump, ESRD dialysis-peritoneal , nephrolithiasis, chronic anemia, leukemia-CML, metabolic bone disease, abnormal Towner chromosome, "slight stroke"-no deficits, htn cardiovascular disease, chronic CHF, PAD, current discolored toes, chronic low back pain-nerve damage from injury, SAMANTHA doesn't wear his bipap, diabetic neuropathy bilateral legs and feet, diabetic retinopathy, gout, DDD, diverticulosis, vertigo, RLS, BPH. Last Myocardial Infarction Date:: unknown History of Any Multi-Drug Resistant Organisms: None Reported Past Surgical History: Back Surgery, Cholecystectomy, Heart Catheterization, Orthopedic Surgery Additional Past Surgical History / Comment(s): 10/21/15 Unsuccessful PTCA proximal RCA, laminectomy, L knee surgery (stapled ligaments back to bone), heart cath x3 (no stents), insertion of peritoneal catheter, Removal of benign cyst from neck, colonoscopy. Past Anesthesia/Blood Transfusion Reactions: No Reported Reaction Past Psychological History: No Psychological Hx Reported Additional Psychological History / Comment(s): Pt resides with his spouse. He has a walker. He no longer drives, his spouse can drive. pt was at [facility] for rehab prior to admit 10/29/2016 Smoking Status: Former smoker Past Alcohol Use History: None Reported Additional Past Alcohol Use History / Comment(s): started smoking age 13, quit in 2016 Past Drug Use History: None Reported Additional Drug Use History / Comment(s): . - Past Family History Mother Family Medical History: Cancer Additional Family Medical History / Comment(s): Mother of lung cancer at 86 yrs of age. Father Family Medical History: Cancer Additional Family Medical History / Comment(s): Patient has 2 brothers and 2 sisters which patient states are in good health. Medications and Allergies Home Medications Medication Instructions Recorded Confirmed Type Aspirin 81 mg PO DAILY@1700 12/21/15 10/29/16 History Ergocalciferol [Vitamin D2 50,000 unit PO Q14D 12/21/15 10/29/16 History (DRISDOL)] Ranolazine [Ranexa] 500 mg PO BID 12/21/15 10/29/16 History Sevelamer [Renvela] 800 mg PO TID 12/21/15 10/29/16 History Tamsulosin HCl [Flomax] 0.4 mg PO DAILY 12/21/15 10/29/16 History Nitroglycerin Sl Tabs [Nitrostat] 0.4 mg SUBLINGUAL Q5M PRN 02/16/16 10/29/16 History Allopurinol [Zyloprim] 200 mg PO HS 06/14/16 10/29/16 History Pramipexole [Mirapex] 1 mg PO BID 06/14/16 10/29/16 History Rosuvastatin Calcium [Crestor] 5 mg PO DAILY 06/14/16 10/29/16 History Imatinib Mesylate [Gleevec] 200 mg PO BID 08/20/16 10/29/16 History Cinacalcet [Sensipar] 30 mg PO MOWEFR 09/07/16 10/29/16 History Magnesium Oxide [Mag-Ox] 400 mg PO BID 09/07/16 10/29/16 History Acetaminophen Tab [Tylenol] 650 mg PO Q6HR PRN 10/21/16 10/29/16 History Bisacodyl [Dulcolax] 10 mg RECTAL DAILY PRN 10/21/16 10/29/16 History Darbepoetin Richy [Aranesp] 100 mcg SQ Q7D 10/21/16 10/29/16 History Folic Acid-Vit B Complex-Vit C 1 cap PO DAILY@1700 10/21/16 10/29/16 History [Nephrocaps] INSULIN LISPRO (humaLOG) [humaLOG See Protocol SQ ACHS 10/21/16 10/29/16 History (formulary)] Levothyroxine Sodium [Synthroid] 300 mcg PO MOTUWETHFRSA 10/21/16 10/29/16 History Levothyroxine Sodium [Synthroid] 450 mcg PO LEON 10/21/16 10/29/16 History Magnesium Hydroxide [Milk of 2,400 mg PO BID 10/21/16 10/29/16 History Magnesia] Midodrine HCl [ProAmatine] 10 mg PO AC-TID 10/21/16 10/29/16 History Midodrine [ProAmatine] 10 mg PO TUTHSA 10/21/16 10/29/16 History Na Phos,M-B/Na Phos,Di-Ba [Fleet 133 ml RECTAL DAILY PRN 10/21/16 10/29/16 History Adult] Sulfamethox-Tmp 800-160Mg [Bactrim 1 tab PO Q12HR 10/21/16 10/29/16 History DS 800-160 mg] Warfarin [Coumadin] 2.5 mg PO SUMOTUTHSA 10/21/16 10/29/16 History Warfarin [Coumadin] 5 mg PO WEFR 10/21/16 10/29/16 History Lanthanum Carbonate [Fosrenol] 1,000 mg PO DIRECTED 10/22/16 10/29/16 History Nystatin 100,000 Unit/ml Susp 5 ml PO QID 10/29/16 10/29/16 History [Mycostatin Oral Susp] Allergies Allergy/AdvReac Type Severity Reaction Status Date / Time No Known Allergies Allergy Verified 10/29/16 18:35 Physical Exam Vitals: Vital Signs Temp Pulse Pulse Resp BP BP Pulse Ox 10/30/16 12:00 98.5 F 90 20 102/51 91 L 10/30/16 08:00 98.5 F 89 18 98/50 93 L 10/30/16 05:26 89 19 107/51 96 10/30/16 01:14 61 19 114/58 96 Intake and Output 10/29/16 10/30/16 10/30/16 22:59 06:59 14:59 Output Total 0 0 Balance 0 0 Output: Urine 0 0 Other: Voiding Method Diaper Diaper Incontinent Incontinent Weight 113.398 kg 113.398 kg Patient Weight 10/31/16 06:59 Weight 113.398 kg - Constitutional General appearance: no average body habitus, cooperative, disheveled, no mild distress, no morbidly obese, no acute distress, no obese, no severe distress, no thin - EENT Eyes: no abnormal pupil, no anicteric sclerae, no disc margins sharp, no edentulous, no EOMI, no PERRLA, no fundus normal, no photophobia, no dentition normal, no poor dentition, no ptosis, no scleral icterus, normal appearance ENT: hard of hearing, no hearing grossly normal, no NA/AT, normal oropharynx, no other, no pharyngeal erythema, no thrush, no tonsillar exudates, no tonsillar swelling Ears: bilateral: normal - Neck Neck: no lymphadenopathy, normal ROM, no other, no rigidity, no stridor, no thyromegaly Carotids: bilateral: upstroke normal, upstroke delayed Thyroid: bilateral: normal size - Respiratory Respiratory: bilateral: diminished, dullness, rales, rhonchi, wheezing, prolonged expiration - Cardiovascular Rhythm: irregularly irregular Heart sounds: normal: S1, S2 Abnormal Heart Sounds: systolic murmur, S3 Gallop - Gastrointestinal General gastrointestinal: no absent bowel sounds, no decreased bowel sounds, distended, no hepatomegaly, no hyperactive bowel sounds, normal bowel sounds, no organomegaly, no rigid, no scaphoid, soft, no splenomegaly, no tenderness, no umbilical hernia, no ventral hernia - Integumentary Gangrene in the left side involving second third fourth and fifth toe to the middle part of the foot. Gangrene of the right foot involving the second toe entirely. Integumentary: no calor, cellulitis, cyanotic, no decreased turgor, flushed, no jaundiced, normal, no normal turgor, pale, rash, no ulcer - Neurologic Neurologic: CNII-XII intact - Musculoskeletal Musculoskeletal: no gait normal, no generalized weakness, no strength equal bilaterally, no right sided weakness, no left sided weakness - Psychiatric Psychiatric: A&O x's 3 Results CBC & Chem 7: 10/29/16 19:25 10/29/16 19:25 Labs: Abnormal Lab Results - Last 24 Hours (Table) 10/30/16 10/30/16 10/30/16 Range/Units 01:21 05:48 07:22 POC Glucose (mg/dL) 104 H (75-99) mg/dL Total Creatine Kinase 221 H 235 H (55-170) U/L CK-MB (CK-2) 6.5 H* 5.9 H* (0.0-2.4) ng/mL Troponin I 0.202 H* 0.189 H* (0.000-0.034) ng/mL 10/30/16 Range/Units 12:39 POC Glucose (mg/dL) 110 H (75-99) mg/dL Total Creatine Kinase (55-170) U/L CK-MB (CK-2) (0.0-2.4) ng/mL Troponin I (0.000-0.034) ng/mL Thrombosis Risk Factor Assmnt - DVT/VTE Prophylaxis DVT/VTE Prophylaxis: Pharmacologic Prophylaxis ordered - Choose All That Apply Any of the Below Risk Factors Present?: Yes Each Factor Represents 1 point: Abnormal pulmonary function (COPD), Obesity ( BMI >25) Other Risk Factors: Yes Each Risk Factor Represents 2 Points: Age 61-74 years Other congenital or acquired thrombophilia - If yes, enter type in comment: No Thrombosis Risk Factor Assessment Total Risk Factor Score: 4 Thrombosis Risk Factor Assessment Level: Moderate Risk Assessment and Plan Plan: 1 change mental status: Most likely from sepsis, pain, worsening hypoxia and multiple other medical problem could be medication side effect culture was done patient be treated for his infected toes continue current management consult infectious disease and vascular. 2 worsening gangrene of the left foot and the right as well left foot gangrene involved for toes and spreading in the leg become slightly bit worse since last time patient will be evaluated by vascular and with his persistent pain might need to go for amputation. 3 sepsis source of infection is any clear so far, patient had a blood culture pending continue IV antibiotic continue current treatment management for now we' ll consult infectious disease. 4 elevated troponin: With most likely non-ST WA with possible troponin leak consult cardiology continue current management for now if recurrent episode of arrhythmia or any abnormal finding a Chin might require further study before his amputation as well. 5 diabetes: Continue patient on insulin continue Accu-Chek with sliding scales coverage. 6 end-stage renal disease: Patient will be going for hemodialysis today via temporary dialysis catheter and the subclavian area. 7 COPD: Continue mixup with graft along with Pulmicort for now. 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 9 A. fib with RVR: Patient is doing well pulse rates under control continue patient on warfarin 5 alternating to 2.5 mg, PT/INR be done daily. 10 BPH: Has been on Flomax 0.4 mg daily. 11 recent left hip fracture post-ORIF will consult orthopedic another x-ray of the hip will be done patient has been on physical therapy still no weight bearing on the hip area. 12 hypothyroidism: Has been on levothyroxine 300 g daily except for 150 g on Saturday. 13 hypotension predialysis: Patient is on midodrine and before dialysis. 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 CODE STATUS: Full discussion with the and Eleanor himself patient wished to be DO NOT RESUSCITATE. DVT prophylaxis: On warfarin. GI prophylaxis: Patient is on omeprazole 20 mg daily. Expectation from this admission: Patient be in the hospital for more than 2 nights.
[2016-10-31] MEDS: INSULIN LISPRO (humaLOG) 300 UNIT/3 ML VIAL SQ SCH ×8 (00:15→22:39)
[2016-10-31] MEDS: MAGNESIUM OXIDE 400 MG TAB PO SCH ×2 (00:20→10:40)
[2016-10-31] MEDS: ALLOPURINOL 100 MG TAB PO SCH ×2 (00:20→22:39)
[2016-10-31] MEDS: MAGNESIUM HYDROXIDE 2,400 MG/10 ML CUP PO SCH ×2 (00:20→10:28)
[2016-10-31] MEDS: NYSTATIN 100,000 UNIT/ML SUSP 500,000 UNIT/5 ML CUP PO SCH ×5 (00:21→22:40)
[2016-10-31] MEDS: PREGABALIN 50 MG CAP PO SCH ×2 (00:21→22:40)
[2016-10-31] MEDS: PRAMIPEXOLE 1 MG TAB PO SCH ×3 (00:21→22:39)
[2016-10-31] MEDS: RANOLAZINE 500 MG TAB.ER.12H PO SCH ×3 (00:21→22:40)
[2016-10-31] MEDS: SULFAMETHOX-TMP 800-160MG 1 EACH TAB PO SCH ×3 (00:21→22:40)
[2016-10-31] MEDS: HYDROcodone/APAP 5-325MG 1 EACH TAB PO PRN (00:25)
[2016-10-31 06:04] LABS: Glucose,Whole Blood 172 mg/dL (75-99)
[2016-10-31 06:06] LABS: Anisocytosis Slight; Basophils % (A) 0 %; CH 29.8; CHCM 30.2; Eosinophils # (A) 0.1 k/uL (0-0.7); Eosinophils % (A) 1 %; HCT 24.7 % (39.0-53.0); HGB 7.6 gm/dL (13.0-17.5); Hypochromasia Marked; Luc % (Auto) 1; Lymphocytes # (A) 0.7 k/uL (1.0-4.8); Lymphocytes % (A) 7 %; MCH 30.6 pg (25.0-35.0); MCHC 30.8 g/dL (31.0-37.0); MCV 99.3 fL (80.0-100.0); Macrocytosis Slight; Mean Platelet Volume 7.1; Monocytes # (A) 0.4 k/uL (0-1.0); Monocytes % (A) 5 %; Neutrophils # (A) 8.3 k/uL (1.3-7.7); Neutrophils % (A) 86 %; RBC 2.48 m/uL (4.30-5.90); RDW 16.8 % (11.5-15.5); WBC 9.6 k/uL (3.8-10.6); WBC (Perox) 10.32
[2016-10-31 06:14] LABS: INR 4.3 (<1.1); Prothrombin Time 42.3 sec (9.0-12.0)
[2016-10-31 06:27] LABS: Calcium 6.8 mg/dL (8.4-10.2); Total Bilirubin 0.5 mg/dL (0.2-1.3); Total Protein 4.7 g/dL (6.3-8.2)
[2016-10-31] MEDS: PANTOPRAZOLE 40 MG TABLET PO SCH (06:53)
[2016-10-31] MEDS: MIDODRINE 5 MG TAB PO SCH ×3 (06:53→17:43)
[2016-10-31] MEDS: LEVOTHYROXINE 100 MCG TAB PO SCH (06:54)
[2016-10-31] MEDS: SEVELAMER 800 MG TAB PO SCH ×3 (06:54→17:44)
[2016-10-31] MEDS ORDERED: DEXTROSE 5% IN WATER 100 ML with AMIODARONE 150 MG IV ONE (08:00)
[2016-10-31] MEDS: IPRATROPIUM-ALBUTEROL 3 ML NEB INHALATION SCH ×4 (08:22→19:47)
[2016-10-31] MEDS: SYMBICORT 160-4.5 MCG INHALER INHALATION SCH ×2 (08:23→19:58)
[2016-10-31] MEDS: AMIODARONE 450 MG in DEXTROSE 5% IN WATER 250 ML IV SCH ×4 (08:52→17:41)
[2016-10-31] MEDS ORDERED: VANCOMYCIN 1,750 MG in SODIUM CHLORIDE 0.9% 250 ML IVPB ONE (10:00)
[2016-10-31] MEDS: LISINOPRIL 2.5 MG TAB PO SCH (10:27)
[2016-10-31] MEDS: ISOSORBIDE MONONITRATE ER 15 MG TAB PO SCH (10:27)
[2016-10-31] MEDS: TAMSULOSIN 0.4 MG CAP.ER.24H PO SCH (10:39)
[2016-10-31] MEDS: FUROSEMIDE 80 MG TAB PO SCH ×2 (10:40→17:42)
[2016-10-31] MEDS: METOPROLOL TARTRATE 12.5 MG TAB PO SCH (10:40)
[2016-10-31 11:35] LABS: Glucose,Whole Blood 99 mg/dL (75-99)
--- NOTE | 2016-10-31 12:35 | P.PN ---
Subjective Principal diagnosis: Cellulitis This is a pleasant 66-year-old gentleman with history of hypertension , hyperlipidemia, end-stage renal disease on dialysis, diastolic congestive heart failure chronic in nature, diabetes, hyperlipidemia, hypothyroidism, COPD , atrial fibrillation, obesity, PVD, obstructive sleep apnea, CML, prior pacemaker implantation, coronary artery disease with unsuccessful angioplasty of the right coronary artery in the past, who presented to the hospital with gangrene of the left foot and evidence of cellulitis. The patient is scheduled to undergo amputation of the left foot by Dr. Stewart and a cardiology consultation was requested for clearance. The patient was seen in consultation yesterday by Dr. Finn, he had an echo performed in August which revealed normal left ventricular systolic function with mitral regurgitation and moderate mitral stenosis. He was also noted to have mild troponin abnormality this admission which is likely secondary to his abnormal renal function. Clinically at this time patient is not in congestive heart failure. He is considered high risk, however needs this lifesaving surgery. His morning on the monitor patient was noted to have a run of nonsustained ventricular tachycardia and was initiated on IV amiodarone drip. Potassium level IV.0, BUN 38, creatinine 4.2. INR 4.3. Magnesium level 2.4. Objective - Vital Signs Vital signs: Vital Signs Temp 97.8 F 10/31/16 08:00 Pulse 92 10/31/16 11:40 Resp 20 10/31/16 08:00 BP 91/53 10/31/16 10:03 Pulse Ox 98 10/31/16 08:24 Intake & Output 10/30/16 10/31/16 10/31/16 18:59 06:59 18:59 Intake Total 540 650 236 Output Total 0 0 Balance 540 650 236 Weight 113.398 kg 103 kg Intake: Oral 540 650 236 Output: Urine 0 0 Other: Voiding Method Diaper Diaper Incontinent Incontinent # Bowel Movements 1 - Exam PHYSICAL EXAMINATION: HEENT: Head is atraumatic, normocephalic. Pupils equal, round. Neck is supple. There is no elevated jugular venous pressure. HEART EXAMINATION: Heart S1 and S2 systolic murmur is heard. CHEST EXAMINATION: Lungs reveal diminished air entry bilaterally with scattered rhonchi and wheezing throughout. ABDOMEN: Soft, nontender. Bowel sounds are heard. No organomegaly noted. EXTREMITIES: Gangrene in the left side involving second, third, fourth, and fifth toe to the middle part of the foot.. NEUROLOGIC patient is awake, alert and oriented -3. . - Labs CBC & Chem 7: 10/31/16 05:49 10/31/16 05:49 Labs: Abnormal Lab Results - Last 24 Hours (Table) 10/30/16 10/30/16 10/31/16 Range/Units 12:39 16:30 05:49 RBC (4.30-5.90) m/uL Hgb (13.0-17.5) gm/dL Hct (39.0-53.0) % MCHC (31.0-37.0) g/dL RDW (11.5-15.5) % Neutrophils # (1.3-7.7) k/uL Lymphocytes # (1.0-4.8) k/uL PT (9.0-12.0) sec BUN 38 H (9-20) mg/dL Creatinine 4.29 H (0.66-1.25) mg/dL Glucose 132 H (74-99) mg/dL POC Glucose (mg/dL) 110 H 156 H (75-99) mg/dL Calcium 6.8 L (8.4-10.2) mg/dL Magnesium (1.6-2.3) mg/dL Alkaline Phosphatase 144 H (38-126) U/L Total Protein 4.7 L (6.3-8.2) g/dL Albumin 2.4 L (3.5-5.0) g/dL 10/31/16 10/31/16 10/31/16 Range/Units 05:49 05:49 05:49 RBC 2.48 L (4.30-5.90) m/uL Hgb 7.6 L (13.0-17.5) gm/dL Hct 24.7 L (39.0-53.0) % MCHC 30.8 L (31.0-37.0) g/dL RDW 16.8 H (11.5-15.5) % Neutrophils # 8.3 H (1.3-7.7) k/uL Lymphocytes # 0.7 L (1.0-4.8) k/uL PT 42.3 H (9.0-12.0) sec BUN (9-20) mg/dL Creatinine (0.66-1.25) mg/dL Glucose (74-99) mg/dL POC Glucose (mg/dL) (75-99) mg/dL Calcium (8.4-10.2) mg/dL Magnesium 2.4 H (1.6-2.3) mg/dL Alkaline Phosphatase (38-126) U/L Total Protein (6.3-8.2) g/dL Albumin (3.5-5.0) g/dL 10/31/16 Range/Units 06:02 RBC (4.30-5.90) m/uL Hgb (13.0-17.5) gm/dL Hct (39.0-53.0) % MCHC (31.0-37.0) g/dL RDW (11.5-15.5) % Neutrophils # (1.3-7.7) k/uL Lymphocytes # (1.0-4.8) k/uL PT (9.0-12.0) sec BUN (9-20) mg/dL Creatinine (0.66-1.25) mg/dL Glucose (74-99) mg/dL POC Glucose (mg/dL) 172 H (75-99) mg/dL Calcium (8.4-10.2) mg/dL Magnesium (1.6-2.3) mg/dL Alkaline Phosphatase (38-126) U/L Total Protein (6.3-8.2) g/dL Albumin (3.5-5.0) g/dL Assessment and Plan (1) Mental status change Status: Acute (2) Gangrene Status: Acute (3) Sepsis Status: Acute (4) Diabetes Status: Acute (5) ESRD (end stage renal disease) on dialysis Status: Acute (6) Paroxysmal a-fib Status: Acute (7) CML (chronic myelocytic leukemia) Status: Acute (8) Hypothyroid Status: Acute (9) Elevated troponin Status: Acute (10) NSVT (nonsustained ventricular tachycardia) Status: Acute Plan: Patient was noted this morning to have a run of nonsustained ventricular tachycardia and was initiated on IV amiodarone. Recent echocardiogram with Doppler study performed in August revealed normal left ventricular systolic function. Dr Farrell may proceed with surgery on this patient understanding that he has a high risk. DNP note has been reviewed, I agree with a documented findings and plan of care. Patient was seen and examined.
[2016-10-31] MEDS: ATORVASTATIN 10 MG TAB PO SCH (12:36)
[2016-10-31] MEDS: CINACALCET 30 MG TAB PO SCH (12:36)
[2016-10-31] MEDS ORDERED: WARFARIN 2.5 MG TAB PO SCH (12:58)
--- NOTE | 2016-10-31 13:47 | CDI ---
In responding to this query, please exercise your independent professional judgment. The [facility] Coding Staff and Clinical Documentation Specialists appreciate your assistance in clarifying documentation, maintaining compliance with coding guidelines, accurately documenting patients condition and capturing severity of illness. The fact that a question is asked does not imply that any particular answer is desired or expected. Communication forms are a method of clarifying documentation and are not made part of the Legal Health Record. Thank you in advance for your clarification. Last Revision, November 2015 Ralf Nicholas [address] [facility] [place] [address] Documentation Clarification Form Date: 10/31/2016 1:38:00 PM From: Brittany Bishop Admit Date: 10/29/2016 9:52:00 PM Patient Name: Fracisco Womack Visit Number: [id number] Dr. Hugh Lennon Altered mental status was documented in the H&P. Patient history/risk factors: Gangrene bilateral feet Sepsis Pain medications - on Sh[place]ola ESRD Worsening hypoxia NSTEMI Recent hip fracture with ORIF Clinical Indicators: Labs: hgb 7.2, bun 52, cr 5.23, gfr 11, ca 6.9, trop 0.214, prot 4.6, alb 2.3 Vitals: temp 99.2, hr 85, rr 20, bp 118/58, sats 88% on room air X Ray chest: CHF, pulmonary congestion CT brain: negative Treatment: Updrafts IV Vancomycin x1, now PO Bactrim In your professional opinion, please clarify the etiology of the altered mental status, if known. Delirium (specify cause): Dementia (if know, specify Type and if with/without Behavioral Disturbance) Encephalopathy (specify Type and Underlying Medical Illness) Other condition (please specify) Unable to determine Please document in your progress notes and discharge summary in order to capture severity of illness and risk of mortality. Include clinical findings that support your diagnosis. FYI: Press F11 to launch patient chart. Place X here if this finding has no clinical significance, is not applicable or if you are not able to provide any additional documentation. MTDD
--- NOTE | 2016-10-31 14:58 | P.PN ---
Subjective Principal diagnosis: sepsis, worsening gangrene of the toes, intractable pain not controlled, altered mental status. 66-year-old male one of Dr. Erickson's patient with multiple medical problem was known to have end-stage renal disease on hemodialysis 3 times a week history of CAD, PVD with gangrene change of bilateral lower extremity more than the left on the right side also has history of diabetes history of COPD and carbon dioxide retention as well. Patient was hospitalized few weeks ago for rapid left hip fracture ended up requiring ORIF with Dr. Grady and was transferred to [facility] still have limited weightbearing on the hip area watch his in [facility] developed to have significant mental status change along with intractable worsening pain and discomfort with low-grade temperature and hypotension with symptoms more consistent with sepsis possible worsening condition with his gangrenous toes with infection might be somewhere else patient ended up coming to the emergency department at [facility] where was seen and evaluated his workup initially did not show whole a lot of a change but continued to have significant altered mental status along with worsening gangrene of the left side. Dr. Farrell was contacted with his current condition been seen at the wound clinic decided to admit patient to the hospital start him on IV antibiotic and evaluated while he is in the hospital for potential need for urgent amputation. Patient has's morning run of V. tach he was placed on amiodarone drip patient surgery scheduled for Saturday in the meanwhile his warfarin will be held patient be seen pulmonary as well he is using BiPAP as outpatient and does not use it in a while but will consult pulmonary patient will be tuned up before his surgery he will be on BiPAP as well. Objective - Vital Signs Vital signs: Vital Signs Temp 99.2 F 10/31/16 12:00 Pulse 90 10/31/16 12:00 Resp 20 10/31/16 12:00 BP 90/41 10/31/16 12:00 Pulse Ox 95 10/31/16 12:00 Intake & Output 10/30/16 10/31/16 10/31/16 18:59 06:59 18:59 Intake Total 540 650 556 Output Total 0 0 Balance 540 650 556 Weight 113.398 kg 103 kg 103 kg Intake: Oral 540 650 556 Output: Urine 0 0 Other: Voiding Method Diaper Diaper Diaper Incontinent Incontinent Incontinent # Bowel Movements 1 - Constitutional General appearance: Present: cooperative, disheveled, no acute distress, obese. Absent: average body habitus, mild distress, morbidly obese, severe distress, thin - EENT Eyes: Present: normal appearance. Absent: abnormal pupil, anicteric sclerae, disc margins sharp, edentulous, EOMI, PERRLA, fundus normal, photophobia, dentition normal, poor dentition, ptosis, scleral icterus ENT: Present: normal oropharynx. Absent: hard of hearing, hearing grossly normal, NA/AT, other, pharyngeal erythema, thrush, tonsillar exudates, tonsillar swelling Ears: bilateral: normal - Neck Neck: Present: normal ROM Carotids: bilateral: upstroke normal, upstroke delayed Thyroid: bilateral: normal size, enlarged - Respiratory Respiratory: bilateral: diminished, dullness, rales, rhonchi, wheezing, prolonged expiration - Cardiovascular Rhythm: irregularly irregular Heart sounds: normal: S1, S2 Abnormal Heart Sounds: Present: systolic murmur, S3 Gallop - Gastrointestinal General gastrointestinal: Present: decreased bowel sounds, distended, hepatomegaly, normal bowel sounds, soft. Absent: absent bowel sounds, hyperactive bowel sounds, organomegaly, rigid, scaphoid, splenomegaly, tenderness, umbilical hernia, ventral hernia - Integumentary Integumentary Comment(s): Four toes Gangrene in the left leg and 1 toe gangrene in the right side patient is awaiting for amputation on Saturday. Integumentary: Present: cellulitis, cyanotic, normal, normal turgor, pale, rash. Absent: calor, decreased turgor, flushed, jaundiced, ulcer - Neurologic Neurologic: Present: CNII-XII intact - Musculoskeletal Musculoskeletal: Present: generalized weakness, strength equal bilaterally, right sided weakness. Absent: gait normal, left sided weakness - Psychiatric Psychiatric: Present: A&O x's 3, appropriate affect. Absent: intact judgment & insight - Labs CBC & Chem 7: 10/31/16 05:49 10/31/16 05:49 Labs: Abnormal Lab Results - Last 24 Hours (Table) 10/30/16 10/31/16 10/31/16 Range/Units 16:30 05:49 05:49 RBC 2.48 L (4.30-5.90) m/uL Hgb 7.6 L (13.0-17.5) gm/dL Hct 24.7 L (39.0-53.0) % MCHC 30.8 L (31.0-37.0) g/dL RDW 16.8 H (11.5-15.5) % Neutrophils # 8.3 H (1.3-7.7) k/uL Lymphocytes # 0.7 L (1.0-4.8) k/uL PT (9.0-12.0) sec BUN 38 H (9-20) mg/dL Creatinine 4.29 H (0.66-1.25) mg/dL Glucose 132 H (74-99) mg/dL POC Glucose (mg/dL) 156 H (75-99) mg/dL Calcium 6.8 L (8.4-10.2) mg/dL Magnesium (1.6-2.3) mg/dL Alkaline Phosphatase 144 H (38-126) U/L Total Protein 4.7 L (6.3-8.2) g/dL Albumin 2.4 L (3.5-5.0) g/dL 10/31/16 10/31/16 10/31/16 Range/Units 05:49 05:49 06:02 RBC (4.30-5.90) m/uL Hgb (13.0-17.5) gm/dL Hct (39.0-53.0) % MCHC (31.0-37.0) g/dL RDW (11.5-15.5) % Neutrophils # (1.3-7.7) k/uL Lymphocytes # (1.0-4.8) k/uL PT 42.3 H (9.0-12.0) sec BUN (9-20) mg/dL Creatinine (0.66-1.25) mg/dL Glucose (74-99) mg/dL POC Glucose (mg/dL) 172 H (75-99) mg/dL Calcium (8.4-10.2) mg/dL Magnesium 2.4 H (1.6-2.3) mg/dL Alkaline Phosphatase (38-126) U/L Total Protein (6.3-8.2) g/dL Albumin (3.5-5.0) g/dL Assessment and Plan Plan: 1 change mental status: Most likely from sepsis, pain, worsening hypoxia and multiple other medical problem could be medication side effect culture was done patient be treated for his infected toes continue current management consult infectious disease and vascular. 2 worsening gangrene of the left foot and the right as well left foot gangrene involved for toes and spreading in the leg become slightly bit worse since last time patient will be evaluated by vascular and with his persistent pain might need to go for amputation. Final decision with vascular is to do left above- knee amputation and right second toe amputation as well which is scheduled for Saturday currently. 3 sepsis source of infection is any clear so far, patient had a blood culture pending continue IV antibiotic continue current treatment management for now we' ll consult infectious disease. Infectious disease consult is in order and continue current antibiotic for now. 4 ventricular tachycardia: Patient was started on amiodarone drip consult cardiology continue patient on a monitoring tech, if persistent symptom patient might require an ICD. 5 diabetes: Continue patient on insulin continue Accu-Chek with sliding scales coverage. 6 end-stage renal disease: Patient will be going for hemodialysis today via temporary dialysis catheter and the subclavian area. 7 COPD: Continue mixup with graft along with Pulmicort for now. 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 9 A. fib with RVR: Patient is doing well pulse rates under control continue patient on warfarin 5 alternating to 2.5 mg, PT/INR be done daily. 10 BPH: Has been on Flomax 0.4 mg daily. 11 recent left hip fracture post-ORIF will consult orthopedic another x-ray of the hip will be done patient has been on physical therapy still no weight bearing on the hip area. 12 hypothyroidism: Has been on levothyroxine 300 g daily except for 150 g on Saturday. 13 hypotension predialysis: Patient is on midodrine and before dialysis. 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 CODE STATUS: Full discussion with the and Eleanor himself patient wished to be DO NOT RESUSCITATE. DVT prophylaxis: On warfarin. GI prophylaxis: Patient is on omeprazole 20 mg daily.
[2016-10-31 15:38] LABS: % Iron Saturation 14.9 % (20-50)
[2016-10-31 17:06] LABS: Glucose,Whole Blood 106 mg/dL (75-99)
[2016-10-31] MEDS: ASPIRIN 81 MG CHEW PO SCH (17:42)
[2016-10-31] MEDS: FOLIC ACID-VIT B COMPLEX-VIT C 1 CAP PO SCH (17:43)
--- NOTE | 2016-10-31 17:57 | P.PN ---
Progress Note - Text 66 old white male, history of diabetes, history of peripheral vascular disease, history of chronic renal failure on dialysis, patient has a gangrene of the left foot toes and and also some thickening changes noted on the plantar dorsal aspect of the foot also there is a gangrene changes noted in the right foot second toe patient had angiogram done patient has a no flow noted to the left foot and the there's some collaterals noted options were discussed with the family patient was scheduled to have a left above-knee amputation and also possible right foot second toe amputation today patient is a very confused and he has low-grade fever patient is going to have her dialysis tomorrow. We're planning to this surgery on Saturday morning patient is high risk family understand if all okay we'll proceed on Saturday
--- NOTE | 2016-10-31 20:02 | PN ---
Patient is seen for followup for end-stage renal disease. He was admitted to the hospital with mental status changes and some shortness of breath yesterday. Patient was dialyzed. His mentation has improved. The [place] was also decreased. He has severe peripheral vascular disease with evidence of gangrene in the toes on the left foot as well as one toe on his right foot. At this time patient is scheduled for surgery by Dr. Farrell on Saturday. He is maintained on antibiotics. Patient has been having jerky movements. These did not improve with dialysis yesterday. On examination today, patient is awake, comfortable. He is not in any acute distress. Blood pressure has been slightly on the lower side running at about 90/41, temperature 100.8. EXAMINATION OF THE HEART: S1 and S2. EXAMINATION OF THE LUNGS: Bilateral breath sounds are heard. ABDOMEN: Soft, obese. Examination of lower extremities shows chronic skin changes with gangrenous changes in multiple toes on the left foot and one toe on the right foot. [employer] exam shows jerky movements in the upper extremities. Labs show sodium 139, potassium 4.0, BUN 38, serum creatinine 4.29. Hemoglobin at 7.6 g/dL. ASSESSMENT: 1. End-stage renal disease, on hemodialysis on a Saturday, , Saturday schedule as outpatient. Patient will be scheduled for hemodialysis tomorrow. 2. Anemia with no active bleeding noted, with most likely underlying resistance to Aranesp. I will transfuse 2 units packed RBCs with hemodialysis tomorrow in anticipation for surgery on Saturday. Patient will also be started on IV iron, as his iron saturation is at 14%. 3. Peripheral vascular disease with gangrene in most toes on the left foot and one toe on the right foot, scheduled for surgery on Saturday. 4. Myoclonic jerks. Medications are reviewed. I will discontinue the magnesium, as magnesium level was slightly on the high side at 2.4. 5. Hypotension. Patient is maintained on midodrine. 6. Chronic kidney disease bone mineral disorder. Continue with the Sensipar. 7. Atrial fibrillation and run of non-sustained ventricular tachycardia, maintained on amiodarone. PLAN: Discontinue Fleet's enema and magnesium hydroxide. Hemodialysis in a.m. Transfuse 2 units packed RBCs with dialysis tomorrow.
[2016-10-31 21:04] LABS: Glucose,Whole Blood 120 mg/dL (75-99)
[2016-11-01 06:34] LABS: INR 2.7 (<1.1); Prothrombin Time 26.2 sec (9.0-12.0)
[2016-11-01 06:35] LABS: Glucose,Whole Blood 110 mg/dL (75-99)
[2016-11-01 06:40] LABS: Anisocytosis Slight; Basophils % (A) 0 %; CH 29.5; CHCM 29.3; Eosinophils # (A) 0.1 k/uL (0-0.7); Eosinophils % (A) 1 %; HCT 23.6 % (39.0-53.0); HDW 3.04; HGB 7.1 gm/dL (13.0-17.5); Hypochromasia Marked; Luc # (Auto) 0.18; Luc % (Auto) 2; Lymphocytes # (A) 0.9 k/uL (1.0-4.8); Lymphocytes % (A) 8 %; MCH 30.3 pg (25.0-35.0); MCHC 29.9 g/dL (31.0-37.0); MCV 101.3 fL (80.0-100.0); Macrocytosis Slight; Mean Platelet Volume 7.6; Monocytes # (A) 0.6 k/uL (0-1.0); Monocytes % (A) 5 %; Neutrophils # (A) 10.2 k/uL (1.3-7.7); Neutrophils % (A) 85 %; RBC 2.33 m/uL (4.30-5.90); RDW 16.5 % (11.5-15.5); WBC (Perox) 11.81
[2016-11-01 06:47] LABS: Calcium 7.1 mg/dL (8.4-10.2); Magnesium 2.5 mg/dL (1.6-2.3); Potassium 4.6 mmol/L (3.5-5.1); Total Bilirubin 0.6 mg/dL (0.2-1.3); Total Protein 4.9 g/dL (6.3-8.2)
[2016-11-01] MEDS: AMIODARONE 450 MG in DEXTROSE 5% IN WATER 250 ML IV SCH ×4 (06:52→08:00)
[2016-11-01] MEDS: LEVOTHYROXINE 100 MCG TAB PO SCH (06:52)
[2016-11-01] MEDS: SEVELAMER 800 MG TAB PO SCH ×3 (06:53→17:07)
[2016-11-01] MEDS: INSULIN LISPRO (humaLOG) 300 UNIT/3 ML VIAL SQ SCH ×6 (06:53→17:07)
[2016-11-01] MEDS: MIDODRINE 5 MG TAB PO SCH ×6 (06:54→17:08)
[2016-11-01] MEDS: PANTOPRAZOLE 40 MG TABLET PO SCH (06:54)
[2016-11-01] MEDS: IPRATROPIUM-ALBUTEROL 3 ML NEB INHALATION SCH ×4 (07:35→21:19)
[2016-11-01] MEDS: SYMBICORT 160-4.5 MCG INHALER INHALATION SCH ×2 (07:35→21:20)
[2016-11-01] MEDS ORDERED: MIDODRINE 5 MG TAB PO ONE (09:50)
--- NOTE | 2016-11-01 10:05 | P.PN ---
Subjective Patient seen in follow-up for end-stage renal disease. He is maintained on hemodialysis on a Saturday schedule. He is currently undergoing hemodialysis however he is quite hypotensive with systolic blood pressure in the 70s. He did receive Midodrin this morning. Patient is not a very reliable historian. Vital signs are stable. General: The patient appeared well nourished and normally developed. HEENT: Head exam is unremarkable. Neck is without jugular venous distension. LUNGS: Lungs are clear to auscultation and percussion. Breath sounds decreased. HEART: Rate and Rhythm are regular. First and second heart sounds normal. No murmurs, rubs or gallops. ABDOMEN: Abdominal exam reveals normal bowel sounds. Non-tender and non- distended. No evidence of peritonitis. EXTREMITITES: No clubbing, cyanosis, or edema. Objective - Vital Signs Vital signs: Vital Signs Temp 97.2 F L 11/01/16 07:43 Pulse 80 11/01/16 07:49 Resp 18 11/01/16 07:43 BP 102/46 11/01/16 07:43 Pulse Ox 95 11/01/16 07:43 Intake & Output 10/31/16 11/01/16 11/01/16 18:59 06:59 18:59 Intake Total 1463.000 227.544 34 Output Total 0 Balance 1463.000 227.544 34 Weight 103 kg 106.3 kg Intake: IV 548 34 Amiodarone 450 mg In 198 34 Dextrose 5% in Water 250 ml @ 1 MG/MIN 34.53 mls/ hr IV .Q7H31M [facility] Rx#: [id number] Dextrose 5% in Water 100 100 ml @ 618 mls/hr IV .Q10M ONE with Amiodarone 150 mg Rx#:[id number] Vancomycin 1,750 mg In 250 Sodium Chloride 0.9% 250 ml @ 125 mls/hr IVPB ONCE ONE Rx#:[id number] Intake, IV Titration 259.000 227.544 Amount Amiodarone 450 mg In 259.000 227.544 Dextrose 5% in Water 250 ml @ 1 MG/MIN 34.53 mls/ hr IV .Q7H31M [facility] Rx#: [id number] Oral 656 Output: Urine 0 Other: Voiding Method Diaper Diaper Incontinent Incontinent - Labs CBC & Chem 7: 11/01/16 06:07 11/01/16 06:07 Labs: Abnormal Lab Results - Last 24 Hours (Table) 10/31/16 10/31/16 10/31/16 Range/Units 05:49 17:02 21:03 WBC (3.8-10.6) k/uL RBC (4.30-5.90) m/uL Hgb (13.0-17.5) gm/dL Hct (39.0-53.0) % MCV (80.0-100.0) fL MCHC (31.0-37.0) g/dL RDW (11.5-15.5) % Neutrophils # (1.3-7.7) k/uL Lymphocytes # (1.0-4.8) k/uL PT (9.0-12.0) sec Sodium (137-145) mmol/L BUN 38 H (9-20) mg/dL Creatinine 4.29 H (0.66-1.25) mg/dL Glucose 132 H (74-99) mg/dL POC Glucose (mg/dL) 106 H 120 H (75-99) mg/dL Calcium 6.8 L (8.4-10.2) mg/dL Magnesium (1.6-2.3) mg/dL Iron 22 L (49-181) ug/dL TIBC 148 L (261-462) ug/dL % Saturation 14.9 L (20-50) % AST (17-59) U/L Alkaline Phosphatase 144 H (38-126) U/L Total Protein 4.7 L (6.3-8.2) g/dL Albumin 2.4 L (3.5-5.0) g/dL Crossmatch 11/01/16 11/01/16 11/01/16 Range/Units 06:07 06:07 06:07 WBC 12.0 H (3.8-10.6) k/uL RBC 2.33 L (4.30-5.90) m/uL Hgb 7.1 L (13.0-17.5) gm/dL Hct 23.6 L (39.0-53.0) % MCV 101.3 H (80.0-100.0) fL MCHC 29.9 L (31.0-37.0) g/dL RDW 16.5 H (11.5-15.5) % Neutrophils # 10.2 H (1.3-7.7) k/uL Lymphocytes # 0.9 L (1.0-4.8) k/uL PT 26.2 H (9.0-12.0) sec Sodium 136 L (137-145) mmol/L BUN 48 H (9-20) mg/dL Creatinine 5.50 H* (0.66-1.25) mg/dL Glucose 106 H (74-99) mg/dL POC Glucose (mg/dL) (75-99) mg/dL Calcium 7.1 L (8.4-10.2) mg/dL Magnesium 2.5 H (1.6-2.3) mg/dL Iron (49-181) ug/dL TIBC (261-462) ug/dL % Saturation (20-50) % AST 90 H (17-59) U/L Alkaline Phosphatase 139 H (38-126) U/L Total Protein 4.9 L (6.3-8.2) g/dL Albumin 2.5 L (3.5-5.0) g/dL Crossmatch 11/01/16 11/01/16 Range/Units 06:23 07:01 WBC (3.8-10.6) k/uL RBC (4.30-5.90) m/uL Hgb (13.0-17.5) gm/dL Hct (39.0-53.0) % MCV (80.0-100.0) fL MCHC (31.0-37.0) g/dL RDW (11.5-15.5) % Neutrophils # (1.3-7.7) k/uL Lymphocytes # (1.0-4.8) k/uL PT (9.0-12.0) sec Sodium (137-145) mmol/L BUN (9-20) mg/dL Creatinine (0.66-1.25) mg/dL Glucose (74-99) mg/dL POC Glucose (mg/dL) 110 H (75-99) mg/dL Calcium (8.4-10.2) mg/dL Magnesium (1.6-2.3) mg/dL Iron (49-181) ug/dL TIBC (261-462) ug/dL % Saturation (20-50) % AST (17-59) U/L Alkaline Phosphatase (38-126) U/L Total Protein (6.3-8.2) g/dL Albumin (3.5-5.0) g/dL Crossmatch See Detail Assessment and Plan Plan: Assessment: #1. End-stage renal disease maintained on hemodialysis on a Saturday schedule. #2. Hypotension maintained on Midodrine. #3. Anemia of chronic kidney disease. Iron deficiency present. #4. Left toe gangrene. #5. Insulin-dependent diabetes mellitus. #6. Chronic kidney disease mineral bone disease. Plan: Hemodialysis today with ultrafiltration as tolerated. Will give him a 250 mL bolus. Transfuse 2 units of packed red blood cells with dialysis today in anticipation for surgery tomorrow. Continue with IV iron. Maintain aranesp. Magnesium level was slightly elevated. Magnesium supplementation has been discontinued.
[2016-11-01] MEDS: ATORVASTATIN 10 MG TAB PO SCH (10:10)
[2016-11-01] MEDS: NYSTATIN 100,000 UNIT/ML SUSP 500,000 UNIT/5 ML CUP PO SCH ×5 (10:11→21:45)
[2016-11-01] MEDS: LISINOPRIL 2.5 MG TAB PO SCH (10:11)
[2016-11-01] MEDS: ISOSORBIDE MONONITRATE ER 15 MG TAB PO SCH ×2 (10:12→15:15)
[2016-11-01] MEDS: FUROSEMIDE 80 MG TAB PO SCH ×3 (10:12→16:24)
[2016-11-01] MEDS: TAMSULOSIN 0.4 MG CAP.ER.24H PO SCH (10:13)
--- NOTE | 2016-11-01 10:23 | CDI ---
In responding to this query, please exercise your independent professional judgment. The [facility] Coding Staff and Clinical Documentation Specialists appreciate your assistance in clarifying documentation, maintaining compliance with coding guidelines, accurately documenting patients condition and capturing severity of illness. The fact that a question is asked does not imply that any particular answer is desired or expected. Communication forms are a method of clarifying documentation and are not made part of the Legal Health Record. Thank you in advance for your clarification. Last Revision, November 2015 Ralf Nicholas [address] [facility] [place] [address] Documentation Clarification Form Date: 10/31/2016 1:38:00 PM From: Brittany Bishop Admit Date: 10/29/2016 9:52:00 PM Patient Name: Fracisco Womack Visit Number: [id number] Dr. Hugh Lennon Altered mental status was documented in the H&P. Patient history/risk factors: Gangrene bilateral feet Sepsis Pain medications - on [place] ESRD Worsening hypoxia NSTEMI Recent hip fracture with ORIF Clinical Indicators: Labs: hgb 7.2, bun 52, cr 5.23, gfr 11, ca 6.9, trop 0.214, prot 4.6, alb 2.3 Vitals: temp 99.2, hr 85, rr 20, bp 118/58, sats 88% on room air X Ray chest: CHF, pulmonary congestion CT brain: negative Treatment: Updrafts IV Vancomycin x1, now PO Bactrim In your professional opinion, please clarify the etiology of the altered mental status, if known. Delirium (specify cause): Dementia (if know, specify Type and if with/without Behavioral Disturbance) Encephalopathy (specify Type and Underlying Medical Illness) Other condition (please specify) Unable to determine Please document in your progress notes and discharge summary in order to capture severity of illness and risk of mortality. Include clinical findings that support your diagnosis. FYI: Press F11 to launch patient chart. Place X here if this finding has no clinical significance, is not applicable or if you are not able to provide any additional documentation. MTDD
--- NOTE | 2016-11-01 10:44 | P.CNOR ---
History of Present Illness - [facility] Consult date: 11/01/16 Requesting physician: Mathieu Grady Consult reason: other (Status post IT nail for left hip fracture) History of present illness: Patient is seen at bedside this morning 11/01/2015 in consultation for his left hip where he is status post IT nail insertion per Dr. Grady performed on . He was readmitted recently for altered mental status and gangrenous distal lower extremities where he is pending going to the OR for left AKA and right toe amputations per Dr. Farrell. He continues to have altered mental status as he is on dialysis and is not awake, alert or oriented this morning. Further review of systems and history is unobtainable. Review of Systems ROS unobtainable: due to mental status Past Medical History Past Medical History: Atrial Fibrillation, Coronary Artery Disease (CAD), Cancer , Chest Pain / Angina, COPD, CVA/TIA, Diabetes Mellitus, Dialysis, Eye Disorder , Hyperlipidemia, Hypertension, Myocardial Infarction ([place]), Prostate Disorder, Renal Disease, Sleep Apnea/CPAP/BIPAP, Thyroid Disorder Additional Past Medical History / Comment(s): Pt recently admitted to [facility] on with cellulitis bilateral lower extremities, toe cyanosis, mild acute/ chronic CHF. Other HX: IDDM type II-insulin pump, ESRD dialysis-peritoneal , nephrolithiasis, chronic anemia, leukemia-CML, metabolic bone disease, abnormal [place] chromosome, "slight stroke"-no deficits, htn cardiovascular disease, chronic CHF, PAD, current discolored toes, chronic low back pain-nerve damage from injury, SAMANTHA doesn't wear his bipap, diabetic neuropathy bilateral legs and feet, diabetic retinopathy, gout, DDD, diverticulosis, vertigo, RLS, BPH. Last Myocardial Infarction Date:: unknown History of Any Multi-Drug Resistant Organisms: None Reported Past Surgical History: Back Surgery, Cholecystectomy, Heart Catheterization, Orthopedic Surgery Additional Past Surgical History / Comment(s): 10/21/15 Unsuccessful PTCA proximal RCA, laminectomy, L knee surgery (stapled ligaments back to bone), heart cath x3 (no stents), insertion of peritoneal catheter, Removal of benign cyst from neck, colonoscopy. Past Anesthesia/Blood Transfusion Reactions: No Reported Reaction Past Psychological History: No Psychological Hx Reported Additional Psychological History / Comment(s): Pt resides with his spouse. He has a walker. He no longer drives, his spouse can drive. pt was at [facility] for rehab prior to admit 10/29/2016 Smoking Status: Former smoker Past Alcohol Use History: None Reported Additional Past Alcohol Use History / Comment(s): started smoking age 13, quit in 2016 Past Drug Use History: None Reported Additional Drug Use History / Comment(s): . - Past Family History Mother Family Medical History: Cancer Additional Family Medical History / Comment(s): Mother of lung cancer at 86 yrs of age. Father Family Medical History: Cancer Additional Family Medical History / Comment(s): Patient has 2 brothers and 2 sisters which patient states are in good health. Medications and Allergies Home Medications Medication Instructions Recorded Confirmed Type Aspirin 81 mg PO DAILY@1700 12/21/15 10/29/16 History Ergocalciferol [Vitamin D2 50,000 unit PO Q14D 12/21/15 10/29/16 History (DRISDOL)] Ranolazine [Ranexa] 500 mg PO BID 12/21/15 10/29/16 History Sevelamer [Renvela] 800 mg PO TID 12/21/15 10/29/16 History Tamsulosin HCl [Flomax] 0.4 mg PO DAILY 12/21/15 10/29/16 History Nitroglycerin Sl Tabs [Nitrostat] 0.4 mg SUBLINGUAL Q5M PRN 02/16/16 10/29/16 History Allopurinol [Zyloprim] 200 mg PO HS 06/14/16 10/29/16 History Pramipexole [Mirapex] 1 mg PO BID 06/14/16 10/29/16 History Rosuvastatin Calcium [Crestor] 5 mg PO DAILY 06/14/16 10/29/16 History Imatinib Mesylate [Gleevec] 200 mg PO BID 08/20/16 10/29/16 History Cinacalcet [Sensipar] 30 mg PO MOWEFR 09/07/16 10/29/16 History Magnesium Oxide [Mag-Ox] 400 mg PO BID 09/07/16 10/29/16 History Acetaminophen Tab [Tylenol] 650 mg PO Q6HR PRN 10/21/16 10/29/16 History Bisacodyl [Dulcolax] 10 mg RECTAL DAILY PRN 10/21/16 10/29/16 History Darbepoetin Richy [Aranesp] 100 mcg SQ Q7D 10/21/16 10/29/16 History Folic Acid-Vit B Complex-Vit C 1 cap PO DAILY@1700 10/21/16 10/29/16 History [Nephrocaps] INSULIN LISPRO (humaLOG) [humaLOG See Protocol SQ ACHS 10/21/16 10/29/16 History (formulary)] Levothyroxine Sodium [Synthroid] 300 mcg PO MOTUWETHFRSA 10/21/16 10/29/16 History Levothyroxine Sodium [Synthroid] 450 mcg PO LEON 10/21/16 10/29/16 History Magnesium Hydroxide [Milk of 2,400 mg PO BID 10/21/16 10/29/16 History Magnesia] Midodrine HCl [ProAmatine] 10 mg PO AC-TID 10/21/16 10/29/16 History Midodrine [ProAmatine] 10 mg PO TUTHSA 10/21/16 10/29/16 History Na Phos,M-B/Na Phos,Di-Ba [Fleet 133 ml RECTAL DAILY PRN 10/21/16 10/29/16 History Adult] Sulfamethox-Tmp 800-160Mg [Bactrim 1 tab PO Q12HR 10/21/16 10/29/16 History DS 800-160 mg] Warfarin [Coumadin] 2.5 mg PO SUMOTUTHSA 10/21/16 10/29/16 History Warfarin [Coumadin] 5 mg PO WEFR 10/21/16 10/29/16 History Lanthanum Carbonate [Fosrenol] 1,000 mg PO DIRECTED 10/22/16 10/29/16 History Nystatin 100,000 Unit/ml Susp 5 ml PO QID 10/29/16 10/29/16 History [Mycostatin Oral Susp] Allergies Allergy/AdvReac Type Severity Reaction Status Date / Time No Known Allergies Allergy Verified 10/29/16 18:35 Physical Examination Inspection of the left hip reveals a healing surgical wound that currently appears to be benign. There is no dehiscence or drainage. There is no active bleeding. There is no apparent erythema in the surrounding tissue. There is no fluctuance or fluid collections. It is not hot to touch. Palpation the left hip does not elicit a pain response. Range of motion is not tested. The knee range of motion appears to be painless with passive range of motion and stable ligamentously. Perfusion to the proximal left lower extremity appears to be adequate. Results - Labs Labs: Abnormal Lab Results - Last 24 Hours (Table) 10/31/16 10/31/16 10/31/16 Range/Units 05:49 17:02 21:03 WBC (3.8-10.6) k/uL RBC (4.30-5.90) m/uL Hgb (13.0-17.5) gm/dL Hct (39.0-53.0) % MCV (80.0-100.0) fL MCHC (31.0-37.0) g/dL RDW (11.5-15.5) % Neutrophils # (1.3-7.7) k/uL Lymphocytes # (1.0-4.8) k/uL PT (9.0-12.0) sec Sodium (137-145) mmol/L BUN 38 H (9-20) mg/dL Creatinine 4.29 H (0.66-1.25) mg/dL Glucose 132 H (74-99) mg/dL POC Glucose (mg/dL) 106 H 120 H (75-99) mg/dL Calcium 6.8 L (8.4-10.2) mg/dL Magnesium (1.6-2.3) mg/dL Iron 22 L (49-181) ug/dL TIBC 148 L (261-462) ug/dL % Saturation 14.9 L (20-50) % AST (17-59) U/L Alkaline Phosphatase 144 H (38-126) U/L Total Protein 4.7 L (6.3-8.2) g/dL Albumin 2.4 L (3.5-5.0) g/dL Crossmatch 11/01/16 11/01/16 11/01/16 Range/Units 06:07 06:07 06:07 WBC 12.0 H (3.8-10.6) k/uL RBC 2.33 L (4.30-5.90) m/uL Hgb 7.1 L (13.0-17.5) gm/dL Hct 23.6 L (39.0-53.0) % MCV 101.3 H (80.0-100.0) fL MCHC 29.9 L (31.0-37.0) g/dL RDW 16.5 H (11.5-15.5) % Neutrophils # 10.2 H (1.3-7.7) k/uL Lymphocytes # 0.9 L (1.0-4.8) k/uL PT 26.2 H (9.0-12.0) sec Sodium 136 L (137-145) mmol/L BUN 48 H (9-20) mg/dL Creatinine 5.50 H* (0.66-1.25) mg/dL Glucose 106 H (74-99) mg/dL POC Glucose (mg/dL) (75-99) mg/dL Calcium 7.1 L (8.4-10.2) mg/dL Magnesium 2.5 H (1.6-2.3) mg/dL Iron (49-181) ug/dL TIBC (261-462) ug/dL % Saturation (20-50) % AST 90 H (17-59) U/L Alkaline Phosphatase 139 H (38-126) U/L Total Protein 4.9 L (6.3-8.2) g/dL Albumin 2.5 L (3.5-5.0) g/dL Crossmatch 11/01/16 11/01/16 Range/Units 06:23 07:01 WBC (3.8-10.6) k/uL RBC (4.30-5.90) m/uL Hgb (13.0-17.5) gm/dL Hct (39.0-53.0) % MCV (80.0-100.0) fL MCHC (31.0-37.0) g/dL RDW (11.5-15.5) % Neutrophils # (1.3-7.7) k/uL Lymphocytes # (1.0-4.8) k/uL PT (9.0-12.0) sec Sodium (137-145) mmol/L BUN (9-20) mg/dL Creatinine (0.66-1.25) mg/dL Glucose (74-99) mg/dL POC Glucose (mg/dL) 110 H (75-99) mg/dL Calcium (8.4-10.2) mg/dL Magnesium (1.6-2.3) mg/dL Iron (49-181) ug/dL TIBC (261-462) ug/dL % Saturation (20-50) % AST (17-59) U/L Alkaline Phosphatase (38-126) U/L Total Protein (6.3-8.2) g/dL Albumin (3.5-5.0) g/dL Crossmatch See Detail H & H 10/31/16 11/01/16 Range/Units 05:49 06:07 Hgb 7.6 L 7.1 L (13.0-17.5) gm/dL Hct 24.7 L 23.6 L (39.0-53.0) % Coagulation 10/31/16 11/01/16 Range/Units 05:49 06:07 INR 4.3 2.7 (<1.1) Result Diagrams: 11/01/16 06:07 11/01/16 06:07 Assessment and Plan (1) S/p left hip fracture Narrative/Plan: He is pending undergoing left AKA and right toe amputations [place] [address] Farrell. Regards to the left hip we'll get an x-ray to assess its current position and alignment and assess for any abnormalities. His wound at his left hip appears to be healing ok. We'll continue to monitor and make further recommendations as appropriate. No orthopedic intervention otherwise planned at this time. Status: Acute (2) Closed left hip fracture Status: Acute Time with Patient: Less than 30
[2016-11-01 11:48] LABS: Glucose,Whole Blood 111 mg/dL (75-99)
[2016-11-01 11:52] VITALS: RESP 18
--- NOTE | 2016-11-01 12:24 | P.CNPUL ---
History of Present Illness Consult date: 11/01/16 Reason for consult: obstructive sleep apnea Chief complaint: Mental status changes and fever History of present illness: This is a 66-year-old male with a history of multiple medical problems including end-stage renal disease requiring hemodialysis CAD peripheral vascular disease lower extremity gangrene diabetes who apparently developed some mental status changes and rehab. The patient apparently is on CPAP at home for sleep behavior. I was consulted primarily for CPAP settings it appears. The patient is not a particularly good historian. Very agitated and confused. Very inappropriate. Anyway he is undergoing hemodialysis lower in the room. Not a particularly get much history from him. Review of Systems ROS unobtainable: due to mental status Past Medical History Past Medical History: Atrial Fibrillation, Coronary Artery Disease (CAD), Cancer , Chest Pain / Angina, COPD, CVA/TIA, Diabetes Mellitus, Dialysis, Eye Disorder , Hyperlipidemia, Hypertension, Myocardial Infarction ([place]), Prostate Disorder, Renal Disease, Sleep Apnea/CPAP/BIPAP, Thyroid Disorder Additional Past Medical History / Comment(s): Pt recently admitted to [facility] on with cellulitis bilateral lower extremities, toe cyanosis, mild acute/ chronic CHF. Other HX: IDDM type II-insulin pump, ESRD dialysis-peritoneal , nephrolithiasis, chronic anemia, leukemia-CML, metabolic bone disease, abnormal [place] chromosome, "slight stroke"-no deficits, htn cardiovascular disease, chronic CHF, PAD, current discolored toes, chronic low back pain-nerve damage from injury, SAMANTHA doesn't wear his bipap, diabetic neuropathy bilateral legs and feet, diabetic retinopathy, gout, DDD, diverticulosis, vertigo, RLS, BPH. Last Myocardial Infarction Date:: unknown History of Any Multi-Drug Resistant Organisms: None Reported Past Surgical History: Back Surgery, Cholecystectomy, Heart Catheterization, Orthopedic Surgery Additional Past Surgical History / Comment(s): 10/21/15 Unsuccessful PTCA proximal RCA, laminectomy, L knee surgery (stapled ligaments back to bone), heart cath x3 (no stents), insertion of peritoneal catheter, Removal of benign cyst from neck, colonoscopy. Past Anesthesia/Blood Transfusion Reactions: No Reported Reaction Past Psychological History: No Psychological Hx Reported Additional Psychological History / Comment(s): Pt resides with his spouse. He has a walker. He no longer drives, his spouse can drive. pt was at [facility] for rehab prior to admit 10/29/2016 Smoking Status: Former smoker Past Alcohol Use History: None Reported Additional Past Alcohol Use History / Comment(s): started smoking age 13, quit in 2016 Past Drug Use History: None Reported Additional Drug Use History / Comment(s): . - Past Family History Mother Family Medical History: Cancer Additional Family Medical History / Comment(s): Mother of lung cancer at 86 yrs of age. Father Family Medical History: Cancer Additional Family Medical History / Comment(s): Patient has 2 brothers and 2 sisters which patient states are in good health. Medications and Allergies Home Medications Medication Instructions Recorded Confirmed Type Aspirin 81 mg PO DAILY@1700 12/21/15 10/29/16 History Ergocalciferol [Vitamin D2 50,000 unit PO Q14D 12/21/15 10/29/16 History (DRISDOL)] Ranolazine [Ranexa] 500 mg PO BID 12/21/15 10/29/16 History Sevelamer [Renvela] 800 mg PO TID 12/21/15 10/29/16 History Tamsulosin HCl [Flomax] 0.4 mg PO DAILY 12/21/15 10/29/16 History Nitroglycerin Sl Tabs [Nitrostat] 0.4 mg SUBLINGUAL Q5M PRN 02/16/16 10/29/16 History Allopurinol [Zyloprim] 200 mg PO HS 06/14/16 10/29/16 History Pramipexole [Mirapex] 1 mg PO BID 06/14/16 10/29/16 History Rosuvastatin Calcium [Crestor] 5 mg PO DAILY 06/14/16 10/29/16 History Imatinib Mesylate [Gleevec] 200 mg PO BID 08/20/16 10/29/16 History Cinacalcet [Sensipar] 30 mg PO MOWEFR 09/07/16 10/29/16 History Magnesium Oxide [Mag-Ox] 400 mg PO BID 09/07/16 10/29/16 History Acetaminophen Tab [Tylenol] 650 mg PO Q6HR PRN 10/21/16 10/29/16 History Bisacodyl [Dulcolax] 10 mg RECTAL DAILY PRN 10/21/16 10/29/16 History Darbepoetin Richy [Aranesp] 100 mcg SQ Q7D 10/21/16 10/29/16 History Folic Acid-Vit B Complex-Vit C 1 cap PO DAILY@1700 10/21/16 10/29/16 History [Nephrocaps] INSULIN LISPRO (humaLOG) [humaLOG See Protocol SQ ACHS 10/21/16 10/29/16 History (formulary)] Levothyroxine Sodium [Synthroid] 300 mcg PO MOTUWETHFRSA 10/21/16 10/29/16 History Levothyroxine Sodium [Synthroid] 450 mcg PO LEON 10/21/16 10/29/16 History Magnesium Hydroxide [Milk of 2,400 mg PO BID 10/21/16 10/29/16 History Magnesia] Midodrine HCl [ProAmatine] 10 mg PO AC-TID 10/21/16 10/29/16 History Midodrine [ProAmatine] 10 mg PO TUTHSA 10/21/16 10/29/16 History Na Phos,M-B/Na Phos,Di-Ba [Fleet 133 ml RECTAL DAILY PRN 10/21/16 10/29/16 History Adult] Sulfamethox-Tmp 800-160Mg [Bactrim 1 tab PO Q12HR 10/21/16 10/29/16 History DS 800-160 mg] Warfarin [Coumadin] 2.5 mg PO SUMOTUTHSA 10/21/16 10/29/16 History Warfarin [Coumadin] 5 mg PO WEFR 10/21/16 10/29/16 History Lanthanum Carbonate [Fosrenol] 1,000 mg PO DIRECTED 10/22/16 10/29/16 History Nystatin 100,000 Unit/ml Susp 5 ml PO QID 10/29/16 10/29/16 History [Mycostatin Oral Susp] Allergies Allergy/AdvReac Type Severity Reaction Status Date / Time No Known Allergies Allergy Verified 10/29/16 18:35 Physical Exam Osteopathic Statement: *. No significant issues noted on an osteopathic structural exam other than those noted in the History and Physical/Consult. Vitals: Vital Signs Temp Pulse Pulse Resp BP BP Pulse Ox 11/01/16 12:13 88 11/01/16 11:47 98.3 F 84 18 124/67 11/01/16 11:05 97.9 F 84 16 102/67 98 11/01/16 07:49 80 11/01/16 07:43 97.2 F L 82 18 102/46 95 11/01/16 07:36 80 11/01/16 04:00 85 18 104/53 94 L 11/01/16 00:00 90 18 94/44 96 10/31/16 20:00 99.9 F H 68 18 93/54 96 10/31/16 19:55 88 10/31/16 16:10 87 10/31/16 15:57 100.8 F H 83 20 122/102 Intake and Output 10/31/16 11/01/16 11/01/16 22:59 06:59 14:59 Intake Total 359.000 227.544 344 Output Total 0 Balance 359.000 227.544 344 Intake: IV 34 Amiodarone 450 mg In 34 Dextrose 5% in Water 250 ml @ 1 MG/MIN 34.53 mls/ hr IV .Q7H31M [facility] Rx#: [id number] Intake, IV Titration 259.000 227.544 Amount Amiodarone 450 mg In 259.000 227.544 Dextrose 5% in Water 250 ml @ 1 MG/MIN 34.53 mls/ hr IV .Q7H31M [facility] Rx#: [id number] Oral 100 Blood Product 310 Rc As-1 Unit 310 [id number] Rc As-1 Unit 0 [id number] Output: Urine 0 Other: Voiding Method Diaper Diaper Incontinent Incontinent Weight 106.3 kg No acute distress, not particularly oriented. Undergoing hemodialysis at time of the evaluation. HEENT examination is grossly unremarkable. Nasal O2 in place. Neck is Supple. Full range of motion. Cardiovascular examination reveals regular rhythm rate. Heart sounds are distant. Hemodialysis catheter is noted on the chest wall. Next Lungs reveal few scattered rhonchi. Breath sounds are diminished. Abdomen is obese. Extremities reveal gangrenous changes in both feet. Results - Laboratory Findings CBC and BMP: 11/01/16 06:07 11/01/16 06:07 PT/INR, D-dimer PT 26.2 sec (9.0-12.0) H 11/01/16 06:07 INR 2.7 (<1.1) 11/01/16 06:07 Abnormal lab findings: Abnormal Labs 10/30/16 10/30/16 10/30/16 01:21 05:48 07:22 WBC RBC Hgb Hct MCV MCHC RDW Neutrophils # Lymphocytes # PT Sodium BUN Creatinine Glucose POC Glucose (mg/dL) 104 H Calcium Magnesium Iron TIBC % Saturation AST Alkaline Phosphatase Total Creatine Kinase 221 H 235 H CK-MB (CK-2) 6.5 H* 5.9 H* Troponin I 0.202 H* 0.189 H* Total Protein Albumin Crossmatch 10/30/16 10/30/16 10/31/16 12:39 16:30 05:49 WBC RBC Hgb Hct MCV MCHC RDW Neutrophils # Lymphocytes # PT Sodium BUN 38 H Creatinine 4.29 H Glucose 132 H POC Glucose (mg/dL) 110 H 156 H Calcium 6.8 L Magnesium Iron 22 L TIBC 148 L % Saturation 14.9 L AST Alkaline Phosphatase 144 H Total Creatine Kinase CK-MB (CK-2) Troponin I Total Protein 4.7 L Albumin 2.4 L Crossmatch 10/31/16 10/31/16 10/31/16 05:49 05:49 05:49 WBC RBC 2.48 L Hgb 7.6 L Hct 24.7 L MCV MCHC 30.8 L RDW 16.8 H Neutrophils # 8.3 H Lymphocytes # 0.7 L PT 42.3 H Sodium BUN Creatinine Glucose POC Glucose (mg/dL) Calcium Magnesium 2.4 H Iron TIBC % Saturation AST Alkaline Phosphatase Total Creatine Kinase CK-MB (CK-2) Troponin I Total Protein Albumin Crossmatch 10/31/16 10/31/16 10/31/16 06:02 17:02 21:03 WBC RBC Hgb Hct MCV MCHC RDW Neutrophils # Lymphocytes # PT Sodium BUN Creatinine Glucose POC Glucose (mg/dL) 172 H 106 H 120 H Calcium Magnesium Iron TIBC % Saturation AST Alkaline Phosphatase Total Creatine Kinase CK-MB (CK-2) Troponin I Total Protein Albumin Crossmatch 11/01/16 11/01/16 11/01/16 06:07 06:07 06:07 WBC 12.0 H RBC 2.33 L Hgb 7.1 L Hct 23.6 L MCV 101.3 H MCHC 29.9 L RDW 16.5 H Neutrophils # 10.2 H Lymphocytes # 0.9 L PT 26.2 H Sodium 136 L BUN 48 H Creatinine 5.50 H* Glucose 106 H POC Glucose (mg/dL) Calcium 7.1 L Magnesium 2.5 H Iron TIBC % Saturation AST 90 H Alkaline Phosphatase 139 H Total Creatine Kinase CK-MB (CK-2) Troponin I Total Protein 4.9 L Albumin 2.5 L Crossmatch 11/01/16 11/01/16 11/01/16 06:23 07:01 11:46 WBC RBC Hgb Hct MCV MCHC RDW Neutrophils # Lymphocytes # PT Sodium BUN Creatinine Glucose POC Glucose (mg/dL) 110 H 111 H Calcium Magnesium Iron TIBC % Saturation AST Alkaline Phosphatase Total Creatine Kinase CK-MB (CK-2) Troponin I Total Protein Albumin Crossmatch See Detail - Diagnostic Findings Chest x-ray: image reviewed (Chest x-ray labs and medications are reviewed.) Assessment and Plan (1) CML (chronic myelocytic leukemia) Status: Acute (2) Cellulitis Status: Acute (3) Diabetes Status: Acute (4) ESRD (end stage renal disease) Status: Acute (5) Hypothyroid Status: Acute (6) Mental status change Status: Acute (7) Paroxysmal a-fib Status: Acute (8) Sepsis Status: Acute (9) Acute non-ST segment elevation myocardial infarction Status: Acute (10) Altered mental status Status: Acute (11) Anemia Status: Acute (12) CHF (congestive heart failure) Status: Acute (13) CHF exacerbation Status: Acute (14) Chest pain Status: Acute Plan: Plan The patient's medications are reviewed. Labs and x-rays are reviewed. We'll see if we can find out what the patient's previous CPAP or BiPAP settings weren' t mimic those while he is here in the hospital. If not we'll just come up with the best settings. Additional recommendations suggestions are forthcoming. We will follow. Time with Patient: Greater than 30
--- NOTE | 2016-11-01 12:45 | P.PN ---
Subjective Principal diagnosis: Cellulitis This is a pleasant 66-year-old gentleman with history of hypertension , hyperlipidemia, end-stage renal disease on dialysis, diastolic congestive heart failure chronic in nature, diabetes, hyperlipidemia, hypothyroidism, COPD , atrial fibrillation, obesity, PVD, obstructive sleep apnea, CML, prior pacemaker implantation, coronary artery disease with unsuccessful angioplasty of the right coronary artery in the past, who presented to the hospital with gangrene of the left foot and evidence of cellulitis. The patient is scheduled to undergo amputation of the left foot by Dr. Stewart and a cardiology consultation was requested for clearance. The patient was seen in consultation by Dr. Lamb, he had an echo performed in August which revealed normal left ventricular systolic function with mitral regurgitation and moderate mitral stenosis. He was also noted to have mild troponin abnormality this admission which is likely secondary to his abnormal renal function. Clinically at this time patient is not in congestive heart failure. He is considered high risk, however needs this lifesaving surgery. was initiated yesterday on amiodarone for a run of nonsustained ventricular tachycardia. He has had no further arrhythmias noted on the monitor, further than occasional PVCs. IV amiodarone has been discontinued and patient has been started on oral amiodarone. Blood pressure this morning at 124/67 with a heart rate in the 80s. Objective - Vital Signs Vital signs: Vital Signs Temp 98.3 F 11/01/16 11:47 Pulse 88 11/01/16 12:13 Resp 18 11/01/16 11:47 BP 124/67 11/01/16 11:47 Pulse Ox 98 11/01/16 11:05 Intake & Output 10/31/16 11/01/16 11/01/16 18:59 06:59 18:59 Intake Total 1463.000 227.544 344 Output Total 0 Balance 1463.000 227.544 344 Weight 103 kg 106.3 kg Intake: IV 548 34 Amiodarone 450 mg In 198 34 Dextrose 5% in Water 250 ml @ 1 MG/MIN 34.53 mls/ hr IV .Q7H31M [facility] Rx#: [id number] Dextrose 5% in Water 100 100 ml @ 618 mls/hr IV .Q10M ONE with Amiodarone 150 mg Rx#:[id number] Vancomycin 1,750 mg In 250 Sodium Chloride 0.9% 250 ml @ 125 mls/hr IVPB ONCE ONE Rx#:[id number] Intake, IV Titration 259.000 227.544 Amount Amiodarone 450 mg In 259.000 227.544 Dextrose 5% in Water 250 ml @ 1 MG/MIN 34.53 mls/ hr IV .Q7H31M [facility] Rx#: [id number] Oral 656 Blood Product 310 Rc As-1 Unit 310 [id number] Rc As-1 Unit 0 [id number] Output: Urine 0 Other: Voiding Method Diaper Diaper Incontinent Incontinent - Exam PHYSICAL EXAMINATION: HEENT: Head is atraumatic, normocephalic. Pupils equal, round. Neck is supple. There is no elevated jugular venous pressure. HEART EXAMINATION: Heart S1 and S2 systolic murmur is heard. CHEST EXAMINATION: Lungs reveal diminished air entry bilaterally with scattered rhonchi and wheezing throughout. ABDOMEN: Soft, nontender. Bowel sounds are heard. No organomegaly noted. EXTREMITIES: Gangrene in the left side involving second, third, fourth, and fifth toe to the middle part of the foot.. NEUROLOGIC patient is awake, alert and oriented -3. . - Labs CBC & Chem 7: 11/01/16 06:07 11/01/16 06:07 Labs: Abnormal Lab Results - Last 24 Hours (Table) 10/31/16 10/31/16 10/31/16 Range/Units 05:49 17:02 21:03 WBC (3.8-10.6) k/uL RBC (4.30-5.90) m/uL Hgb (13.0-17.5) gm/dL Hct (39.0-53.0) % MCV (80.0-100.0) fL MCHC (31.0-37.0) g/dL RDW (11.5-15.5) % Neutrophils # (1.3-7.7) k/uL Lymphocytes # (1.0-4.8) k/uL PT (9.0-12.0) sec Sodium (137-145) mmol/L BUN 38 H (9-20) mg/dL Creatinine 4.29 H (0.66-1.25) mg/dL Glucose 132 H (74-99) mg/dL POC Glucose (mg/dL) 106 H 120 H (75-99) mg/dL Calcium 6.8 L (8.4-10.2) mg/dL Magnesium (1.6-2.3) mg/dL Iron 22 L (49-181) ug/dL TIBC 148 L (261-462) ug/dL % Saturation 14.9 L (20-50) % AST (17-59) U/L Alkaline Phosphatase 144 H (38-126) U/L Total Protein 4.7 L (6.3-8.2) g/dL Albumin 2.4 L (3.5-5.0) g/dL Crossmatch 11/01/16 11/01/16 11/01/16 Range/Units 06:07 06:07 06:07 WBC 12.0 H (3.8-10.6) k/uL RBC 2.33 L (4.30-5.90) m/uL Hgb 7.1 L (13.0-17.5) gm/dL Hct 23.6 L (39.0-53.0) % MCV 101.3 H (80.0-100.0) fL MCHC 29.9 L (31.0-37.0) g/dL RDW 16.5 H (11.5-15.5) % Neutrophils # 10.2 H (1.3-7.7) k/uL Lymphocytes # 0.9 L (1.0-4.8) k/uL PT 26.2 H (9.0-12.0) sec Sodium 136 L (137-145) mmol/L BUN 48 H (9-20) mg/dL Creatinine 5.50 H* (0.66-1.25) mg/dL Glucose 106 H (74-99) mg/dL POC Glucose (mg/dL) (75-99) mg/dL Calcium 7.1 L (8.4-10.2) mg/dL Magnesium 2.5 H (1.6-2.3) mg/dL Iron (49-181) ug/dL TIBC (261-462) ug/dL % Saturation (20-50) % AST 90 H (17-59) U/L Alkaline Phosphatase 139 H (38-126) U/L Total Protein 4.9 L (6.3-8.2) g/dL Albumin 2.5 L (3.5-5.0) g/dL Crossmatch 11/01/16 11/01/16 11/01/16 Range/Units 06:23 07:01 11:46 WBC (3.8-10.6) k/uL RBC (4.30-5.90) m/uL Hgb (13.0-17.5) gm/dL Hct (39.0-53.0) % MCV (80.0-100.0) fL MCHC (31.0-37.0) g/dL RDW (11.5-15.5) % Neutrophils # (1.3-7.7) k/uL Lymphocytes # (1.0-4.8) k/uL PT (9.0-12.0) sec Sodium (137-145) mmol/L BUN (9-20) mg/dL Creatinine (0.66-1.25) mg/dL Glucose (74-99) mg/dL POC Glucose (mg/dL) 110 H 111 H (75-99) mg/dL Calcium (8.4-10.2) mg/dL Magnesium (1.6-2.3) mg/dL Iron (49-181) ug/dL TIBC (261-462) ug/dL % Saturation (20-50) % AST (17-59) U/L Alkaline Phosphatase (38-126) U/L Total Protein (6.3-8.2) g/dL Albumin (3.5-5.0) g/dL Crossmatch See Detail Assessment and Plan (1) Mental status change Status: Acute (2) Gangrene Status: Acute (3) Sepsis Status: Acute (4) Diabetes Status: Acute (5) ESRD (end stage renal disease) on dialysis Status: Acute (6) Paroxysmal a-fib Status: Acute (7) CML (chronic myelocytic leukemia) Status: Acute (8) Hypothyroid Status: Acute (9) Elevated troponin Status: Acute (10) NSVT (nonsustained ventricular tachycardia) Status: Acute Plan: From cardiology's perspective, IV amiodarone was discontinued, patient is currently on amiodarone 200 mg one tablet by mouth twice a day along with metoprolol tartrate 12-1/2 mg daily. Patient will undergo surgery tomorrow. We will continue to follow. DNP note has been reviewed, I agree with a documented findings and plan of care. Patient was seen and examined.
[2016-11-01] MEDS ORDERED: HEPARIN SODIUM,PORCINE 5,000 UNIT/ML 1 ML VIAL ONE (13:30)
--- NOTE | 2016-11-01 14:56 | P.PN ---
Subjective 66-year-old male one of Dr. Erickson's patient with multiple medical problem was known to have end-stage renal disease on hemodialysis 3 times a week history of CAD, PVD with gangrene change of bilateral lower extremity more than the left on the right side also has history of diabetes history of COPD and carbon dioxide retention as well. Patient was hospitalized few weeks ago for rapid left hip fracture ended up requiring ORIF with Dr. Grady [facility] have limited weightbearing on the hip area watch his in [facility] developed to have significant mental status change along with intractable worsening pain and discomfort with low-grade temperature and hypotension with symptoms more consistent with sepsis possible worsening condition with his gangrenous toes with infection might be somewhere else patient ended up coming to the emergency department at [facility] where was seen and evaluated his workup initially did not show whole a lot of a change but continued to have significant altered mental status along with worsening gangrene of the left side. Dr. Farrell was contacted with his current condition been seen at the wound clinic decided to admit patient to the hospital start him on IV antibiotic and evaluated while he is in the hospital for potential need for urgent amputation. Patient has's morning run of V. tach he was placed on amiodarone drip patient surgery scheduled for Saturday in the meanwhile his warfarin will be held patient be seen pulmonary as well he is using BiPAP as outpatient and does not use it in a while but will consult pulmonary patient will be tuned up before his surgery he will be on BiPAP as well. 11/01: Patient is undergoing hemodialysis at this time. He is confused. Multiple consultants are in place. Patient is scheduled for left above-the- knee amputation and right second toe amputation tomorrow. He has been off Coumadin. He did have episode of V. tach and he is now on oral amiodarone. Discussed in detail patient's prognosis with his . She has canceled surgery for tomorrow. Also discussed option of comfort care and hospice with patient's . Objective - Vital Signs Vital signs: Vital Signs Temp 97.2 F L 11/01/16 07:43 Pulse 80 11/01/16 07:49 Resp 18 11/01/16 07:43 BP 102/46 11/01/16 07:43 Pulse Ox 95 11/01/16 07:43 Intake & Output 10/31/16 11/01/16 11/01/16 18:59 06:59 18:59 Intake Total 1463.000 227.544 34 Output Total 0 Balance 1463.000 227.544 34 Weight 103 kg 106.3 kg Intake: IV 548 34 Amiodarone 450 mg In 198 34 Dextrose 5% in Water 250 ml @ 1 MG/MIN 34.53 mls/ hr IV .Q7H31M [facility] Rx#: [id number] Dextrose 5% in Water 100 100 ml @ 618 mls/hr IV .Q10M ONE with Amiodarone 150 mg Rx#:[id number] Vancomycin 1,750 mg In 250 Sodium Chloride 0.9% 250 ml @ 125 mls/hr IVPB ONCE ONE Rx#:[id number] Intake, IV Titration 259.000 227.544 Amount Amiodarone 450 mg In 259.000 227.544 Dextrose 5% in Water 250 ml @ 1 MG/MIN 34.53 mls/ hr IV .Q7H31M [facility] Rx#: [id number] Oral 656 Output: Urine 0 Other: Voiding Method Diaper Diaper Incontinent Incontinent - Exam General appearance: Present: cooperative, disheveled, no acute distress, obese. Absent: average body habitus, mild distress, morbidly obese, severe distress, thin - EENT Eyes: Present: normal appearance. Absent: abnormal pupil, anicteric sclerae, disc margins sharp, edentulous, EOMI, PERRLA, fundus normal, photophobia, dentition normal, poor dentition, ptosis, scleral icterus ENT: Present: normal oropharynx. Absent: hard of hearing, hearing grossly normal, NA/AT, other, pharyngeal erythema, thrush, tonsillar exudates, tonsillar swelling Ears: bilateral: normal - Neck Neck: Present: normal ROM Carotids: bilateral: upstroke normal, upstroke delayed Thyroid: bilateral: normal size, enlarged - Respiratory Respiratory: bilateral: diminished, dullness, rales, rhonchi, wheezing, prolonged expiration - Cardiovascular Rhythm: irregularly irregular Heart sounds: normal: S1, S2 Abnormal Heart Sounds: Present: systolic murmur, S3 Gallop - Gastrointestinal General gastrointestinal: Present: decreased bowel sounds, distended, hepatomegaly, normal bowel sounds, soft. Absent: absent bowel sounds, hyperactive bowel sounds, organomegaly, rigid, scaphoid, splenomegaly, tenderness, umbilical hernia, ventral hernia - Integumentary Integumentary Comment(s): Four toes Gangrene in the left leg and 1 toe gangrene in the right side patient is awaiting for amputation on Saturday. Integumentary: Present: cellulitis, cyanotic, normal, normal turgor, pale, rash. Absent: calor, decreased turgor, flushed, jaundiced, ulcer - Neurologic Neurologic: Present: CNII-XII intact - Musculoskeletal Musculoskeletal: Present: generalized weakness, strength equal bilaterally, right sided weakness. Absent: gait normal, left sided weakness - Psychiatric Psychiatric: Present: A&O x's 3, appropriate affect. Absent: intact judgment & insight - Labs CBC & Chem 7: 11/01/16 06:07 11/01/16 06:07 Labs: Abnormal Lab Results - Last 24 Hours (Table) 10/31/16 10/31/16 10/31/16 Range/Units 05:49 17:02 21:03 WBC (3.8-10.6) k/uL RBC (4.30-5.90) m/uL Hgb (13.0-17.5) gm/dL Hct (39.0-53.0) % MCV (80.0-100.0) fL MCHC (31.0-37.0) g/dL RDW (11.5-15.5) % Neutrophils # (1.3-7.7) k/uL Lymphocytes # (1.0-4.8) k/uL PT (9.0-12.0) sec Sodium (137-145) mmol/L BUN 38 H (9-20) mg/dL Creatinine 4.29 H (0.66-1.25) mg/dL Glucose 132 H (74-99) mg/dL POC Glucose (mg/dL) 106 H 120 H (75-99) mg/dL Calcium 6.8 L (8.4-10.2) mg/dL Magnesium (1.6-2.3) mg/dL Iron 22 L (49-181) ug/dL TIBC 148 L (261-462) ug/dL % Saturation 14.9 L (20-50) % AST (17-59) U/L Alkaline Phosphatase 144 H (38-126) U/L Total Protein 4.7 L (6.3-8.2) g/dL Albumin 2.4 L (3.5-5.0) g/dL Crossmatch 11/01/16 11/01/16 11/01/16 Range/Units 06:07 06:07 06:07 WBC 12.0 H (3.8-10.6) k/uL RBC 2.33 L (4.30-5.90) m/uL Hgb 7.1 L (13.0-17.5) gm/dL Hct 23.6 L (39.0-53.0) % MCV 101.3 H (80.0-100.0) fL MCHC 29.9 L (31.0-37.0) g/dL RDW 16.5 H (11.5-15.5) % Neutrophils # 10.2 H (1.3-7.7) k/uL Lymphocytes # 0.9 L (1.0-4.8) k/uL PT 26.2 H (9.0-12.0) sec Sodium 136 L (137-145) mmol/L BUN 48 H (9-20) mg/dL Creatinine 5.50 H* (0.66-1.25) mg/dL Glucose 106 H (74-99) mg/dL POC Glucose (mg/dL) (75-99) mg/dL Calcium 7.1 L (8.4-10.2) mg/dL Magnesium 2.5 H (1.6-2.3) mg/dL Iron (49-181) ug/dL TIBC (261-462) ug/dL % Saturation (20-50) % AST 90 H (17-59) U/L Alkaline Phosphatase 139 H (38-126) U/L Total Protein 4.9 L (6.3-8.2) g/dL Albumin 2.5 L (3.5-5.0) g/dL Crossmatch 11/01/16 11/01/16 Range/Units 06:23 07:01 WBC (3.8-10.6) k/uL RBC (4.30-5.90) m/uL Hgb (13.0-17.5) gm/dL Hct (39.0-53.0) % MCV (80.0-100.0) fL MCHC (31.0-37.0) g/dL RDW (11.5-15.5) % Neutrophils # (1.3-7.7) k/uL Lymphocytes # (1.0-4.8) k/uL PT (9.0-12.0) sec Sodium (137-145) mmol/L BUN (9-20) mg/dL Creatinine (0.66-1.25) mg/dL Glucose (74-99) mg/dL POC Glucose (mg/dL) 110 H (75-99) mg/dL Calcium (8.4-10.2) mg/dL Magnesium (1.6-2.3) mg/dL Iron (49-181) ug/dL TIBC (261-462) ug/dL % Saturation (20-50) % AST (17-59) U/L Alkaline Phosphatase (38-126) U/L Total Protein (6.3-8.2) g/dL Albumin (3.5-5.0) g/dL Crossmatch See Detail Assessment and Plan Plan: 1 metabolic encephalopathy: Most likely from sepsis, pain, worsening hypoxia and multiple other medical problem could be medication side effect culture was done patient be treated for his infected toes continue current management consult infectious disease and vascular. 2 worsening gangrene of the left foot and the right as well left foot gangrene involved for toes and spreading in the leg become slightly bit worse since last time patient will be evaluated by vascular and with his persistent pain might need to go for amputation. Final decision with vascular is to do left above- knee amputation and right second toe amputation as well which is scheduled for Saturday currently. 3 sepsis source of infection is any clear so far, patient had a blood culture pending continue IV antibiotic continue current treatment management for now we' ll consult infectious disease. Infectious disease consult is in order and continue current antibiotic for now. 4 ventricular tachycardia: Patient was started on amiodarone oralp consult cardiology continue patient on a cardiac rn. 5 diabetes: Continue patient on insulin continue Accu-Chek with sliding scales coverage. 6 end-stage renal disease: Patient will be going for hemodialysis today via temporary dialysis catheter and the subclavian area. 7 COPD: Continue mixup with graft along with Pulmicort for now. 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 9 A. fib with RVR: Patient is doing well pulse rates under control continue patient on warfarin 5 alternating to 2.5 mg, PT/INR be done daily. 10 BPH: Has been on Flomax 0.4 mg daily. 11 recent left hip fracture post-ORIF will consult orthopedic another x-ray of the hip will be done patient has been on physical therapy still no weight bearing on the hip area. 12 hypothyroidism: Has been on levothyroxine 300 g daily except for 150 g on Saturday. 13 hypotension predialysis: Patient is on midodrine and before dialysis. 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 CODE STATUS: DO NOT RESUSCITATE. DVT prophylaxis: On warfarin. GI prophylaxis: Patient is on omeprazole 20 mg daily. Discharge plan: ECF Impression and plan of care have been directed as dictated by the signing physician. Lacey Peck nurse practitioner acting as scribe for signing physician. Time with Patient: Greater than 30
[2016-11-01] MEDS: PRAMIPEXOLE 1 MG TAB PO SCH ×2 (15:14→21:34)
[2016-11-01] MEDS: METOPROLOL TARTRATE 12.5 MG TAB PO SCH (15:16)
[2016-11-01] MEDS: RANOLAZINE 500 MG TAB.ER.12H PO SCH ×2 (15:16→21:34)
[2016-11-01] MEDS: SULFAMETHOX-TMP 800-160MG 1 EACH TAB PO SCH ×2 (15:16→21:34)
[2016-11-01] MEDS ORDERED: AMIODARONE 200 MG TAB PO SCH (16:00)
[2016-11-01 16:50] LABS: Glucose,Whole Blood 152 mg/dL (75-99)
[2016-11-01] MEDS: SODIUM FERRIC GLUCONAT-SUCROSE 125 MG in SODIUM CHLORIDE 0.9% 100 ML IVPB SCH (17:06)
[2016-11-01] MEDS: ASPIRIN 81 MG CHEW PO SCH (17:08)
[2016-11-01] MEDS: FOLIC ACID-VIT B COMPLEX-VIT C 1 CAP PO SCH (17:09)
--- NOTE | 2016-11-01 17:10 | XR ---
EXAMINATION TYPE: XR Hip Limited LT DATE OF EXAM: 11/01/2016 4:53 PM COMPARISON: September 27, 2016 AP view HISTORY: Postoperative fracture repair TECHNIQUE: Single AP view FINDINGS: The orthopedic hardware is intact. There is interval callus formation evident at the femora l neck fracture site. The femoral head is well-seated within the acetabulum. The bones and joints are otherwise unremarkable as seen. Prominent vascular calcifications are noted throughout the visualized arterial anatomy, as seen on th e prior study. IMPRESSION: No acute process. Interval healing at the fracture site evident.
[2016-11-01] MEDS: AMIODARONE 200 MG TAB PO SCH (21:33)
[2016-11-01] MEDS: PREGABALIN 50 MG CAP PO SCH (21:33)
[2016-11-01] MEDS: ALLOPURINOL 100 MG TAB PO SCH (21:33)
[2016-11-01] MEDS: GLEEVEC 100 MG PO SCH (21:34)
[2016-11-01 21:44] LABS: Glucose,Whole Blood 101 mg/dL (75-99)
[2016-11-01] MEDS ORDERED: DAPTOmycin 500 MG in SODIUM CHLORIDE 0.9% 50 ML IV SCH (22:00)
[2016-11-02] MEDS: INSULIN LISPRO (humaLOG) 300 UNIT/3 ML VIAL SQ SCH ×7 (00:49→17:04)
[2016-11-02 06:22] LABS: INR 2.6 (<1.1); Prothrombin Time 25.5 sec (9.0-12.0)
[2016-11-02 06:23] LABS: Calcium 7.6 mg/dL (8.4-10.2); Potassium 3.9 mmol/L (3.5-5.1)
[2016-11-02 06:34] LABS: Glucose,Whole Blood 100 mg/dL (75-99)
[2016-11-02] MEDS: MIDODRINE 5 MG TAB PO SCH ×3 (06:50→17:05)
[2016-11-02] MEDS: SEVELAMER 800 MG TAB PO SCH ×3 (06:50→17:05)
[2016-11-02] MEDS: PANTOPRAZOLE 40 MG TABLET PO SCH (06:50)
[2016-11-02] MEDS: LEVOTHYROXINE 100 MCG TAB PO SCH (06:50)
--- NOTE | 2016-11-02 08:32 | P.PN ---
Subjective Patient seen in follow-up for end-stage renal disease. He is maintained on hemodialysis on a Saturday schedule. Currently resting in bed. He appears much better today. He is alert. Denies chest pain or shortness of breath. Denies any vomiting or diarrhea. His blood culture is now positive for enterococcus. He does have a permacath for his dialysis access. He is also noted to have gangrene on his feet and was scheduled for vascular intervention today - however the procedure has been canceled for now due to his overall condition. Vital signs are stable. General: The patient appeared well nourished and normally developed. HEENT: Head exam is unremarkable. Neck is without jugular venous distension. LUNGS: Lungs are clear to auscultation and percussion. Breath sounds decreased. HEART: Rate and Rhythm are regular. First and second heart sounds normal. No murmurs, rubs or gallops. ABDOMEN: Abdominal exam reveals normal bowel sounds. Non-tender and non- distended. No evidence of peritonitis. EXTREMITITES: No clubbing, cyanosis, or edema. Objective - Vital Signs Vital signs: Vital Signs Temp 99.9 F H 11/02/16 04:00 Pulse 87 11/02/16 04:00 Resp 18 11/02/16 04:00 BP 114/57 11/02/16 04:00 Pulse Ox 97 11/02/16 04:00 Intake & Output 11/01/16 11/02/16 11/02/16 18:59 06:59 18:59 Intake Total 1494 Output Total 0 Balance 1494 0 Weight 105 kg Intake: IV 34 Amiodarone 450 mg In 34 Dextrose 5% in Water 250 ml @ 1 MG/MIN 34.53 mls/ hr IV .Q7H31M [facility] Rx#: [id number] Intake, IV Titration 100 Amount Sodium Ferric Gluconat- 100 Sucrose 125 mg In Sodium Chloride 0.9% 100 ml @ 100 mls/hr IVPB DAILY [facility] Rx#:[id number] Oral 740 Blood Product 620 Rc As-1 Unit 310 [id number] Rc As-1 Unit 310 [id number] Output: Urine 0 Other: Voiding Method Diaper Incontinent # Voids 0 - Labs CBC & Chem 7: 11/01/16 06:07 11/02/16 05:32 Labs: Abnormal Lab Results - Last 24 Hours (Table) 11/01/16 11/01/16 11/01/16 Range/Units 07:01 11:46 16:49 PT (9.0-12.0) sec Sodium (137-145) mmol/L BUN (9-20) mg/dL Creatinine (0.66-1.25) mg/dL POC Glucose (mg/dL) 111 H 152 H (75-99) mg/dL Calcium (8.4-10.2) mg/dL Crossmatch See Detail 11/01/16 11/02/16 11/02/16 Range/Units 21:28 05:32 05:40 PT 25.5 H (9.0-12.0) sec Sodium 136 L (137-145) mmol/L BUN 33 H (9-20) mg/dL Creatinine 4.00 H (0.66-1.25) mg/dL POC Glucose (mg/dL) 101 H (75-99) mg/dL Calcium 7.6 L (8.4-10.2) mg/dL Crossmatch 11/02/16 Range/Units 06:15 PT (9.0-12.0) sec Sodium (137-145) mmol/L BUN (9-20) mg/dL Creatinine (0.66-1.25) mg/dL POC Glucose (mg/dL) 100 H (75-99) mg/dL Calcium (8.4-10.2) mg/dL Crossmatch Assessment and Plan Plan: Assessment: #1. End-stage renal disease maintained on hemodialysis on a Saturday schedule. #2. Hypotension maintained on Midodrine. #3. Anemia of chronic kidney disease. Iron deficiency present. Status post 2 units of packed red blood cell yesterday. #4. Left toe gangrene. #5. Insulin-dependent diabetes mellitus. #6. Chronic kidney disease mineral bone disease. #7. Enterococcus bacteremia. Plan: Hemodialysis tomorrow with ultrafiltration as tolerated. Continue with IV iron. Maintain aranesp. Antibiotics per infectious disease recommendations - if permacath is the presumed source of infection and needs to be discontinued, he will need a temporary Shahzad catheter until bacteremia clears. Magnesium level was slightly elevated. Magnesium supplementation has been discontinued.
[2016-11-02] MEDS: PRAMIPEXOLE 1 MG TAB PO SCH (08:56)
[2016-11-02] MEDS: HYDROcodone/APAP 5-325MG 1 EACH TAB PO PRN (08:56)
[2016-11-02] MEDS: RANOLAZINE 500 MG TAB.ER.12H PO SCH (08:56)
[2016-11-02] MEDS: TAMSULOSIN 0.4 MG CAP.ER.24H PO SCH (08:57)
[2016-11-02] MEDS: NYSTATIN 100,000 UNIT/ML SUSP 500,000 UNIT/5 ML CUP PO SCH ×3 (08:57→17:06)
[2016-11-02] MEDS: GLEEVEC 100 MG PO SCH (08:57)
[2016-11-02] MEDS: METOPROLOL TARTRATE 12.5 MG TAB PO SCH (08:57)
[2016-11-02] MEDS: ISOSORBIDE MONONITRATE ER 15 MG TAB PO SCH (08:57)
[2016-11-02] MEDS: SODIUM FERRIC GLUCONAT-SUCROSE 125 MG in SODIUM CHLORIDE 0.9% 100 ML IVPB SCH (08:57)
[2016-11-02] MEDS: AMIODARONE 200 MG TAB PO SCH (08:57)
[2016-11-02] MEDS: LISINOPRIL 2.5 MG TAB PO SCH (08:57)
[2016-11-02] MEDS: ATORVASTATIN 10 MG TAB PO SCH (08:57)
[2016-11-02] MEDS: FUROSEMIDE 80 MG TAB PO SCH ×2 (08:57→17:08)
[2016-11-02] MEDS: IPRATROPIUM-ALBUTEROL 3 ML NEB INHALATION SCH ×2 (09:12→13:55)
[2016-11-02] MEDS: SYMBICORT 160-4.5 MCG INHALER INHALATION SCH (09:12)
--- NOTE | 2016-11-02 10:17 | P.PN ---
Subjective This is a pleasant, somewhat confused, 60-year-old gentleman with a history of hypertension, hyperlipidemia, end-stage renal disease on dialysis, chronic diastolic congestive heart failure, diabetes, hyperlipidemia thyroid is , COPD, atrial fibrillation, PVD, obstructive sleep apnea, CML, prior pacemaker implantation, CAD with unsuccessful angioplasty of the right coronary artery in the past. He presented to the hospital with gangrene of the left foot and evidence of cellulitis. The patient was scheduled to undergo amputation of left foot by Dr. Farrell today however this is been canceled. Cardiology was asked to see the patient for cardiac clearance as the patient had a runs of nonsustained ventricular tachycardia. Patient was placed on IV amiodarone drip which has since been discontinued and is currently on by mouth amiodarone. In reading Dr. Lennon note, it appears he spoke with the in detail regarding prognosis. The subsequently canceled surgery for today. Patient may be placed on comfort care or hospice care. Objective - Vital Signs Vital signs: Vital Signs Temp 99.2 F 11/02/16 08:00 Pulse 70 11/02/16 09:31 Resp 18 11/02/16 09:12 BP 107/53 11/02/16 08:00 Pulse Ox 96 11/02/16 08:00 Intake & Output 11/01/16 11/02/16 11/02/16 18:59 06:59 18:59 Intake Total 1494 Output Total 0 Balance 1494 0 Weight 105 kg Intake: IV 34 Amiodarone 450 mg In 34 Dextrose 5% in Water 250 ml @ 1 MG/MIN 34.53 mls/ hr IV .Q7H31M [facility] Rx#: [id number] Intake, IV Titration 100 Amount Sodium Ferric Gluconat- 100 Sucrose 125 mg In Sodium Chloride 0.9% 100 ml @ 100 mls/hr IVPB DAILY [facility] Rx#:[id number] Oral 740 Blood Product 620 Rc As-1 Unit 310 [id number] Rc As-1 Unit 310 [id number] Output: Urine 0 Other: Voiding Method Diaper Diaper Incontinent Incontinent # Voids 0 - Exam PHYSICAL EXAMINATION: HEENT: Head is atraumatic, normocephalic. Pupils equal, round. Neck is supple. There is no elevated jugular venous pressure. HEART EXAMINATION: Heart sounds regular, S1 and S2 with a systolic murmur. CHEST EXAMINATION: Lungs reveal diminished air entry bilaterally with scattered rhonchi throughout. No chest wall tenderness is noted on palpation or with deep breathing. ABDOMEN: Soft, nontender. Bowel sounds are heard. No organomegaly noted. EXTREMITIES: Gangrene noted to the left foot involving second, third, fourth and fifth toes to the mid foot. NEUROLOGIC patient is awake, alert and oriented to person and place with some confusion noted. . - Labs CBC & Chem 7: 11/01/16 06:07 11/02/16 05:32 Labs: Abnormal Lab Results - Last 24 Hours (Table) 11/01/16 11/01/16 11/01/16 Range/Units 07:01 11:46 16:49 PT (9.0-12.0) sec Sodium (137-145) mmol/L BUN (9-20) mg/dL Creatinine (0.66-1.25) mg/dL POC Glucose (mg/dL) 111 H 152 H (75-99) mg/dL Calcium (8.4-10.2) mg/dL Crossmatch See Detail 11/01/16 11/02/16 11/02/16 Range/Units 21:28 05:32 05:40 PT 25.5 H (9.0-12.0) sec Sodium 136 L (137-145) mmol/L BUN 33 H (9-20) mg/dL Creatinine 4.00 H (0.66-1.25) mg/dL POC Glucose (mg/dL) 101 H (75-99) mg/dL Calcium 7.6 L (8.4-10.2) mg/dL Crossmatch 11/02/16 Range/Units 06:15 PT (9.0-12.0) sec Sodium (137-145) mmol/L BUN (9-20) mg/dL Creatinine (0.66-1.25) mg/dL POC Glucose (mg/dL) 100 H (75-99) mg/dL Calcium (8.4-10.2) mg/dL Crossmatch Assessment and Plan Plan: Assessment and plan #1 mental status changes #2 gangrene #3 sepsis with positive blood cultures #4 diabetes #5 end-stage renal disease on hemodialysis #6 paroxysmal atrial fibrillation #7 CML #8 nonsustained ventricular tachycardia From cardiology's perspective, medications were reviewed and we will continue the same. At this time we agree with primary regarding prognosis and possible Comfort Care. We will follow the patient on an as-needed basis at this time. Please do not hesitate to call with any questions. The above dictated assessment and findings were discussed with signing physician. The impression and plan of care have been directed as dictated. Sally Foster, Nurse Practitioner, acting as scribe for signing physician.
--- NOTE | 2016-11-02 10:39 | P.PN ---
Progress Note - Text 66-year-old white male, history of congestive heart failure, history of chronic renal failure, history of peripheral vascular disease, patient has a gangrene of the left foot patient is scheduled to have a above-knee amputation for the last few days patient has been infused cusp with the family and Dr. Galvan patient is going to hospice care we will hold the surgery
[2016-11-02 11:50] LABS: Glucose,Whole Blood 124 mg/dL (75-99)
[2016-11-02] MEDS: CINACALCET 30 MG TAB PO SCH (12:51)
[2016-11-02 13:10] VITALS: BP 109/58; PULSE 74; TEMP 98.9
--- NOTE | 2016-11-02 14:20 | P.PN ---
Subjective 66-year-old male one of Dr. Erickson's patient with multiple medical problem was known to have end-stage renal disease on hemodialysis 3 times a week history of CAD, PVD with gangrene change of bilateral lower extremity more than the left on the right side also has history of diabetes history of COPD and carbon dioxide retention as well. Patient was hospitalized few weeks ago for rapid left hip fracture ended up requiring ORIF with Dr. Grady [facility] still have [facility] weightbearing on the hip area watch his in [facility] developed to have significant mental status change along with intractable worsening pain and discomfort with low-grade temperature and hypotension with symptoms more consistent with sepsis possible worsening condition with his gangrenous toes with infection might be somewhere else patient ended up coming to the emergency department at [facility] where was seen and evaluated his workup initially did not show whole a lot of a change but continued to have significant altered mental status along with worsening gangrene of the left side. Dr. Farrell was contacted with his current condition been seen at the wound clinic decided to admit patient to the hospital start him on IV antibiotic and evaluated while he is in the hospital for potential need for urgent amputation. Patient has's morning run of V. tach he was placed on amiodarone drip patient surgery scheduled for Saturday in the meanwhile his warfarin will be held patient be seen pulmonary as well he is using BiPAP as outpatient and does not use it in a while but will consult pulmonary patient will be tuned up before his surgery he will be on BiPAP as well. 11/01: Patient is undergoing hemodialysis at this time. He is confused. Multiple consultants are in place. Patient is scheduled for left above-the- knee amputation and right second toe amputation tomorrow. He has been off Coumadin. He did have episode of V. tach and he is now on oral amiodarone. Discussed in detail patient's prognosis with his . She has canceled surgery for tomorrow. Also discussed option of comfort care and hospice with patient's . 11/02: Patient's has decided on hospice care and she has met with [facility] with possible transfer to the [facility] home. Patient will be transferred to the oncology unit at this time. Objective - Vital Signs Vital signs: Vital Signs Temp 99.2 F 11/02/16 08:00 Pulse 70 02/17/17 09:31 Resp 18 11/02/16 09:12 BP 107/53 11/02/16 08:00 Pulse Ox 96 11/02/16 08:00 Intake & Output 11/01/16 11/02/16 11/02/16 18:59 06:59 18:59 Intake Total 1494 400 Output Total 0 Balance 1494 0 400 Weight 105 kg Intake: IV 34 Amiodarone 450 mg In 34 Dextrose 5% in Water 250 ml @ 1 MG/MIN 34.53 mls/ hr IV .Q7H31M RAMA Rx#: [id number] Intake, IV Titration 100 Amount Sodium Ferric Gluconat- 100 Sucrose 125 mg In Sodium Chloride 0.9% 100 ml @ 100 mls/hr IVPB DAILY RAMA Rx#:[id number] Oral 740 400 Blood Product 620 Rc As-1 Unit 310 [id number] Rc As-1 Unit 310 [id number] Output: Urine 0 Other: Voiding Method Diaper Diaper Incontinent Incontinent # Voids 0 - Exam General appearance: Present: cooperative, disheveled, no acute distress, obese. Absent: average body habitus, mild distress, morbidly obese, severe distress, thin - EENT Eyes: Present: normal appearance. Absent: abnormal pupil, anicteric sclerae, disc margins sharp, edentulous, EOMI, PERRLA, fundus normal, photophobia, dentition normal, poor dentition, ptosis, scleral icterus ENT: Present: normal oropharynx. Absent: hard of hearing, hearing grossly normal, NA/AT, other, pharyngeal erythema, thrush, tonsillar exudates, tonsillar swelling Ears: bilateral: normal - Neck Neck: Present: normal ROM Carotids: bilateral: upstroke normal, upstroke delayed Thyroid: bilateral: normal size, enlarged - Respiratory Respiratory: bilateral: diminished, dullness, rales, rhonchi, wheezing, prolonged expiration - Cardiovascular Rhythm: irregularly irregular Heart sounds: normal: S1, S2 Abnormal Heart Sounds: Present: systolic murmur, S3 Gallop - Gastrointestinal General gastrointestinal: Present: decreased bowel sounds, distended, hepatomegaly, normal bowel sounds, soft. Absent: absent bowel sounds, hyperactive bowel sounds, organomegaly, rigid, scaphoid, splenomegaly, tenderness, umbilical hernia, ventral hernia - Integumentary Integumentary Comment(s): Four toes Gangrene in the left leg and 1 toe gangrene in the right side patient is awaiting for amputation on Saturday. Integumentary: Present: cellulitis, cyanotic, normal, normal turgor, pale, rash. Absent: calor, decreased turgor, flushed, jaundiced, ulcer - Neurologic Neurologic: Present: CNII-XII intact - Musculoskeletal Musculoskeletal: Present: generalized weakness, strength equal bilaterally, right sided weakness. Absent: gait normal, left sided weakness - Psychiatric Psychiatric: Present: A&O x's 3, appropriate affect. Absent: intact judgment & insight - Labs CBC & Chem 7: 11/01/16 06:07 11/02/16 05:32 Labs: Abnormal Lab Results - Last 24 Hours (Table) 11/01/16 11/01/16 11/01/16 Range/Units 07:01 11:46 16:49 PT (9.0-12.0) sec Sodium (137-145) mmol/L BUN (9-20) mg/dL Creatinine (0.66-1.25) mg/dL POC Glucose (mg/dL) 111 H 152 H (75-99) mg/dL Calcium (8.4-10.2) mg/dL Crossmatch See Detail 11/01/16 11/02/16 11/02/16 Range/Units 21:28 05:32 05:40 PT 25.5 H (9.0-12.0) sec Sodium 136 L (137-145) mmol/L BUN 33 H (9-20) mg/dL Creatinine 4.00 H (0.66-1.25) mg/dL POC Glucose (mg/dL) 101 H (75-99) mg/dL Calcium 7.6 L (8.4-10.2) mg/dL Crossmatch 11/02/16 Range/Units 06:15 PT (9.0-12.0) sec Sodium (137-145) mmol/L BUN (9-20) mg/dL Creatinine (0.66-1.25) mg/dL POC Glucose (mg/dL) 100 H (75-99) mg/dL Calcium (8.4-10.2) mg/dL Crossmatch Assessment and Plan Plan: 1 metabolic encephalopathy: Most likely from sepsis, pain, worsening hypoxia and multiple other medical problem could be medication side effect culture was done patient be treated for his infected toes continue current management consult infectious disease and vascular. 2 worsening gangrene of the left foot and the right as well left foot gangrene involved for toes and spreading in the leg. Surgery canceled 3 sepsis source of infection is any clear so far, patient had a blood culture pending continue IV antibiotic continue current treatment management for now we' ll consult infectious disease. Infectious disease consult is in order and continue current antibiotic for now. 4 ventricular tachycardia: Patient was started on amiodarone oralp consult cardiology continue patient on a compliance monitor. 5 diabetes: Continue patient on insulin continue Accu-Chek with sliding scales coverage. 6 end-stage renal disease: Patient will be going for hemodialysis today via temporary dialysis catheter and the subclavian area. 7 COPD: Continue mixup with graft along with Pulmicort for now. 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 9 A. fib with RVR: Patient is doing well pulse rates under control continue patient on warfarin 5 alternating to 2.5 mg, PT/INR be done daily. 10 BPH: Has been on Flomax 0.4 mg daily. 11 recent left hip fracture post-ORIF will consult orthopedic another x-ray of the hip will be done patient has been on physical therapy still no weight bearing on the hip area. 12 hypothyroidism: Has been on levothyroxine 300 g daily except for 150 g on Saturday. 13 hypotension predialysis: Patient is on midodrine and before dialysis. 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 CODE STATUS: DO NOT RESUSCITATE. DVT prophylaxis: On warfarin. GI prophylaxis: Patient is on omeprazole 20 mg daily. Discharge plan: [facility] home Impression and plan of care have been directed as dictated by the signing physician. Lacey Peck nurse practitioner acting as scribe for signing physician. Time with Patient: Greater than 30
[2016-11-02 14:42] VITALS: BMI 33.2
--- NOTE | 2016-11-02 14:51 | P.PN ---
Subjective Progress note dated 11/02/2016 This is a patient with a history of multiple medical problems including atrial fibrillation CAD CVA diabetes chronic hemodialysis hyperlipidemia hypertension myocardial infarction chronic kidney disease sleep apnea and hypothyroidism. The patient apparently is going to be made hospice. We walked into the room the family members are there with him. He seemed be relatively comfortable. No pain. No shortness of breath. He did receive a Moffit earlier today. His has severe gangrene of both lower extremities especially on the left. He's been seen by vascular surgery. His been in an [id number] recently. He apparently would not want any additional therapy according to his family members. Objective - Vital Signs Vital signs: Vital Signs Temp 98.9 F 11/02/16 12:00 Pulse 74 11/02/16 12:00 Resp 18 11/02/16 12:00 BP 109/58 11/02/16 12:00 Pulse Ox 92 L 11/02/16 12:00 Intake & Output 11/01/16 11/02/16 11/02/16 18:59 06:59 18:59 Intake Total 1494 600 Output Total 0 Balance 1494 0 600 Weight 105 kg 105 kg Intake: IV 34 Amiodarone 450 mg In 34 Dextrose 5% in Water 250 ml @ 1 MG/MIN 34.53 mls/ hr IV .Q7H31M RAMA Rx#: [id number] Intake, IV Titration 100 100 Amount Sodium Ferric Gluconat- 100 100 Sucrose 125 mg In Sodium Chloride 0.9% 100 ml @ 100 mls/hr IVPB DAILY RAMA Rx#:[id number] Oral 740 500 Blood Product 620 As-1 Unit 310 [id number] As-1 Unit 310 [id number] Output: Urine 0 Other: Voiding Method Diaper Diaper Incontinent Incontinent # Voids 0 - Exam No acute distress, seems comfortable. No respiratory distress. Oriented 2. HEENT examination is grossly unremarkable. Mucous membranes are moist. Supple. Full range of motion. No adenopathy. Cardiovascular examination reveals regular rhythm rate. S1 and S2 normal. No distinct murmurs noted. Lungs reveal few scattered rhonchi. No wheezes. No crackles. Abdomen soft. Extremities reveal significant dry gangrene of the distal bilateral lower extremities. No edema. - Labs CBC & Chem 7: 11/01/16 06:07 11/02/16 05:32 Labs: Abnormal Lab Results - Last 24 Hours (Table) 11/01/16 11/01/16 11/02/16 Range/Units 16:49 21:28 05:32 PT (9.0-12.0) sec Sodium 136 L (137-145) mmol/L BUN 33 H (9-20) mg/dL Creatinine 4.00 H (0.66-1.25) mg/dL POC Glucose (mg/dL) 152 H 101 H (75-99) mg/dL Calcium 7.6 L (8.4-10.2) mg/dL 11/02/16 11/02/16 11/02/16 Range/Units 05:40 06:15 11:49 PT 25.5 H (9.0-12.0) sec Sodium (137-145) mmol/L BUN (9-20) mg/dL Creatinine (0.66-1.25) mg/dL POC Glucose (mg/dL) 100 H 124 H (75-99) mg/dL Calcium (8.4-10.2) mg/dL Assessment and Plan (1) CML (chronic myelocytic leukemia) Status: Acute (2) Cellulitis Status: Acute (3) Diabetes Status: Acute (4) ESRD (end stage renal disease) Status: Acute (5) Hypothyroid Status: Acute (6) Mental status change Status: Acute (7) Paroxysmal a-fib Status: Acute (8) Sepsis Status: Acute (9) Acute non-ST segment elevation myocardial infarction Status: Acute (10) Altered mental status Status: Acute (11) Anemia Status: Acute (12) CHF (congestive heart failure) Status: Acute (13) CHF exacerbation Status: Acute (14) Chest pain Status: Acute Plan: Plan The patient's medications are reviewed. Labs and x-rays are reviewed. We'll see if we can find out what the patient's previous CPAP or BiPAP settings weren' t mimic those while he is here in the hospital. If not we'll just come up with the best settings. Additional recommendations suggestions are forthcoming. We will follow. Plan dated 11/02/2016 I will go through the medicine DC all the unnecessary medications. The patient will be placed on hospice. We'll continue to see only as needed. No additional recommendations are made. I did discuss with the family the importance of pain control and the control of any perception of dyspnea. Time with Patient: Less than 30
[2016-11-02 16:48] LABS: Glucose,Whole Blood 101 mg/dL (75-99)
[2016-11-02] MEDS: ASPIRIN 81 MG CHEW PO SCH (17:03)
[2016-11-02] MEDS: FOLIC ACID-VIT B COMPLEX-VIT C 1 CAP PO SCH (17:03)
--- NOTE | 2016-11-02 19:20 | CONS ---
DATE OF CONSULTATION: 11/02/2016 REASON FOR CONSULTATION: Bacteremia. HISTORY OF PRESENT ILLNESS: The patient is a 66-year-old male who is well known to my service from recent admission with which the patient did have left hip cellulitis post surgery that was treated with vancomycin. The patient during that admission was switched to hemodialysis and peritoneal dialysis was discontinued. The patient has been brought to the [facility] ER on 10/29/2016 with chief complaint of mental status changes that has been getting worse for the last 4 to 5 days. The patient become less responsive and fluctuating blood sugars. EMS was called in the patient blood sugar noticed to be 118. The patient subsequently has been evaluated. The patient noticed to have left foot toes gangrene. Patient though did not have any fever on admission, did have fever of 100.8 on 10/31/2016 and a normal white count 10.6 which went up to 12,000 yesterday. The patient did have blood cultures obtained, both of them coming positive with enterococcus which is a VRE. Patient had been treated with the Bactrim as well as vancomycin. I was asked to see the patient last evening for further recommendation regarding antibiotic therapy. All of this information has been obtained from total review of the chart as the patient is currently lethargic, sleepy, unable to wake up and provide any reliable history. Review of systems could not be reliably obtained. All the positive points have been mentioned in the HPI. PAST MEDICAL HISTORY: Significant for end-stage renal disease, peripheral vascular disease, anemia, coronary artery disease, atrial fibrillation, type 2 diabetes mellitus, hypertension, hyperlipidemia, prostate cancer, CML. Left hip fracture, obstructive sleep apnea, CVA, TIA, and COPD. PAST SURGICAL HISTORY: PD catheter placement and subsequent removal and did have hemodialysis catheter on last admission right subclavian, PTCA with stent, cholecystectomy, back surgery. SOCIAL HISTORY: Positive for smoking. No drinking or drug use. FAMILY HISTORY: No pertinent findings were noticed. ALLERGIES: No known drug allergies. Medications include the patient is currently on: 1. Tylenol. 2. [place]. 3. DuoNeb. 4. Zyloprim. 5. Amiodarone. 6. Aspirin. 7. Lipitor. 8. Dulcolax. 9. Symbicort. 10. Vancomycin. Pharmacy to dose. 11. Bactrim DS. 12. Lasix. 13. Humalog. 14. Imdur. 15. Lactulose. 16. Synthroid. 17. Zestril. 18. Lopressor. 19. Nephrocaps. 20. Narcan. 21. Nitrostat. 22. Protonix. 23. Mirapex. 24. Lyrica. 25. Ranexa. 26. Flomax. On examination, blood pressure is 109/58 with a pulse of 74, temperature 98.9. He is 92% on 2 liters nasal cannula. General description is an elderly male, lying in bed in no distress. No tachypnea or accessory muscle of respiration use. HEENT EXAMINATION: Pallor. No scleral icterus. Oral mucous membranes dry. NECK: Trachea central, no thyromegaly. LUNGS: Unlabored breathing. Clear to auscultation anteriorly. HEART: S1, S2. Regular rate and rhythm. ABDOMEN: Soft, no tenderness. EXTREMITIES: Trace edema of feet. The patient noticed to have gangrenous musculoskeletal system. Gangrenous left foot toes. The incision to the left hip area is healed with no redness or any drainage. SKIN EXAMINATION: No rash or mass palpable. NEUROLOGICAL: The patient is mentally lethargic, orientation cannot be determined. LABS: Hemoglobin is 7.1, white count 12,000. BUN of 33, creatinine 4.0. Electrolytes have been normal. Influenza A and B PCR were negative. Blood cultures 2 out of 2 positive for enterococcus which is VRE. DIAGNOSTIC IMPRESSION AND PLAN: Patient with a VRE bacteremia. Source questionably [id number] versus left foot gangrene. The patient did have a low-grade fever though his white count is normal and hemodynamically stable, not requiring pressor support. PLAN: 1. Blood culture has been repeated to make sure there is no evidence of any persistent bacteremia. Should be drawn from the Wmco-X-Mopidqwg at the time of dialysis. 2. Vancomycin and Bactrim has been discontinued and the patient started on Daptomycin 6 mg per kg q48hr. 3. Will follow up with clinical condition and repeat cultures to further adjust the medication if needed. Thank you for this consultation. Will follow this patient along with you. BRONXCARE HEALTH SYSTEMFreda
[2016-11-04] MEDS ORDERED: LEVOTHYROXINE 75 MCG TAB PO SCH (06:30)
[2016-11-05] MEDS ORDERED: DARBEPOETIN ALFA 100MCG/0.5ML SYRINGE SQ SCH (12:00)
[2016-11-08] MEDS ORDERED: ERGOCALCIFEROL 50,000 UNIT CAP PO SCH (12:00)
--- NOTE | 2016-11-13 15:14 | P.DS ---
Providers Date of admission: 10/29/16 21:52 Expected date of discharge: 11/02/16 Attending physician: Hugh Lennon Consults: 10/30/16 13:01 Consult Physician Routine Consulting Provider: Mathieu Grady Consult Reason/Comments: Hip Fx Do you want consulting provider notified?: Yes 10/30/16 13:02 Consult Physician Routine Consulting Provider: Rosibel Manuel Consult Reason/Comments: ESRD Do you want consulting provider notified?: Yes 10/30/16 13:08 Consult Physician Routine Consulting Provider: Serjio Lamb Consult Reason/Comments: CAD abx Trop Do you want consulting provider notified?: Yes 10/30/16 16:09 Consult Physician Routine Consulting Provider: Moshe Brasher Consult Reason/Comments: Positive blood cultures Do you want consulting provider notified?: Yes 10/31/16 14:52 Consult Physician Routine Consulting Provider: Fabio Roman Consult Reason/Comments: requests- bipap orders for sleep Do you want consulting provider notified?: Yes 11/01/16 15:21 Consult Physician Routine Consulting Provider: Irma Brasher Consult Reason/Comments: positive blood cultures Do you want consulting provider notified?: Yes Primary care physician: Peggy Erickson Hospital Course: 66-year-old male one of Dr. Erickson's patient with multiple medical problem was known to have end-stage renal disease on hemodialysis 3 times a week history of CAD, PVD with gangrene change of bilateral lower extremity more than the left on the right side also has history of diabetes history of COPD and carbon dioxide retention as well. Patient was hospitalized few weeks ago for rapid left hip fracture ended up requiring ORIF with Dr. Grady and was transferred to [facility] rehab still have limited weightbearing on the hip area watch his in [facility] developed to have significant mental status change along with intractable worsening pain and discomfort with low-grade temperature and hypotension with symptoms more consistent with sepsis possible worsening condition with his gangrenous toes with infection might be somewhere else patient ended up coming to the emergency department at [facility] where was seen and evaluated his workup initially did not show whole a lot of a change but continued to have significant altered mental status along with worsening gangrene of the left side. Dr. Farrell was contacted with his current condition been seen at the wound clinic decided to admit patient to the hospital start him on IV antibiotic and evaluated while he is in the hospital for potential need for urgent amputation. Patient has's morning run of V. tach he was placed on amiodarone drip patient surgery scheduled for Saturday in the meanwhile his warfarin will be held patient be seen pulmonary as well he is using BiPAP as outpatient and does not use it in a while but will consult pulmonary patient will be tuned up before his surgery he will be on BiPAP as well. 11/01: Patient is undergoing hemodialysis at this time. He is confused. Multiple consultants are in place. Patient is scheduled for left above-the- knee amputation and right second toe amputation tomorrow. He has been off Coumadin. He did have episode of V. tach and he is now on oral amiodarone. Discussed in detail patient's prognosis with his . She has canceled surgery for tomorrow. Also discussed option of comfort care and hospice with patient's . 11/02: Patient's has decided on hospice care and she has met with [facility] with possible transfer to the [facility]. Patient will be transferred to the oncology unit at this time. Discharge diagnoses: 1 metabolic encephalopathy: Most likely from sepsis, pain, worsening hypoxia and multiple other medical problems 2 worsening gangrene of the left foot and the right as well left foot gangrene involved for toes and spreading in the leg. 3 sepsis source of infection with worsening gangrene 4 ventricular tachycardia: 5 diabetes Lantus type II, insulin requiring 6 end-stage renal disease 7 COPD 8 CML 9 A. fib with RVR with paroxysmal atrial fibrillation 10 BPH: Has been on Flomax 0.4 mg daily. 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 Discharge plan: [facility] Impression and plan of care have been directed as dictated by the signing physician. Lacey Peck nurse practitioner acting as scribe for signing physician. Patient Condition at Discharge: Stable Plan - Discharge Summary New Discharge Prescriptions: Atropine Ophth Soln 1% 5Ml [Isopto Atropine 1% 5Ml] 2 drops PO Q4HR PRN #1 bottle PRN Reason: Secretions HYDROcodone/APAP 7.5-325MG [[place] 7.5-325] 1 tab PO Q4H PRN #100 tab PRN Reason: Pain LORazepam ORAL CONC [Ativan Intensol] 2 mg PO Q4HR PRN #30 ml PRN Reason: Anxiety Morphine Oral Soln [Roxanol Oral Soln Conc 20MG/ML] 5 mg PO Q4H PRN #30 ml PRN Reason: Pain Pregabalin [Lyrica] 50 mg PO HS #30 cap Discharge Medication List Allopurinol [Zyloprim] 200 mg PO HS 06/14/16 [History] Furosemide [Lasix] 80 mg PO BID@0900,1600 tab 10/01/16 [Rx] Ipratropium-Albuterol Nebulize [Duoneb 0.5 mg-3 mg/3 ml Soln] 3 ml INHALATION RT -QID ampul.neb 10/01/16 [Rx] Isosorbide Mononitrate ER [Imdur] 15 mg PO DAILY #30 dose 10/01/16 [Rx] Metoprolol Tartrate 12.5 mg PO DAILY #30 tab 10/01/16 [Rx] Midodrine [ProAmatine] 10 mg PO TUTHSA 10/21/16 [History] Atropine Ophth Soln 1% 5Ml [Isopto Atropine 1% 5Ml] 2 drops PO Q4HR PRN #1 bottle 11/02/16 [Rx] HYDROcodone/APAP 7.5-325MG [[place] 7.5-325] 1 tab PO Q4H PRN #100 tab 11/02/16 [ Rx] LORazepam ORAL CONC [Ativan Intensol] 2 mg PO Q4HR PRN #30 ml 11/02/16 [Rx] Morphine Oral Soln [Roxanol Oral Soln Conc 20MG/ML] 5 mg PO Q4H PRN #30 ml 11/02 [Rx] Pregabalin [Lyrica] 50 mg PO HS #30 cap 11/02/16 [Rx] Follow up Appointment(s)/Referral(s): Peggy Erickson MD [Primary Care Provider] - As Needed Patient Instructions/Handouts: Hospice (DC) Discharge Disposition: DISCH TO HOSPICE [facility]
== END 2016-11-02 20:07 | disposition hospice, inpatient (51) | DRG 871 ==
LOC: EC 18:19 → 6SEL 21:52
PROVIDERS: ADMIT Internal Medicine Geriatric Medicine; ATTEND Internal Medicine Geriatric Medicine
PROC: 30233N1 Transfusion of Nonautologous Red Blood Cells into Peripheral Vein, Percutaneous Approach (ICD-10-PCS; principal; 2016-11-01)
PROC: 5A1D60Z (ICD-10-PCS; principal; 2016-11-01)
DX: A41.81 Sepsis due to Enterococcus (principal); I21.4 Non-ST elevation (NSTEMI) myocardial infarction; I47.2 Ventricular tachycardia; G93.41 Metabolic encephalopathy; N18.6 End stage renal disease; I12.0 Hypertensive chronic kidney disease with stage 5 chronic kidney disease or end stage renal disease; C92.10 Chronic myeloid leukemia, BCR/ABL-positive, not having achieved remission; E11.52 Type 2 diabetes mellitus with diabetic peripheral angiopathy with gangrene; I50.32 Chronic diastolic (congestive) heart failure; L03.116 Cellulitis of left lower limb; I48.0 Paroxysmal atrial fibrillation; G25.3 Myoclonus; E11.22 Type 2 diabetes mellitus with diabetic chronic kidney disease; D63.1 Anemia in chronic kidney disease; E03.9 Hypothyroidism, unspecified; E11.40 Type 2 diabetes mellitus with diabetic neuropathy, unspecified; E61.1 Iron deficiency; E78.5 Hyperlipidemia, unspecified; F17.200 Nicotine dependence, unspecified, uncomplicated; G47.33 Obstructive sleep apnea (adult) (pediatric); I25.10 Atherosclerotic heart disease of native coronary artery without angina pectoris; I25.2 Old myocardial infarction; I34.0 Nonrheumatic mitral (valve) insufficiency; I48.2 Chronic atrial fibrillation; J44.9 Chronic obstructive pulmonary disease, unspecified; N40.0 Benign prostatic hyperplasia without lower urinary tract symptoms; Z66 Do not resuscitate; Z79.01 Long term (current) use of anticoagulants; Z79.4 Long term (current) use of insulin; Z79.82 Long term (current) use of aspirin; Z85.46 Personal history of malignant neoplasm of prostate; Z86.14 Personal history of Methicillin resistant Staphylococcus aureus infection; Z86.73 Personal history of transient ischemic attack (TIA), and cerebral infarction without residual deficits; Z87.442 Personal history of urinary calculi; Z95.0 Presence of cardiac pacemaker; Z95.5 Presence of coronary angioplasty implant and graft; Z99.2 Dependence on renal dialysis; R09.02 Hypoxemia
CPT/HCPCS: 36415; 70450; 71010; 73501; 80048; 80053; 80202; 82533; 82550; 82553; 82803; 83036; 83540; 83550; 83605; 83735; 83880; 84484; 85025; 85610; 85730; 86850; 86900; 86901; 86920; 87040; 87077; 87186; 87502; 90935; 93005; 94640; 94760; 96361; 96365; 96366; 96367; 96375; 99285